=== PATIENT | female | born 1945 | race Caucasian/White ===

== ENCOUNTER → 2020-07-19 12:40 | Outpatient (BNVA) | payer MEDICARE, SELFPAY | PROVIDERS: PCP Internal Medicine; Visit Provider Internal Medicine Cardiovascular Disease | DX: I50.9 Heart failure, unspecified (principal); N18.6 End stage renal disease; Z99.2 Dependence on renal dialysis; I25.708 Atherosclerosis of coronary artery bypass graft(s), unspecified, with other forms of angina pectoris | CPT/HCPCS: 99212 ==

== ENCOUNTER 2020-08-18 19:10 | Emergency (ER) | payer MEDICARE, SELFPAY ==
--- NOTE | ~2020-08-18 | XR_ITS ---
EXAMINATION: XR CHEST CLINICAL INFORMATION: Weakness COMPARISON: CT abdomen pelvis 09/23/2019 and chest radiograph 09/20/2019 TECHNIQUE: Frontal view of the chest was obtained. FINDINGS: There is mild cardiac enlargement without evidence of CHF. Again seen is increased density in the retrocardiac region of the left lung base consistent with atelectasis/infiltrates/collapse plus minus pleural effusion. Findings are slightly increased when compared to the prior chest radiograph. At the time of the prior chest CT, left effusion and left lower lobe atelectasis was present. XR/XR chest 1V IMPRESSION: Left basilar infiltrate/atelectasis with associated probable effusion.
[2020-08-18 19:44] VITALS: BP 151/43; BP 160/50; PULSE 63; PULSE 70; RESP 18; TEMP 36.7; O2SAT 97; BMI 28.3
[2020-08-18 19:51] VITALS: BP 151/43; PULSE 63; RESP 18; TEMP 36.7; O2SAT 97
[2020-08-18 19:54] LABS: Glucose, Whole Blood 141 mg/dL (60-115)
--- NOTE | 2020-08-18 19:57 | ED_ITS ---
HPI - Weakness General Chief complaint: Weakness Stated complaint: failure to thrive Time Seen by Provider: 08/18/20 19:57 Source: patient Mode of arrival: ambulatory Limitations: no limitations History of Present Illness HPI Narrative: Patient's history of diabetes and sees renal disease on dialysis for last 2 years been feeling weak for last 2 weeks getting worse today while walking the kitchen she felt very weak slumped down and fell hitting her buttocks to the ground patient denies any fever no chills no shortness of breath no cough no chest pain or palpitation no syncope no seizures patient had full dialysis today patient denies any abdominal pain no nausea no vomiting has good appetite MD Complaint: generalized weakness Onset (ago): week(s) (2) Duration: constant Location: generalized Related Data Home Medications Medication Instructions Recorded Confirmed albuterol sulfate 90 mcg/actuation 2 puff INHALATION Q4H PRN g 06/30/20 0 07/19/20 aerosol inhaler atorvastatin 80 mg tablet 80 mg PO DAILY 06/30/20 07/19/20 cholecalciferol (vitamin D3) 25 25 mcg PO DAILY 06/30/20 07/19/20 mcg (1,000 unit) capsule dulaglutide 1.5 mg/0.5 mL mg SUBCUT 06/30/20 07/19/20 subcutaneous pen injector fenofibrate micronized 134 mg 134 mg PO DAILY 06/30/20 07/19/20 capsule fluticasone propionate 50 1 spray INTRANASAL DAILY 06/30/20 07/19/20 mcg/actuation nasal spray,suspension omeprazole 20 mg capsule,delayed 20 mg PO DAILY 06/30/20 07/19/20 release ondansetron 4 mg disintegrating 8 mg PO DIRECTED 06/30/20 07/19/20 tablet paroxetine HCl 20 mg tablet 20 mg PO QAM 06/30/20 07/19/20 sevelamer carbonate 800 mg tablet 800 mg PO TID tab 06/30/20 07/19/20 Previous Rx's Medication Instructions Recorded isosorbide dinitrate 10 mg tablet 10 mg PO BID 90 Days #180 tab 05/21/20 montelukast 10 mg tablet 10 mg PO DAILY #90 tab 05/26/20 metoprolol tartrate 25 mg tablet 25 mg PO BID #60 tab 06/07/20 gabapentin 300 mg capsule 300 mg PO BID 30 Days #60 cap 06/30/20 omega-3 acid ethyl esters 1 gram 2 cap PO DAILY #180 cap 07/01/20 capsule aspirin 81 mg tablet,delayed 81 mg PO DAILY #90 tab 07/19/20 release clopidogrel 75 mg tablet 75 mg PO DAILY #90 tab 07/19/20 losartan 25 mg tablet 25 mg PO DAILY #90 tab 07/19/20 Allergies Allergy/AdvReac Type Severity Reaction Status Date / Time Penicillins Allergy Mild RASH Verified 08/18/20 19:50 penicillin V Allergy Unknown rash of Verified 08/18/20 19:50 skin Review of Systems Review of Systems: Constitutional : No Weight loss, No Fever, No Chills ENT/Mouth : No sore throat, No Rhinorrhea Eyes: No Eye Pain, No Swelling Cardiovascular : No Chest Pain, no palpitations Respiratory : No Cough, No Sputum, no shortness of breath Gastrointestinal : no Nausea, No Vomiting, No Diarrhea, No abdominal Pain, no black stools Genitourinary : No Dysuria, No Urinary Frequency Musculoskeletal : No joint pain, No Myalgias, No Joint Swelling Skin : No Skin Lesions, No rash Neuro : No Weakness, No Numbness, No Dizziness, No Headache Psych : No Anxiety/Panic, No Depression Heme/Lymph: No Bruising, No Lymphadenopathy Endocrine : No Polyuria, No Polydipsia All other systems reviewed and are negative FORMERLY [facility], [facility] Past Medical History Medical History (Updated 08/19/20 @ 00:43 by Isrrael Trevino MD) Anemia Aortic stenosis CHF (congestive heart failure), NYHA class I Coronary artery disease ESRD (end stage renal disease) on dialysis H/O non-ST elevation myocardial infarction (NSTEMI) Hyperlipidemia Surgical History H/O abdominal hysterectomy History of angioplasty History of biopsy History of cataract surgery History of surgery Family History Family History Father No problems noted. Mother Bladder cancer Maternal Aunt Colon cancer Paternal Aunt Colon cancer Social History Social History Smoking Status: Former smoker Advance Directives: No Physical Exam Vital Signs: Vital Signs: Last Vital Signs Temp 97.8 F 08/18/20 21:23 Pulse 60 08/19/20 00:03 Resp 16 08/19/20 00:03 BP 145/65 H 08/19/20 00:03 Pulse Ox 95 08/19/20 00:03 Body Mass Index 28.3 Appearance: Alert. Oriented X3. No acute distress. Eyes: Pupils equal, round and reactive to light. ENT: Pharynx normal. Neck: Normal inspection. Neck supple. CVS: Normal heart rate and rhythm. Pulses normal. ,systolic ejection murmur of aortic stenosis at the apex Respiratory: No respiratory distress. Breath sounds normal. Abdomen: Soft and nontender. Bowel sounds are present, no mass palpable, no CVA tenderness Skin: Skin warm and dry. Normal skin color. Normal skin turgor. Extremities: No lower extremity edema. Av fistula left arm bruit present Neuro: Oriented X 3. No motor deficit. No sensory deficit. Course Course Course Narrative: Patient with generalized weakness workup is negative for any acute pathology had elevated troponin but no significant delta rise no acute EKG changes patient has PT coming to her house tomorrow will discharge patient home MDM - Weakness Lab Data Attestation: I reviewed the patient's lab results. Result diagrams: 08/18/20 21:14 08/18/20 21:14 Labs: Lab Results 08/18/20 08/18/20 08/18/20 Range/Units 19:41 20:53 21:14 WBC 8.7 (4.8-10.8) X10*3/uL RBC 3.70 L (4.20-5.50) X10*6/uL Hgb 10.6 L (12.0-16.0) g/dl Hct 34.6 L (37-47) % MCV 93.5 (80-98) fL MCH 28.6 (27.0-33.0) pg MCHC 30.6 L (31.0-35.0) g/dl RDW 14.6 (11.0-16.0) % Plt Count 210 (160-400) X10*3/uL MPV 11.6 (9.4-12.3) fL Immature Gran % (Auto) 0.2 (0.0-0.4) % Neut % (Auto) 52.2 (45-73) % Lymph % (Auto) 32.3 (20-40) % [place] % (Auto) 12.2 H (2-11) % Eos % (Auto) 2.9 (0-4) % Baso % (Auto) 0.2 (0-2) % Lymph # (Auto) 2.8 (1.2-4.9) X10*3/uL [place] # (Auto) 1.1 (0.1-1.2) X10*3/uL Eos # (Auto) 0.3 (0.0-0.4) X10*3/uL Baso # (Auto) 0.0 (0.0-0.2) X10*3/uL Abs Immat Gran (auto) 0.02 (0.00-0.03) X10*3/uL Absolute Neuts (auto) 4.6 (2.0-8.3) X10*3/uL Absolute Nucleated RBC 0.000 (0.0-0.012) X10*3/uL Nucleated RBC % (auto) 0.0 (0.0-0.2) /100WBC PT (10.8-13.0) SEC INR (0.9-1.1) Sodium (135-145) mmol/L Potassium (3.3-5.1) mmol/L Chloride (96-108) mmol/L Carbon Dioxide (22-29) mmol/L Anion Gap (12-20) BUN (9-16) mg/dL Creatinine (0.5-1.4) mg/dL Estim Creat Clear Calc Estimated GFR POC Glucose 141 H (60-115) mg/dL Random Glucose (60-115) mg/dL Lactic Acid (0.5-2.0) mmol/L Calcium (8.4-10.2) mg/dL Total Bilirubin (0.0-1.0) mg/dL Direct Bilirubin (0.0-0.5) mg/dL AST (5-31) U/L ALT (0-31) U/L Alkaline Phosphatase (39-117) U/L Total Creatine Kinase (26-140) U/L Troponin I High Sens (<3.5-17.0) ng/L Total Protein (6.5-8.0) g/dL Albumin (3.5-5.0) g/dL Urine Color Urine Appearance Urine pH (5.0-8.0) Ur Specific [place] (1.005-1.025) Urine Protein (NEG-TRACE) MG/DL Urine Glucose (UA) (NEG) MG/DL Urine Ketones (NEG) MG/DL Urine Blood (NEG) Urine Nitrite (NEG) Ur Leukocyte Esterase (NEG) Urine RBC (0) /HPF Urine WBC (0-4) /HPF Ur Squamous Epith Cells /LPF Urine Bacteria /LPF COVID-19 ([facility]) Negative (Negative) COVID-19 Clin Com See Note 08/18/20 08/18/20 08/18/20 Range/Units 21:14 21:14 21:14 WBC (4.8-10.8) X10*3/uL RBC (4.20-5.50) X10*6/uL Hgb (12.0-16.0) g/dl Hct (37-47) % MCV (80-98) fL MCH (27.0-33.0) pg MCHC (31.0-35.0) g/dl RDW (11.0-16.0) % Plt Count (160-400) X10*3/uL MPV (9.4-12.3) fL Immature Gran % (Auto) (0.0-0.4) % Neut % (Auto) (45-73) % Lymph % (Auto) (20-40) % [place] % (Auto) (2-11) % Eos % (Auto) (0-4) % Baso % (Auto) (0-2) % Lymph # (Auto) (1.2-4.9) X10*3/uL [place] # (Auto) (0.1-1.2) X10*3/uL Eos # (Auto) (0.0-0.4) X10*3/uL Baso # (Auto) (0.0-0.2) X10*3/uL Abs Immat Gran (auto) (0.00-0.03) X10*3/uL Absolute Neuts (auto) (2.0-8.3) X10*3/uL Absolute Nucleated RBC (0.0-0.012) X10*3/uL Nucleated RBC % (auto) (0.0-0.2) /100WBC PT 16.4 H (10.8-13.0) SEC INR 1.4 H (0.9-1.1) Sodium 136 (135-145) mmol/L Potassium 3.8 (3.3-5.1) mmol/L Chloride 97 (96-108) mmol/L Carbon Dioxide 29 (22-29) mmol/L Anion Gap 14 (12-20) BUN 30 H (9-16) mg/dL Creatinine 3.90 H (0.5-1.4) mg/dL Estim Creat Clear Calc 12.2 Estimated GFR 11 POC Glucose (60-115) mg/dL Random Glucose 135 H (60-115) mg/dL Lactic Acid 1.5 (0.5-2.0) mmol/L Calcium 7.9 L (8.4-10.2) mg/dL Total Bilirubin 0.7 (0.0-1.0) mg/dL Direct Bilirubin 0.3 (0.0-0.5) mg/dL AST 19 (5-31) U/L ALT 10 (0-31) U/L Alkaline Phosphatase 99 (39-117) U/L Total Creatine Kinase 298 H (26-140) U/L Troponin I High Sens (<3.5-17.0) ng/L Total Protein 6.2 L (6.5-8.0) g/dL Albumin 3.0 L (3.5-5.0) g/dL Urine Color Urine Appearance Urine pH (5.0-8.0) Ur Specific [place] (1.005-1.025) Urine Protein (NEG-TRACE) MG/DL Urine Glucose (UA) (NEG) MG/DL Urine Ketones (NEG) MG/DL Urine Blood (NEG) Urine Nitrite (NEG) Ur Leukocyte Esterase (NEG) Urine RBC (0) /HPF Urine WBC (0-4) /HPF Ur Squamous Epith Cells /LPF Urine Bacteria /LPF COVID-19 ([facility]) (Negative) COVID-19 Clin Com 08/18/20 08/18/20 08/18/20 Range/Units 21:14 22:11 23:52 WBC (4.8-10.8) X10*3/uL RBC (4.20-5.50) X10*6/uL Hgb (12.0-16.0) g/dl Hct (37-47) % MCV (80-98) fL MCH (27.0-33.0) pg MCHC (31.0-35.0) g/dl RDW (11.0-16.0) % Plt Count (160-400) X10*3/uL MPV (9.4-12.3) fL Immature Gran % (Auto) (0.0-0.4) % Neut % (Auto) (45-73) % Lymph % (Auto) (20-40) % [place] % (Auto) (2-11) % Eos % (Auto) (0-4) % Baso % (Auto) (0-2) % Lymph # (Auto) (1.2-4.9) X10*3/uL [place] # (Auto) (0.1-1.2) X10*3/uL Eos # (Auto) (0.0-0.4) X10*3/uL Baso # (Auto) (0.0-0.2) X10*3/uL Abs Immat Gran (auto) (0.00-0.03) X10*3/uL Absolute Neuts (auto) (2.0-8.3) X10*3/uL Absolute Nucleated RBC (0.0-0.012) X10*3/uL Nucleated RBC % (auto) (0.0-0.2) /100WBC PT (10.8-13.0) SEC INR (0.9-1.1) Sodium (135-145) mmol/L Potassium (3.3-5.1) mmol/L Chloride (96-108) mmol/L Carbon Dioxide (22-29) mmol/L Anion Gap (12-20) BUN (9-16) mg/dL Creatinine (0.5-1.4) mg/dL Estim Creat Clear Calc Estimated GFR POC Glucose (60-115) mg/dL Random Glucose (60-115) mg/dL Lactic Acid (0.5-2.0) mmol/L Calcium (8.4-10.2) mg/dL Total Bilirubin (0.0-1.0) mg/dL Direct Bilirubin (0.0-0.5) mg/dL AST (5-31) U/L ALT (0-31) U/L Alkaline Phosphatase (39-117) U/L Total Creatine Kinase (26-140) U/L Troponin I High Sens 95.6 H 93.9 H (<3.5-17.0) ng/L Total Protein (6.5-8.0) g/dL Albumin (3.5-5.0) g/dL Urine Color YELLOW Urine Appearance CLEAR Urine pH 7.5 (5.0-8.0) Ur Specific [place] 1.015 (1.005-1.025) Urine Protein 2+ H (NEG-TRACE) MG/DL Urine Glucose (UA) NEG (NEG) MG/DL Urine Ketones NEG (NEG) MG/DL Urine Blood TRACE (NEG) Urine Nitrite NEG (NEG) Ur Leukocyte Esterase NEG (NEG) Urine RBC 0-2 (0) /HPF Urine WBC 0 (0-4) /HPF Ur Squamous Epith Cells 1+ /LPF Urine Bacteria TRACE /LPF COVID-19 ([facility]) (Negative) COVID-19 Clin Com ECG Data Attestation: I personally reviewed and interpreted this ECG as follows: Interpretation: Normal sinus rhythm heart rate 62 beats per minute LVH left axis deviation right bundle-branch block nonspecific T inversion in anterior lateral leads no significant change from previous EKG no acute ischemia Discharge Plan Discharge Clinical Impression: Weakness Patient Disposition: Home, Self-Care Instructions: Weakness (ED) Additional Instructions: Continue medications as prescribed by PCP and follow-up with physical therapy as planned Prescriptions: No Action isosorbide dinitrate 10 mg tablet 10 mg PO BID 90 Days Qty: 180 RF: 0 montelukast 10 mg tablet 10 mg PO DAILY Qty: 90 RF: 3 metoprolol tartrate 25 mg tablet 25 mg PO BID Qty: 60 RF: 1 omega-3 acid ethyl esters 1 gram capsule 2 cap PO DAILY Qty: 180 RF: 3 ondansetron 4 mg tablet,disintegrating 8 mg PO DIRECTED RF: 0 paroxetine HCl 20 mg tablet 20 mg PO QAM RF: 0 Trulicity 1.5 mg/0.5 mL pen injector subcut RF: 0 fenofibrate micronized 134 mg capsule 134 mg PO DAILY RF: 0 atorvastatin 80 mg tablet 80 mg PO DAILY RF: 0 omeprazole 20 mg capsule,delayed release(DR/EC) 20 mg PO DAILY RF: 0 albuterol sulfate [ProAir HFA] 90 mcg/actuation HFA aerosol inhaler 2 puff inhalation Q4H PRNRF: 0 fluticasone propionate 50 mcg/actuation spray,suspension 1 spray intranasal DAILY RF: 0 cholecalciferol (vitamin D3) 25 mcg (1,000 unit) capsule 25 mcg PO DAILY RF: 0 sevelamer carbonate 800 mg tablet 800 mg PO TID RF: 0 gabapentin 300 mg capsule 300 mg PO BID 30 Days Qty: 60 RF: 1 aspirin 81 mg tablet,delayed release (DR/EC) 81 mg PO DAILY Qty: 90 RF: 1 clopidogrel [Plavix] 75 mg tablet 75 mg PO DAILY Qty: 90 RF: 1 losartan 25 mg tablet 25 mg PO DAILY Qty: 90 RF: 1
--- NOTE | 2020-08-18 20:02 | ECG_ITS ---
Test Reason : WEAKNESS Blood Pressure : / mmHG Vent. Rate : 062 BPM Atrial Rate : 062 BPM P-R Int : 152 ms QRS Dur : 128 ms QT Int : 484 ms P-R-T Axes : 060 -37 001 degrees QTc Int : 491 ms Normal sinus rhythm Possible Left atrial enlargement Left axis deviation Right bundle branch block Left ventricular hypertrophy with repolarization abnormality Abnormal ECG When compared with ECG of 26-SEP-2019 14:16, QRS duration has decreased Referred By: Isrrael Trevino Electronically Signed By:Wilmer Rivera
[2020-08-18 21:16] LABS: COVID-19 Test Negative (Negative)
[2020-08-18 21:20] LABS: MANUAL DIFF FLAG NO
[2020-08-18 21:21] LABS: Basophils Percent Auto 0.2 % (0-2); Eosinophils Absolute Auto 0.3 X10*3/uL (0.0-0.4); Eosinophils Percent Auto 2.9 % (0-4); Hematocrit 34.6 % (37-47); Hemoglobin 10.6 g/dl (12.0-16.0); Imm Gran Abs Auto 0.02 X10*3/uL (0.00-0.03); Imm Gran Pct Auto 0.2 % (0.0-0.4); Lymphocytes Absolute Auto 2.8 X10*3/uL (1.2-4.9); Lymphocytes Percent Auto 32.3 % (20-40); Mean Corpuscular HGB Conc 30.6 g/dl (31.0-35.0); Mean Corpuscular Hemoglobin 28.6 pg (27.0-33.0); Mean Corpuscular Volume 93.5 fL (80-98); Mean Platelet Volume 11.6 fL (9.4-12.3); Monocytes Absolute Auto 1.1 X10*3/uL (0.1-1.2); Monocytes Percent Auto 12.2 % (2-11); Neutrophils Absolute Auto 4.6 X10*3/uL (2.0-8.3); Neutrophils Percent Auto 52.2 % (45-73); Platelet Count 210 X10*3/uL (160-400); Red Cell Distribution Width 14.6 % (11.0-16.0); White Blood Count 8.7 X10*3/uL (4.8-10.8)
[2020-08-18 21:23] VITALS: BP 169/45; PULSE 61; RESP 15; TEMP 36.6; O2SAT 99
[2020-08-18 21:27] LABS: INTERNATIONAL NORM RATIO 1.4 (0.9-1.1); Prothrombin Time 16.4 SEC (10.8-13.0)
--- NOTE | 2020-08-18 21:34 | PC.NURSE ---
This RN speaking with pt's partner. Partner Conor reports decreased PO intake x almost 2 weeks. Conor phone # [phone].
[2020-08-18 21:43] LABS: Lactic Acid 1.5 mmol/L (0.5-2.0)
[2020-08-18 21:48] LABS: Alanine Aminotransferase 10 U/L (0-31); Alkaline Phosphatase 99 U/L (39-117); Anion Gap 14 (12-20); Aspartate Amino Transferase 19 U/L (5-31); Bilirubin Direct 0.3 mg/dL (0.0-0.5); Bilirubin Total 0.7 mg/dL (0.0-1.0); Blood Urea Nitrogen 30 mg/dL (9-16); Calcium 7.9 mg/dL (8.4-10.2); Carbon Dioxide 29 mmol/L (22-29); Chloride 97 mmol/L (96-108); Creatinine Clr Calc Pharmacy 12.2; Estimated Glomerular Filt Rate 11; Glucose Random 135 mg/dL (60-115); Potassium 3.8 mmol/L (3.3-5.1); Sodium 136 mmol/L (135-145); Total Protein 6.2 g/dL (6.5-8.0)
[2020-08-18 22:18] LABS: Glucose Urine UA NEG (NEG); Leukocyte Esterase Urine NEG (NEG); Nitrite Urine NEG (NEG); PH 7.5 (5.0-8.0); Specific Gravity - Urine 1.015 (1.005-1.025); Urine Blood TRACE (NEG); Urine Ketones NEG (NEG); Urine Protein 2+ MG/DL (NEG-TRACE)
[2020-08-18 22:21] LABS: Appearance Urine CLEAR; Color Urine YELLOW
[2020-08-18 22:26] LABS: RBC Urine 0-2 /HPF (0); WBC Urine 0 /HPF (0-4)
[2020-08-18 22:27] LABS: Bacteria Urine TRACE /LPF; Squamous Epithelial Cell Urine 1+ /LPF
--- NOTE | 2020-08-18 23:02 | PC.NURSE ---
SPOKE WITH PT, PLANS TO DISCHARGE HOME. PT REPORTS FIRST P.T. APPOINTMENT [facility] MORNING. EXPLAINED THAT IF SHORT TEM REHAB IS A POSSIBILTY IN THE FUTURE, IT WOULD TAKE DAYS OF WAITING IN ER. PT IS NOT A CANDIDATE FOR ADMISSION. PARTNER CALLED AND SAME INFORMATION RELAYED. PT GIVEN DIET SODA, CRACKERS AND PUDDING.
--- NOTE | 2020-08-18 23:07 | PC.NURSE ---
Pt partner, Conor, updated on plan for DC and transport home via EMS. Conor aware that plan has been discussed with the pt and that pt is agreeable. Plan for in-home PT services tomorrow. Conor and pt aware of plan for pt to use wheelchair for transport within home until PT clear pt to ambulate safely with walker.
[2020-08-18 23:22] LABS: Troponin-I High Sensitivity 95.6 ng/L (<3.5-17.0)
[2020-08-19 00:03] VITALS: BP 145/65; PULSE 60; RESP 16; O2SAT 95
[2020-08-19 00:34] LABS: Troponin-I High Sensitivity 93.9 ng/L (<3.5-17.0)
--- NOTE | 2020-08-19 01:40 | PC.NURSE ---
Pt's partner Conor made aware of EMS' arrival to [facility], Conor aware that pt is to be transported home at this time.
== END 2020-08-19 01:55 | disposition home or self-care (01) ==
PROVIDERS: Emergency Provider Internal Medicine; PCP Internal Medicine
DX: R62.7 Adult failure to thrive (principal); Z20.822 Contact with and (suspected) exposure to COVID-19; Z87.891 Personal history of nicotine dependence; I50.9 Heart failure, unspecified; Z79.899 Other long term (current) drug therapy
CPT/HCPCS: 36415; 71045; 80048; 80076; 81001; 82550; 82947; 83605; 84484; 85025; 85610; 87040; 87635; 93005; 99284

== ENCOUNTER 2020-10-24 19:56 | Inpatient (IN) | payer MEDICARE, SELFPAY ==
--- NOTE | ~2020-10-24 | XR_ITS ---
EXAMINATION: XR CHEST CLINICAL INFORMATION: Chest pain COMPARISON: Chest x-ray 08/18/2020 TECHNIQUE: Frontal view of the chest was obtained. FINDINGS: Chronic cardiomegaly. Cardiac stents again noted. Atherosclerotic disease of the aortic arch. The lungs are well aerated. Similar chronic diffuse coarsening of the interstitial markings. There is improved aeration of the left lung base. There is no lobar consolidation. Trace left-sided pleural effusion is unchanged. No pneumothorax. XR/XR chest 1V IMPRESSION: Improved aeration of the left lung base. No acute pulmonary pathology.
[2020-10-24 20:07] VITALS: BP 145/59; BP 156/47; PULSE 79; RESP 16; TEMP 36.8; O2SAT 100; BMI 26.0
--- NOTE | 2020-10-24 20:34 | ECG_ITS ---
Test Reason : CHEST PAIN Blood Pressure : / mmHG Vent. Rate : 079 BPM Atrial Rate : 079 BPM P-R Int : 148 ms QRS Dur : 132 ms QT Int : 434 ms P-R-T Axes : 057 -50 101 degrees QTc Int : 497 ms Normal sinus rhythm Possible Left atrial enlargement Right bundle branch block Left anterior fascicular block Bifascicular block ST more depressed in anerolateral leads as well lateral leads s/o of ischemia Abnormal ECG When compared to the previous EKG of ST more depressed in anterolateral leads Referred By: Bjorn Mantilla Electronically Signed By:MERRITT QUINONES MD
[2020-10-24 20:41] LABS: MANUAL DIFF FLAG NO
[2020-10-24 20:45] LABS: Basophils Percent Auto 0.2 % (0-2); Eosinophils Absolute Auto 0.5 X10*3/uL (0.0-0.4); Eosinophils Percent Auto 3.9 % (0-4); Hematocrit 36.6 % (37-47); Hemoglobin 11.2 g/dl (12.0-16.0); Imm Gran Abs Auto 0.04 X10*3/uL (0.00-0.03); Imm Gran Pct Auto 0.3 % (0.0-0.4); Lymphocytes Absolute Auto 4.1 X10*3/uL (1.2-4.9); Lymphocytes Percent Auto 33.9 % (20-40); Mean Corpuscular HGB Conc 30.6 g/dl (31.0-35.0); Mean Corpuscular Hemoglobin 30.1 pg (27.0-33.0); Mean Corpuscular Volume 98.4 fL (80-98); Mean Platelet Volume 11.6 fL (9.4-12.3); Monocytes Absolute Auto 1.2 X10*3/uL (0.1-1.2); Monocytes Percent Auto 9.4 % (2-11); Neutrophils Absolute Auto 6.4 X10*3/uL (2.0-8.3); Neutrophils Percent Auto 52.3 % (45-73); Platelet Count 260 X10*3/uL (160-400); Red Blood Count 3.72 X10*6/uL (4.20-5.50); Red Cell Distribution Width 15.2 % (11.0-16.0); White Blood Count 12.2 X10*3/uL (4.8-10.8)
--- NOTE | 2020-10-24 21:07 | ED_ITS ---
HPI - Chest Pain General Chief Complaint: Chest Pain Stated Complaint: RT SIDED CP Time Seen by Provider: 10/24/20 20:14 Source: patient Mode of arrival: EMS Limitations: no limitations History of Present Illness HPI narrative: 75-year-old female who presents emergency department for evaluation of shortness of breath and chest pain. She states that she went for a walk around 1:00 p.m. when she became short of breath and developed right- sided chest pain. She states that the pain was constant and got worse at around 4:00 p.m. when she was eating supper. She points to her right breast when asked to localize the pain. She states that the pain is a ?soreness ?. The pain is worse with breathing and with movement. She states she does feel some neck and jaw pain associated with the chest pain. She denied arm and back pain. She denied lightheadedness, dizziness, nausea, vomiting or diaphoresis associated with the pain. She denied fever, chills, cough. She used her inhaler at home with no improvement of her pain. She did not take any medications for her pain. She was transported to the emergency department by ambulance. Related Data Home Medications Medication Instructions Recorded Confirmed albuterol sulfate 90 mcg/actuation 2 puff INHALATION Q4H PRN g 06/30/20 08/26/20 aerosol inhaler cholecalciferol (vitamin D3) 25 25 mcg PO DAILY 06/30/20 08/26/20 mcg (1,000 unit) capsule fenofibrate micronized 134 mg 134 mg PO DAILY 06/30/20 08/26/20 capsule fluticasone propionate 50 1 spray INTRANASAL DAILY 06/30/20 08/26/20 mcg/actuation nasal spray,suspension omeprazole 20 mg capsule,delayed 20 mg PO DAILY 06/30/20 08/26/20 release ondansetron 4 mg disintegrating 8 mg PO DIRECTED 06/30/20 08/26/20 tablet sevelamer carbonate 800 mg tablet 800 mg PO TID tab 06/30/20 08/26/20 dulaglutide 1.5 mg/0.5 mL 1.5 mg SUBCUT QWEEK 08/24/20 08/26/20 subcutaneous pen injector losartan 25 mg tablet 50 mg PO DAILY tab 08/26/20 08/26/20 spironolactone 50 mg tablet 50 mg PO DAILY 08/26/20 08/26/20 Previous Rx's Medication Instructions Recorded isosorbide dinitrate 10 mg tablet 10 mg PO BID 90 Days #180 tab 05/21/20 montelukast 10 mg tablet 10 mg PO DAILY #90 tab 05/26/20 metoprolol tartrate 25 mg tablet 25 mg PO BID #60 tab 06/07/20 gabapentin 300 mg capsule 300 mg PO BID 30 Days #60 cap 06/30/20 omega-3 acid ethyl esters 1 gram 2 cap PO DAILY #180 cap 07/01/20 capsule aspirin 81 mg tablet,delayed 81 mg PO DAILY #90 tab 07/19/20 release clopidogrel 75 mg tablet 75 mg PO DAILY #90 tab 07/19/20 dulaglutide 1.5 mg/0.5 mL 1.5 mg SUBCUT QWEEK 90 Days #13 08/24/20 subcutaneous pen injector syringe famotidine 20 mg tablet 20 mg PO BEDTIME #90 tab 09/20/20 paroxetine HCl 20 mg tablet 20 mg PO QAM #90 tab 10/15/20 atorvastatin 80 mg tablet 80 mg PO DAILY #90 tab 10/18/20 Allergies Allergy/AdvReac Type Severity Reaction Status Date / Time Penicillins Allergy Mild RASH Verified 10/24/20 20:11 penicillin V Allergy Unknown rash of Verified 10/24/20 20:11 skin Review of Systems Review of Systems: Yes all other systems are reviewed and are negative [facility] Past Medical History [facility] Narrative: The patient states she lives with her partner. She denies tobacco, alcohol and drug use. Medical History Anemia Aortic stenosis CHF (congestive heart failure), NYHA class I Coronary artery disease ESRD (end stage renal disease) on dialysis H/O non-ST elevation myocardial infarction (NSTEMI) Hyperlipidemia Surgical History H/O abdominal hysterectomy History of angioplasty History of biopsy History of cataract surgery History of surgery Family History Family History Father No problems noted. Mother Bladder cancer Maternal Aunt Colon cancer Paternal Aunt Colon cancer Social History Social History (Updated 08/26/20 @ 12:30 by Caroline Vizcaino CMA) Alcohol intake: current Alcohol intake frequency: does not drink Smoking Status: Former smoker Advance Directives: No Advance Directives Information Provided: Yes Physical Exam Vital Signs: Vital Signs: Last Vital Signs Temp 98.6 F 10/25/20 00:19 Pulse 72 10/25/20 00:19 Resp 13 10/25/20 00:19 BP 115/42 L 10/25/20 00:19 Pulse Ox 91 L 10/25/20 00:19 Body Mass Index 26.0 Const: General: cooperative Orientation/consciousness: oriented to person and oriented to place Limitations: no limitations HENMT: Head: Yes normal to inspection, Yes normocephalic and Yes atraumatic Ears: external ears normal General nose exam: Normal external nose present Face and sinus: Yes normal facial exam Mouth: Normal oral and palatal mucosa present Throat: Yes posterior oropharynx normal Eyes: Periorbital: periorbital findings normal Eyelids: Yes eyelids normal Conjunctivae: conjunctivae normal Sclerae: sclerae normal Corneas: corn eas normal Pupils: Equal, round and reactive pupils present Direct Ophthalmoscopy: normal light reflex Neck: Neck: Yes full ROM, Yes no lymphadenopathy, Yes no meningeal signs, Yes trachea midline and Yes supple Chest: Chest palpation & inspection: normal inspection of the chest and normal palpation of entire chest wall Resp: Effort & Inspection: normal respiratory effort and able to speak in complete sentences Auscultation: clear to auscultation bilaterally Cardio: Rate: regular rate Rhythm: regular rhythm Heart sounds: S1 normal heart sound present, S2 normal heart sound present and Murmur heart sound present systolic III/ and with radiation to the left axilla GI: Inspection: Yes normal to inspection Palpation (GI): Soft to palpation, nontender, no guarding, not rigid and No hepatosplenomegaly present : General: Yes no CVA tenderness Back/Spine/Pelvis: Back: no CVA tenderness Cervical Spine: normal cervical lordosis Thoracic/Lumbar Spine: thoracic and lumbar spine normal to inspection Skin: Lesions: no lesions Rashes: no rashes Wounds: no wounds Neuro: General: oriented to person, oriented to place and no meningeal signs Cranial nerves: Yes CN's II-XII intact bilaterally and Yes Equal, round and reactive pupils present Cognition (Neuro): normal cognition Motor exam (neuro): 5/5 motor strength present throughout Extrem: General: Yes normal to inspection and Yes full ROM Psych: Appearance: well kempt Mental Status: mental status grossly normal Speech and movement: Normal speech and movement present Affect: normal affect Attitude: cooperative Thought process: Normal thought process present Thought content: Normal thought content present Course Course Course Narrative: 75-year-old female who presents emergency department for evaluation chest pain associated with shortness of breath, pain does radiate to her neck. The pain came on at 1500 hours. when the patient went for a walk. The pain has been constant since onset. Physical examination revealed no chest wall tenderness, she does have a heart murmur and she does have a history of aortic stenosis. Her exam was otherwise unremarkable. The patient's 12 lead EKG is abnormal with a right bundle-branch block and ST segment depression leads 1 and aVL and lead V4 through V6 which is unchanged from her previous EKG. I did order a cardiac workup on the patient. Patient's pain was treated with morphine 4 mg IV. 0115: The patient's laboratory evaluation revealed an elevated white blood count 50925, she has an elevated BUN creatinine but this is consistent with her chronic renal disease. The patient's initial troponin was elevated at 128. Her repeat 3 hour troponin was elevated greater than 50% at 337.. The patient was treated with aspirin 162 mg orally, morphine 4 mg IV and Zofran 4 mg IV. This did improve her pain. I did discuss the patient's elevated troponin with the covering air intercept controller, Dr. Marinelli. He felt that given her comorbid conditions, she was a poor candidate for cardiac catheterization and recommended that the patient be managed here in our facility. He recommended that the patient be placed on low-dose heparin protocol and given nitroglycerin paste 1 in to chest wall. I will discuss the patient's admission with the covering hospitalist. 0147: I discuss the patient's presentation with the covering hospitalist, and the patient will be admitted to the hospital service for further treatment. MDM - Chest Pain Lab Data Result diagrams: 10/24/20 20:38 10/24/20 22:15 Labs: Lab Results 10/24/20 10/24/20 10/24/20 Range/Units 20:38 20:38 20:38 WBC 12.2 H (4.8-10.8) X10*3/uL RBC 3.72 L (4.20-5.50) X10*6/uL Hgb 11.2 L (12.0-16.0) g/dl Hct 36.6 L (37-47) % MCV 98.4 H (80-98) fL MCH 30.1 (27.0-33.0) pg MCHC 30.6 L (31.0-35.0) g/dl RDW 15.2 (11.0-16.0) % Plt Count 260 (160-400) X10*3/uL MPV 11.6 (9.4-12.3) fL Immature Gran % (Auto) 0.3 (0.0-0.4) % Neut % (Auto) 52.3 (45-73) % Lymph % (Auto) 33.9 (20-40) % Greer % (Auto) 9.4 (2-11) % Eos % (Auto) 3.9 (0-4) % Baso % (Auto) 0.2 (0-2) % Lymph # (Auto) 4.1 (1.2-4.9) X10*3/uL Greer # (Auto) 1.2 (0.1-1.2) X10*3/uL Eos # (Auto) 0.5 H (0.0-0.4) X10*3/uL Baso # (Auto) 0.0 (0.0-0.2) X10*3/uL Abs Immat Gran (auto) 0.04 H (0.00-0.03) X10*3/uL Absolute Neuts (auto) 6.4 (2.0-8.3) X10*3/uL Absolute Nucleated RBC 0.000 (0.0-0.012) X10*3/uL Nucleated RBC % (auto) 0.0 (0.0-0.2) /100WBC PT Cancelled INR Cancelled APTT Cancelled Hold Blue Top SEE NOTE Sodium (135-145) mmol/L Potassium (3.3-5.1) mmol/L Chloride (96-108) mmol/L Carbon Dioxide (22-29) mmol/L Anion Gap (12-20) BUN (9-16) mg/dL Creatinine (0.5-1.4) mg/dL Estim Creat Clear Calc Estimated GFR Random Glucose (60-115) mg/dL Calcium (8.4-10.2) mg/dL Troponin I High Sens 128.1 H (<3.5-17.0) ng/L 10/24/20 10/24/20 Range/Units 22:15 23:44 WBC (4.8-10.8) X10*3/uL RBC (4.20-5.50) X10*6/uL Hgb (12.0-16.0) g/dl Hct (37-47) % MCV (80-98) fL MCH (27.0-33.0) pg MCHC (31.0-35.0) g/dl RDW (11.0-16.0) % Plt Count (160-400) X10*3/uL MPV (9.4-12.3) fL Immature Gran % (Auto) (0.0-0.4) % Neut % (Auto) (45-73) % Lymph % (Auto) (20-40) % Greer % (Auto) (2-11) % Eos % (Auto) (0-4) % Baso % (Auto) (0-2) % Lymph # (Auto) (1.2-4.9) X10*3/uL Greer # (Auto) (0.1-1.2) X10*3/uL Eos # (Auto) (0.0-0.4) X10*3/uL Baso # (Auto) (0.0-0.2) X10*3/uL Abs Immat Gran (auto) (0.00-0.03) X10*3/uL Absolute Neuts (auto) (2.0-8.3) X10*3/uL Absolute Nucleated RBC (0.0-0.012) X10*3/uL Nucleated RBC % (auto) (0.0-0.2) /100WBC PT INR APTT Hold Blue Top Sodium 138 (135-145) mmol/L Potassium 3.9 (3.3-5.1) mmol/L Chloride 100 (96-108) mmol/L Carbon Dioxide 19 L (22-29) mmol/L Anion Gap 23 H (12-20) BUN 43 H (9-16) mg/dL Creatinine 7.27 H* (0.5-1.4) mg/dL Estim Creat Clear Calc 5.9 Estimated GFR 5 Random Glucose 144 H (60-115) mg/dL Calcium 7.2 L D (8.4-10.2) mg/dL Troponin I High Sens 337.9 H D (<3.5-17.0) ng/L ECG Data ECG #1: Attestation: I personally reviewed and interpreted this ECG as follows: Interpretation: 2006: Normal sinus rhythm with a rate of 79, normal IN interval, prolonged QRS of 132 milliseconds, prolonged QTC of 497 milliseconds, ST segment depression in leads 1 and aVL, V 4 through V6, right bundle-branch block. Compared to EKG dated August 18, 2020, there are no acute changes. Discharge Plan Discharge Prescriptions: No Action isosorbide dinitrate 10 mg tablet 10 mg PO BID 90 Days Qty: 180 RF: 0 montelukast 10 mg tablet 10 mg PO DAILY Qty: 90 RF: 3 metoprolol tartrate 25 mg tablet 25 mg PO BID Qty: 60 RF: 1 omega-3 acid ethyl esters 1 gram capsule 2 cap PO DAILY Qty: 180 RF: 3 Trulicity 1.5 mg/0.5 mL pen injector 1.5 mg subcut QWEEK RF: 0 dulaglutide [Trulicity] 1.5 mg/0.5 mL pen injector 1.5 mg subcut QWEEK 90 Days Qty: 13 RF: 2 famotidine 20 mg tablet 20 mg PO BEDTIME Qty: 90 RF: 2 paroxetine HCl 20 mg tablet 20 mg PO QAM Qty: 90 RF: 2 atorvastatin 80 mg tablet 80 mg PO DAILY Qty: 90 RF: 3 spironolactone 50 mg tablet 50 mg PO DAILY RF: 0 losartan 25 mg tablet 50 mg PO DAILY RF: 0 ondansetron 4 mg tablet,disintegrating 8 mg PO DIRECTED RF: 0 fenofibrate micronized 134 mg capsule 134 mg PO DAILY RF: 0 omeprazole 20 mg capsule,delayed release(DR/EC) 20 mg PO DAILY RF: 0 albuterol sulfate [ProAir HFA] 90 mcg/actuation HFA aerosol inhaler 2 puff inhalation Q4H PRNRF: 0 fluticasone propionate 50 mcg/actuation spray,suspension 1 spray intranasal DAILY RF: 0 cholecalciferol (vitamin D3) 25 mcg (1,000 unit) capsule 25 mcg PO DAILY RF: 0 sevelamer carbonate 800 mg tablet 800 mg PO TID RF: 0 gabapentin 300 mg capsule 300 mg PO BID 30 Days Qty: 60 RF: 1 aspirin 81 mg tablet,delayed release (DR/EC) 81 mg PO DAILY Qty: 90 RF: 1 clopidogrel [Plavix] 75 mg tablet 75 mg PO DAILY Qty: 90 RF: 1
[2020-10-24 21:17] LABS: Troponin-I High Sensitivity 128.1 ng/L (<3.5-17.0)
[2020-10-24] MEDS: Morphine Sulfate 4 MG/ML CARTRIDGE IVPUSH (21:58)
[2020-10-24] MEDS: Aspirin 81 MG TAB.CHEW 162 MG PO (21:58)
[2020-10-24] MEDS: ondansetron HCL 4 MG/2 ML VIAL IVPUSH (22:05)
--- NOTE | 2020-10-24 22:06 | PC.NURSE ---
PT HAS 1 EPISODE OF VOMITING DURING MORPHINE ADMIN. PT RECEIVED 3 OF 4 MG TOTAL DOSE. MD VILLATORO
[2020-10-24 23:01] LABS: Anion Gap 23 (12-20); Blood Urea Nitrogen 43 mg/dL (9-16); Calcium 7.2 mg/dL (8.4-10.2); Carbon Dioxide 19 mmol/L (22-29); Chloride 100 mmol/L (96-108); Creatinine Clr Calc Pharmacy 5.9; Estimated Glomerular Filt Rate 5; Glucose Random 144 mg/dL (60-115); Potassium 3.9 mmol/L (3.3-5.1); Sodium 138 mmol/L (135-145)
--- NOTE | 2020-10-25 | ECG_ITS ---
Test Reason : CHEST NUMBNESS Blood Pressure : / mmHG Vent. Rate : 071 BPM Atrial Rate : 071 BPM P-R Int : 148 ms QRS Dur : 120 ms QT Int : 472 ms P-R-T Axes : 068 -47 -33 degrees QTc Int : 512 ms Normal sinus rhythm Right bundle branch block Left anterior fascicular block Bifascicular block ST & T wave abnormality, consider lateral ischemia Abnormal ECG When compared with ECG of 24-OCT-2020 20:06, ST less depressed in Lateral leads T wave inversion now evident in Inferior leads T wave inversion less evident in Lateral leads Referred By: Sadie Yun Electronically Signed By:MERRITT QUINONES MD
[2020-10-25 00:19] VITALS: BP 115/42; PULSE 72; RESP 13; TEMP 37; O2SAT 91
[2020-10-25 00:26] LABS: Troponin-I High Sensitivity 337.9 ng/L (<3.5-17.0)
[2020-10-25 01:47] LABS: Hematocrit 34.1 % (37-47); Hemoglobin 10.5 g/dl (12.0-16.0); Mean Corpuscular HGB Conc 30.8 g/dl (31.0-35.0); Mean Corpuscular Volume 97.4 fL (80-98); Mean Platelet Volume 11.4 fL (9.4-12.3); Platelet Count 237 X10*3/uL (160-400); Red Cell Distribution Width 15.1 % (11.0-16.0)
[2020-10-25 02:13] LABS: INTERNATIONAL NORM RATIO 1.3 (0.9-1.1); Prothrombin Time 14.9 SEC (10.8-13.0)
[2020-10-25] MEDS: Nitroglycerin 2 % Oint 1 GM Packet 1 INCH TRANSDERMA (02:23)
[2020-10-25] MEDS: Heparin Sodium,Porcine 5,000 UNIT/ML VIAL 4000 UNIT IVPUSH (02:24)
[2020-10-25 02:25] LABS: PTT Heparin Drip 38.2 SEC (53-77.9)
[2020-10-25] MEDS: Heparin Sodium,Porcine/1/2NS 25,000 UNIT/250 ML IV.SOLN 8 UNIT IVCONT (02:32)
[2020-10-25 04:25] VITALS: BP 112/33; PULSE 66; RESP 20; O2SAT 98
--- NOTE | 2020-10-25 04:25 | CA_ITS ---
Transthoracic Echocardiogram Patient (Last, First, Middle): Kristine Elizabeth A Gender: Female Date of : 1945 Age: 75 Procedure Date: 10/25/2020 Procedure Type: Transthoracic Echocardiogram Location: ER Height: 160.02 cm Weight: 66.68 kg BSA: 1.70 m2 Heart Rate: bpm BP: 112 / 33 mmHg General Utility Worker: Referring MD: Laxmi Silveira MD Financial Institution Manager: Simon Marinelli MD Symptoms: NSTEMI Study Quality: Good on Apical views ECG Rhythm: Sinus Conclusions: - 1. Mild LV systolic dysfunction with moderate LVH with grade 2 diastolic dysfunction with regional wall motion abnormality in the circumflex territory 2. Moderate to severe aortic stenosis 3. [id number] mitral regurgitation 4. Moderately dilated left atrium 5. Moderately elevated right ventricular systolic pressure 6. No pericardial effusion Findings Left Ventricle Normal left ventricular cavity size. There is moderately increased left ventricular wall thickness. The left ventricular systolic function is mildly decreased. The visually estimated ejection fraction is between 45-50%. There is evidence of regional wall motion abnormalities. Spectral Doppler is indicative of a pseudonormal filling pattern. E/E prime ratio is >15, consistent with elevated filling pressures. Evidence suggests grade II (moderate) diastolic dysfunction. Wall Motion Rest Echo Findings The inferolateral wall and basal anterolateral segment are hypokinetic. All other scored wall segments showed normal motion. Right Ventricle Normal right ventricular cavity size and systolic function. Atria The left atrium is moderately dilated. There is no evidence of interatrial shunt. The right atrium is normal in size. Aortic Valve There is moderate calcification of the aortic valve. There is moderate to severe aortic valve stenosis. The peak aortic gradient is 43 mmHg.The mean gradient is 28 mmHg. The aortic valve area is 1.09 cm2. There is mild aortic valve regurgitation. Mitral Valve There is mild anterior and posterior mitral leaflet thickening. There is moderate mitral annular calcification. There is mild to moderate mitral valve regurgitation. There is no mitral valve stenosis. Pulmonic Valve The pulmonic valve was not well visualized. Tricuspid Valve Likely normal tricuspid valve structure and function. There is mild tricuspid valve regurgitation. Moderate pulmonary hypertension is present. Great Vessels All visible segments of the aorta are normal in size. The pulmonary artery was not well visualized. Venous The inferior vena cava is normal in size and collapses greater than 50% with inspiration. Pericardium/Pleural There is no evidence of pericardial effusion. Prior Study Comparison LV systolic function is mildly depressed with worsening aortic stenosis Measurements 2D Linear Measurements IVSd: 1.56 0.6-0.9/0.6-1.0 cm LVIDd: 4.17 3.9-5.3/4.2-5.9 cm LVIDd Index: 2.45 2.4-3.2/2.2-3.1 cm/m2 LVIDs: 3.12 2.0-3.6 cm LVPWd: 1.46 0.7-1.1 cm Ao Root: 2.90 2.1-3.5 cm LA Diam: 3.90 2.7-3.8/3.0-4.0 cm LAIDs Index: 2.29 1.5-2.3 cm/m2 LV Mass: 311.15 67-162/88-224 g LV Mass Index: 183.03 43-95/49-115 g/m2 LVOT Diam: 2.30 3.0+(-)1.3 cm 2D Systolic Function EF 4C: 46.20 >55% EF 2C: 40.90 >55% Mitral Valve MV VTI: 0.49 MV Pk Aries: 1.47 MV Mn Aries: 0.82 MV Pk Grad: 9.00 MV Mn Grad: 3.00 MV Pk E: 1.27 MV PK A: 0.87 MV Decel Time: 155.00 E/A: 1.50 E'Lateral: 5.90 E'Medial: 5.32 E/E' Med: 23.90 E/E' Lat: 21.50 PHT: 45.00 MVA PHT: 4.89 MVA Continuity: 1.97 Decel [place]: 8.20 Aortic Valve AoV Pk Aries: 3.28 AoV Mn Aries: 2.51 AoV VTI: 0.89 AoV Pk Grad: 43.00 Aov Mn Grad: 28.00 ISAIAS Cont.VTI: 1.09 AI Pk Aries: 2.53 AI [place]: 2.41 LVOT LVOT Pk Aries: 0.78 LVOT Mn Aries: 0.55 LVOT VTI: 0.23 LVOT Pk Grad: 2.00 LVOT Mn Grad: 2.00 LVOT Diam: 2.30 LVOT Area: 4.15 Diastolic Function MV Pk E: 1.27 MV Pk A: 0.87 E/A: 1.50 E'Medial: 5.32 E/E' Med: 23.90 E' Laterial: 5.90 E/E' Lat: 21.50 Tricuspid Valve TR Pk Aries: 3.31 TR Pk Grad: 44.00 RA Press: 3.00 RVSP: 47.00 Great Vessels Aorta Ao Root-2D: 2.90 2.0-3.7 cm Ao Asc: 3.60 2.1-3.4 cm Pulmonary Valve PV Pk Aries: 1.34 Peak PV Grad: 7.00 Updated in Other Vendor System with Status of Final Simon Marinelli MD electronically signed on 10/25/2020 12:25:54 PM with status of Final
--- NOTE | 2020-10-25 04:55 | PM.IMHP ---
History of Present Illness Date of Service: 10/25/20 Chief Complaint: Chest pain This is a 75-year-old female with a past medical history of aortic stenosis, CHF, CAD, ESR on dialysis Sunday, NSTEMI, HLD, who presents to the hospital complaining of chest pain and shortness of breath. She states that her shortness of breath and chest pain started after she went for a walk around 1:00 p.m. she reports that the pain is all over her chest, constant, 9/10, radiating to the back, aching sensation. She felt that the pain got worse around 4:00 p.m., but has not improved. She denies any dizziness, no headache, no change in vision, no palpitations, no abdominal pain nausea or vomiting, no diarrhea constipation, no urinary symptoms and no lower extremity edema. No fever chills. On arrival to the ED patient hemodynamically stable with No significant abnormal vitals Labs are significant for WBC count of 12.2, hemoglobin of 11.2, PT of 14.9, INR of 1.3, PTT of 30.2, BUN of 43, creatinine of 7.27, high sensitivity troponin of 128 that increased to 337, EKG showed ST depression in aVL, V4 to V6, Chest x-ray showed improved aeration of the left lung base with no acute pulmonary pathology. Past medical history as below on confirm with patient Review of Systems Review of Systems: Yes all other systems are reviewed and are negative [facility] Medical History Anemia Aortic stenosis CHF (congestive heart failure), NYHA class I Coronary artery disease ESRD (end stage renal disease) on dialysis H/O non-ST elevation myocardial infarction (NSTEMI) Hyperlipidemia Family History Father No problems noted. Mother Bladder cancer Maternal Aunt Colon cancer Paternal Aunt Colon cancer Surgical History H/O abdominal hysterectomy History of angioplasty History of biopsy History of cataract surgery History of surgery Social History Alcohol intake: current Alcohol intake frequency: does not drink Smoking Status: Former smoker Advance Directives: No Advance Directives Information Provided: Yes Meds Allergies Allergy/AdvReac Type Severity Reaction Status Date / Time Penicillins Allergy Mild RASH Verified 10/24/20 20:11 penicillin V Allergy Unknown rash of Verified 10/24/20 20:11 skin Active Medications: Current Medications Generic Name Dose Route Start Last Admin Trade Name Freq PRN Reason Stop Dose Admin Acetaminophen 650 mg 10/25/20 04:25 Acetaminophen 325 Mg Tablet PO Q6H PRN Pain, Mild (Pain Scale 1-3) Docusate Sodium 100 mg 10/25/20 04:25 Docusate Sodium 100 Mg Capsule PO DAILY PRN Constipation Heparin Sodium (Porcine) 2,700 unit 10/25/20 01:09 Heparin Sodium,Porcine 5,000 Unit/Ml Vial 40 unit/kg (2700 unit) IVPUSH BOLUS PRN 40 unit/kg - Heparin Protocol Heparin Sodium (Porcine) 5,300 unit 10/25/20 01:09 Heparin Sodium,Porcine 5,000 Unit/Ml Vial 80 unit/kg (5300 unit) IVPUSH BOLUS PRN 80 unit/kg - Heparin Protocol Heparin Sodium/Sodium Chloride 25,000 unit in 250 mls @ 8.001 mls/hr 10/25/20 01:15 10/25/20 02:32 IVCONT 12 units/kg/hr .Q24H MOSHE 8 mls/hr Administration Protocol 12 UNITS/KG/HR Ondansetron HCl 4 mg 10/25/20 04:25 Ondansetron Hcl 4 Mg/2 Ml Vial IVPUSH Q8H PRN Nausea and Vomiting Sodium Chloride 3 ml 10/25/20 08:00 0.9 % Sodium Chloride Flush 3 Ml Syringe IVFLUSH QSHIFT [facility] Home Medications Medication Instructions Recorded Confirmed Last Taken Type albuterol sulfate 90 mcg/actuation 2 puff INHALATION Q4H PRN g 06/30/20 10/25/20 10/24/20 History aerosol inhaler cholecalciferol (vitamin D3) 25 25 mcg PO DAILY 06/30/20 10/25/20 10/24/20 History mcg (1,000 unit) capsule fenofibrate micronized 134 mg 134 mg PO DAILY 06/30/20 10/25/20 10/24/20 History capsule fluticasone propionate 50 1 spray INTRANASAL DAILY 06/30/20 10/25/20 10/24/20 History mcg/actuation nasal spray,suspension omeprazole 20 mg capsule,delayed 20 mg PO DAILY 06/30/20 10/25/20 10/24/20 History release ondansetron 4 mg disintegrating 8 mg PO DIRECTED 06/30/20 10/25/20 10/24/20 History tablet sevelamer carbonate 800 mg tablet 800 mg PO TID tab 06/30/20 10/25/20 10/24/20 History dulaglutide 1.5 mg/0.5 mL 1.5 mg SUBCUT QWEEK 08/24/20 10/25/20 10/24/20 History subcutaneous pen injector losartan 25 mg tablet 50 mg PO DAILY tab 08/26/20 10/25/20 10/24/20 History spironolactone 50 mg tablet 50 mg PO DAILY 08/26/20 10/25/20 10/24/20 History Physical Exam Vital Signs and Narrative: Vital Signs: Last Vital Signs Temp 98.6 F 10/25/20 00:19 Pulse 66 10/25/20 04:25 Resp 20 10/25/20 04:25 BP 112/33 L 10/25/20 04:25 Pulse Ox 98 10/25/20 04:25 Body Mass Index 26.0 Const: General: cooperative and no acute distress Orientation/consciousness: patient oriented x3 Eyes: General: appearance normal, both eyes and all related structures Resp: Effort & Inspection: normal respiratory effort and able to speak in complete sentences Auscultation: clear to auscultation bilaterally Cardio: Rate: regular rate Rhythm: regular rhythm GI: Palpation (GI): Soft to palpation Auscultation: normal bowel sounds Skin: General skin exam: no rashes or lesions noted Neuro: General: patient oriented x3 Cognition (Neuro): normal cognition Extrem: General: Yes normal to inspection and Yes no pedal edema Results Labs CBC and Chem 7: 10/25/20 01:41 10/24/20 22:15 Labs: Laboratory Results - last 24 hr 10/24/20 10/24/20 10/24/20 20:38 20:38 20:38 MCV 98.4 H MCH 30.1 MCHC 30.6 L RDW 15.2 Plt Count 260 MPV 11.6 Immature Gran % (Auto) 0.3 Neut % (Auto) 52.3 Lymph % (Auto) 33.9 [place] % (Auto) 9.4 Eos % (Auto) 3.9 Baso % (Auto) 0.2 Lymph # (Auto) 4.1 [place] # (Auto) 1.2 Eos # (Auto) 0.5 H Baso # (Auto) 0.0 Abs Immat Gran (auto) 0.04 H Absolute Neuts (auto) 6.4 Absolute Nucleated RBC 0.000 Nucleated RBC % (auto) 0.0 PT Cancelled INR Cancelled APTT Cancelled PTT (Heparin Protocol) Hold Blue Top SEE NOTE Anion Gap Estim Creat Clear Calc Estimated GFR Random Glucose Calcium Troponin I High Sens 128.1 H 10/24/20 10/24/20 10/25/20 22:15 23:44 01:41 MCV 97.4 MCH 30.0 MCHC 30.8 L RDW 15.1 Plt Count 237 MPV 11.4 Immature Gran % (Auto) Neut % (Auto) Lymph % (Auto) [place] % (Auto) Eos % (Auto) Baso % (Auto) Lymph # (Auto) [place] # (Auto) Eos # (Auto) Baso # (Auto) Abs Immat Gran (auto) Absolute Neuts (auto) Absolute Nucleated RBC 0.000 Nucleated RBC % (auto) 0.0 PT INR APTT PTT (Heparin Protocol) Hold Blue Top Anion Gap 23 H Estim Creat Clear Calc 5.9 Estimated GFR 5 Random Glucose 144 H Calcium 7.2 L D Troponin I High Sens 337.9 H D 10/25/20 02:03 MCV MCH MCHC RDW Plt Count MPV Immature Gran % (Auto) Neut % (Auto) Lymph % (Auto) [place] % (Auto) Eos % (Auto) Baso % (Auto) Lymph # (Auto) [place] # (Auto) Eos # (Auto) Baso # (Auto) Abs Immat Gran (auto) Absolute Neuts (auto) Absolute Nucleated RBC Nucleated RBC % (auto) PT 14.9 H INR 1.3 H APTT PTT (Heparin Protocol) 38.2 L Hold Blue Top Anion Gap Estim Creat Clear Calc Estimated GFR Random Glucose Calcium Troponin I High Sens Imaging Radiologist's Impressions: Impressions Chest X-Ray 10/24/20 20:34 IMPRESSION: Improved aeration of the left lung base. No acute pulmonary pathology. Assessment and Plan (1) Acute non-ST elevation myocardial infarction (NSTEMI): Status: Acute (2) ESRD (end stage renal disease) on dialysis: Problem details: Left arm fistulogram with angioplasty Dr. Corbett September 2020 Status: Acute (3) Dyspnea: Status: Acute 75-year-old female with past medical history coronary artery disease presents to the hospital complaints of chest pain and shortness of breath # NSTEMI - elevated troponin, typical chest pain, EKG since his suggestive of NSTEMI including ST depressions in leads aVL, V4, V5, V6 - patient started on heparin GGT - continue aspirin, continue metoprolol - will obtain echocardiogram - consult cardiology - trend troponin # shortness of breath - most likely secondary to chest pain versus CHF exacerbation in the setting of NSTEMI - chest x-ray negative for any volume overload - last echocardiogram done on August 2019 shows ejection fraction of 55-60% Plan: - will obtain BNP - repeat echo - if elevated BNP will start her on IV diuretic - currently not hypoxic and not requiring any oxygen, will monitor for any increased O2 requirements # ESRD - dialysis Sunday - will consult Nephrology for dialysis while inpatient # diabetes - hold oral antihyperglycemics - start low-dose sliding scale insulin - Diabetic diet # HTN - stable - continue home meds
[2020-10-25 05:07] LABS: COVID-19 Test Negative (Negative); IDNOW Serial# 9DD0AD1C
--- NOTE | 2020-10-25 05:27 | PC.NURSE ---
DELAY IN HEPARIN ADMIN D/T DIFFICULTY W/PT INR LAB DRAW. PT VERY DIFFICULT DRAW, W/ L SIDE FISTULA
[2020-10-25 07:27] LABS: B Type Natriuretic Peptide 2994 pg/mL (<100)
[2020-10-25 07:46] LABS: Glucose, Whole Blood 90 mg/dL (60-115)
[2020-10-25 08:10] VITALS: BP 105/31; PULSE 68
[2020-10-25] MEDS: Aspirin Enteric Coated 81 MG TABLET.DR PO (08:10)
[2020-10-25] MEDS: Fenofibrate,Micronized 134 MG CAPSULE PO (08:10)
[2020-10-25] MEDS: Cholecalciferol (Vitamin D3) 25 MCG TABLET PO (08:10)
[2020-10-25] MEDS: Metoprolol Tartrate 25 MG TABLET PO (08:10)
[2020-10-25] MEDS: Losartan Potassium 50 MG TABLET PO (08:10)
[2020-10-25] MEDS: Montelukast Sodium 10 MG TABLET PO (08:10)
[2020-10-25 08:11] VITALS: BP 105/31; PULSE 68
[2020-10-25] MEDS: Atorvastatin Calcium 80 MG TABLET PO (08:11)
[2020-10-25] MEDS: Isosorbide Dinitrate 10 MG TABLET PO (08:11)
[2020-10-25] MEDS: Gabapentin 300 MG CAPSULE PO (08:11)
[2020-10-25] MEDS: Omeprazole 20 MG CAPSULE.DR PO (08:11)
[2020-10-25] MEDS: Spironolactone 25 MG TABLET 50 MG PO (08:11)
[2020-10-25] MEDS: PARoxetine HCL 20 MG TABLET PO (08:12)
--- NOTE | 2020-10-25 09:04 | PC.NURSE ---
cardio at bedside. pt reports to md chest pressure. plan for nitro drip and transfer to [facility] for cardiac cath
--- NOTE | 2020-10-25 09:09 | P.CONCA_ITS ---
History of Present Illness History of Present Illness Date of Service: 10/25/20 Requesting physician: Laxmi Silveira Consult reason: myocardial infarction Chief complaint: NSTEMI Narrative: Thank you for asking us to see Kristine for acute coronary syndrome. She is a 75-year-old woman with longstanding coronary artery disease with multiple PCIs in the past with complicated medical history. Last PCI was in May due to recurrent NSTEMI and drug-eluting stent to the circumflex artery at that time. She also history of diastolic heart failure as well as ischemic heart failure in the past. She has history of aortic stenosis which appears to be moderately severe, end-stage renal disease on hemodialysis, Sunday, Sunday and Sunday. Last session was on Sunday. She also has history of diabetes as well as hypertension. She presents to the hospital yesterday with onset of severe chest discomfort at 16:00. She says she has been getting on and off chest discomfort the last couple weeks but hand was self relieving and not had to take nitroglycerin at home. She had no does discomfort. Yesterday while she was walking in her apartment she then developed severe chest pressure similar to prior anginal symptoms. Symptoms then persisted and she eventually called EMS who brought her to the emergency room at around 18:00. Subsequent troponin was slightly elevated and subsequent troponin after 3 hours of further elevated. She was started on IV heparin drip. She was given morphine and nitro paste and symptoms improved significantly however status still been persistent. Troponin this morning is further elevated to 8000. This is high sensitivity troponin levels. She continues to have chest pressure 2/10 in intensity. Her blood pressure is on the softer side systolic blood pressure 107. She is also complaining of some shortness of breath at rest. Denies any palpitations, lightheadedness, syncope at home. She has been taking all her medications at home includes dual antiplatelet therapy with aspirin and Plavix. She also on high-intensity statin therapy at home. Dual antianginal therapy with metoprolol and Isordil. Her heart failure syndrome has been well controlled since initiation of dialysis. He has not had any hospitalization regarding the same. Review of Systems Constitutional: Constitutional: Denies body ache(s), Denies chills, Reports fatigue and Denies fever(s) Cardiovascular: Cardiovascular: Reports chest pain, Reports chest pain with activity, Denies lightheadedness, Denies Loss of Consciousness, Denies palpitations and Reports dyspnea Respiratory: Respiratory: Reports no additional respiratory complaints and Reports dyspnea Gastrointestinal: Gastrointestinal: Reports no additional gastrointestinal complaints Genitourinary: Genitourinary: Reports no additional female genitourinary complaints Musculoskeletal: Musculoskeletal: Reports no additional musculoskeletal complaints Neurologic: Reports system reviewed and no additional complaints, except as documented Psychiatric: Psychiatric: Reports no additional psychiatric complaints Endocrine: Endocrine: Reports no additional endocrine complaints, Reports fatigue and Denies palpitations Hematologic/Lymphatic: Hematologic/Lymphatic: Reports no additional hemato logic/lymphatic complaints [facility] Past Medical History Medical History Anemia Aortic stenosis CHF (congestive heart failure), NYHA class I Coronary artery disease ESRD (end stage renal disease) on dialysis H/O non-ST elevation myocardial infarction (NSTEMI) Hyperlipidemia Family History Family History Father No problems noted. Mother Bladder cancer Maternal Aunt Colon cancer Paternal Aunt Colon cancer Surgical History Surgical History H/O abdominal hysterectomy History of angioplasty History of biopsy History of cataract surgery History of surgery Social History Social History Alcohol intake: never Smoking Status: Never smoker Use of substances other than those prescribed or required for medical reasons: No Advance Directives: No Advance Directives Information Provided: Yes Meds Allergies Allergy/AdvReac Type Severity Reaction Status Date / Time Penicillins Allergy Mild RASH Verified 10/24/20 20:11 penicillin V Allergy Unknown rash of Verified 10/24/20 20:11 skin Active Medications: Current Medications Generic Name Dose Route Start Last Admin Trade Name Freq PRN Reason Stop Dose Admin Acetaminophen 650 mg 10/25/20 04:25 Acetaminophen 325 Mg Tablet PO Q6H PRN Pain, Mild (Pain Scale 1-3) Albuterol Sulfate 2 puff 10/25/20 05:19 Albuterol Sulfate 90 Mcg 8 Gm Inhaler INHALE Q4H PRN Shortness Of Breath Or Wheezing Aspirin 81 mg 10/25/20 09:00 10/25/20 08:10 Aspirin Enteric Coated 81 Mg Tablet. PO 81 mg DAILY MOSHE Administration Atorvastatin Calcium 80 mg 10/25/20 09:00 10/25/20 08:11 Atorvastatin Calcium 80 Mg Tablet PO 80 mg DAILY [facility] Administration Docusate Sodium 100 mg 10/25/20 04:25 Docusate Sodium 100 Mg Capsule PO DAILY PRN Constipation Famotidine 20 mg 10/25/20 21:00 Famotidine 20 Mg Tablet PO BEDTIME [facility] Fenofibrate 134 mg 10/25/20 09:00 10/25/20 08:10 Fenofibrate,Micronized 134 Mg Capsule PO 134 mg DAILY [facility] Administration Fluticasone Propionate 1 spray 10/25/20 09:00 10/25/20 08:12 Fluticasone Propionate Nasal 16 Gm [place] NOSTRIL-B Not Given DAILY [facility] Gabapentin 300 mg 10/25/20 09:00 10/25/20 08:11 Gabapentin 300 Mg Capsule PO 300 mg BID MOSHE Administration Heparin Sodium (Porcine) 2,700 unit 10/25/20 01:09 Heparin Sodium,Porcine 5,000 Unit/Ml Vial 40 unit/kg (2700 unit) IVPUSH BOLUS PRN 40 unit/kg - Heparin Protocol Heparin Sodium (Porcine) 5,300 unit 10/25/20 01:09 Heparin Sodium,Porcine 5,000 Unit/Ml Vial 80 unit/kg (5300 unit) IVPUSH BOLUS PRN 80 unit/kg - Heparin Protocol Heparin Sodium/Sodium Chloride 25,000 unit in 250 mls @ 8.001 mls/hr 10/25/20 01:15 10/25/20 02:32 IVCONT 12 units/kg/hr .Q24H MOSHE 8 mls/hr Administration Protocol 12 UNITS/KG/HR Insulin Human Lispro 0 unit 10/25/20 07:30 10/25/20 07:53 Insulin Lispro 100 Unit/Ml 3 Ml Vial SUBCUT Not Given QIDACHS [facility] Protocol Isosorbide Dinitrate 10 mg 10/25/20 09:00 10/25/20 08:11 Isosorbide Dinitrate 10 Mg Tablet PO 10 mg BID [facility] Administration Protocol Losartan Potassium 50 mg 10/25/20 09:00 10/25/20 08:10 Losartan Potassium 50 Mg Tablet PO 50 mg DAILY [facility] Administration Protocol Metoprolol Tartrate 25 mg 10/25/20 09:00 10/25/20 08:10 Metoprolol Tartrate 25 Mg Tablet PO 25 mg BID [facility] Administration Protocol Montelukast Sodium 10 mg 10/25/20 09:00 10/25/20 08:10 Montelukast Sodium 10 Mg Tablet PO 10 mg DAILY [facility] Administration Omeprazole 20 mg 10/25/20 06:30 10/25/20 08:11 Omeprazole 20 Mg Capsule. PO 20 mg DAILY@0630 [facility] Administration Ondansetron HCl 4 mg 10/25/20 04:25 Ondansetron Hcl 4 Mg/2 Ml Vial IVPUSH Q8H PRN Nausea and Vomiting Paroxetine HCl 20 mg 10/25/20 09:00 10/25/20 08:12 Paroxetine Hcl 20 Mg Tablet PO 20 mg DAILY [facility] Administration Sodium Chloride 3 ml 10/25/20 08:00 10/25/20 08:12 0.9 % Sodium Chloride Flush 3 Ml Syringe IVFLUSH Not Given QSHIFT [facility] Spironolactone 50 mg 10/25/20 09:00 10/25/20 08:11 Spironolactone 25 Mg Tablet PO 50 mg DAILY [facility] Administration Protocol Vitamin D 25 mcg 10/25/20 09:00 10/25/20 08:10 Cholecalciferol (Vitamin D3) 25 Mcg Tablet PO 25 mcg DAILY [facility] Administration Home Medications Medication Instructions Recorded Confirmed Last Taken Type albuterol sulfate 90 mcg/actuation 2 puff INHALATION Q4H PRN g 06/30/20 1 10/24/20 History aerosol inhaler cholecalciferol (vitamin D3) 25 25 mcg PO DAILY 06/30/20 10/25/20 10/24/20 History mcg (1,000 unit) capsule fenofibrate micronized 134 mg 134 mg PO DAILY 06/30/20 10/25/20 10/24/20 History capsule fluticasone propionate 50 1 spray INTRANASAL DAILY 06/30/20 10/25/20 10/24/20 History mcg/actuation nasal spray,suspension omeprazole 20 mg capsule,delayed 20 mg PO DAILY 06/30/20 10/25/20 10/24/20 History release ondansetron 4 mg disintegrating 8 mg PO DIRECTED 06/30/20 10/25/20 10/24/20 History tablet sevelamer carbonate 800 mg tablet 800 mg PO TID tab 06/30/20 10/25/20 10/24/20 History losartan 25 mg tablet 50 mg PO DAILY tab 08/26/20 10/25/20 10/24/20 History spironolactone 50 mg tablet 50 mg PO DAILY 08/26/20 10/25/20 10/24/20 History Physical Exam Vital Signs: Vital Signs: Last Vital Signs Temp 98.6 F 10/25/20 00:19 Pulse 68 10/25/20 08:11 Resp 20 10/25/20 04:25 BP 105/31 L 10/25/20 08:11 Pulse Ox 98 10/25/20 04:25 Body Mass Index 26.0 Const: General: cooperative, comfortable, no acute distress, alert, awake and ill appearing Nutritional Appearance: overweight Orientation/consciousness: patient oriented x3 HENMT: Head: Yes normocephalic and Yes atraumatic Neck: Neck: Yes trachea midline, Yes supple and Yes no JVD Chest: Chest palpation & inspection: normal inspection of the chest Cardio: Jugular venous distension: no JVD Palpation: normal PMI Rate: regular rate Rhythm: regular rhythm Heart sounds: S1 normal heart sound present and Murmur heart sound present systolic late, decrescendo and crescendo Peripheral pulses: other (Plus one distal pulses) GI: Auscultation: normal bowel sounds Skin: General skin exam: no rashes or lesions noted and ecchymosis Neuro: General: patient oriented x3 and no focal motor deficits Extrem: General: Yes no clubbing, cyanosis or edema Psych: Appearance: grossly normal Results Labs and Meds Result diagrams: 10/25/20 01:41 10/24/20 22:15 Lab results: Laboratory Results - last 24 hr 10/24/20 10/24/20 10/24/20 20:38 20:38 20:38 WBC 12.2 H RBC 3.72 L Hgb 11.2 L Hct 36.6 L MCV 98.4 H MCH 30.1 MCHC 30.6 L RDW 15.2 Plt Count 260 MPV 11.6 Immature Gran % (Auto) 0.3 Neut % (Auto) 52.3 Lymph % (Auto) 33.9 [place] % (Auto) 9.4 Eos % (Auto) 3.9 Baso % (Auto) 0.2 Lymph # (Auto) 4.1 [place] # (Auto) 1.2 Eos # (Auto) 0.5 H Baso # (Auto) 0.0 Abs Immat Gran (auto) 0.04 H Absolute Neuts (auto) 6.4 Absolute Nucleated RBC 0.000 Nucleated RBC % (auto) 0.0 PT Cancelled INR Cancelled APTT Cancelled PTT (Heparin Protocol) Hold Blue Top SEE NOTE Sodium Potassium Chloride Carbon Dioxide Anion Gap BUN Creatinine Estim Creat Clear Calc Estimated GFR POC Glucose Random Glucose Calcium Troponin I High Sens 128.1 H B-Natriuretic Peptide COVID-19 ([facility]ANNAN) COVID-19 femeninas Com 10/24/20 10/24/20 10/25/20 22:15 23:44 01:41 WBC 13.0 H RBC 3.50 L Hgb 10.5 L Hct 34.1 L MCV 97.4 MCH 30.0 MCHC 30.8 L RDW 15.1 Plt Count 237 MPV 11.4 Immature Gran % (Auto) Neut % (Auto) Lymph % (Auto) [place] % (Auto) Eos % (Auto) Baso % (Auto) Lymph # (Auto) [place] # (Auto) Eos # (Auto) Baso # (Auto) Abs Immat Gran (auto) Absolute Neuts (auto) Absolute Nucleated RBC 0.000 Nucleated RBC % (auto) 0.0 PT INR APTT PTT (Heparin Protocol) Hold Blue Top Sodium 138 Potassium 3.9 Chloride 100 Carbon Dioxide 19 L Anion Gap 23 H BUN 43 H Creatinine 7.27 H* Estim Creat Clear Calc 5.9 Estimated GFR 5 POC Glucose Random Glucose 144 H Calcium 7.2 L D Troponin I High Sens 337.9 H D B-Natriuretic Peptide COVID-19 (SHANNAN) COVID-19 femeninas Com 10/25/20 10/25/20 10/25/20 02:03 04:47 06:48 WBC RBC Hgb Hct MCV MCH MCHC RDW Plt Count MPV Immature Gran % (Auto) Neut % (Auto) Lymph % (Auto) [place] % (Auto) Eos % (Auto) Baso % (Auto) Lymph # (Auto) [place] # (Auto) Eos # (Auto) Baso # (Auto) Abs Immat Gran (auto) Absolute Neuts (auto) Absolute Nucleated RBC Nucleated RBC % (auto) PT 14.9 H INR 1.3 H APTT PTT (Heparin Protocol) 38.2 L Hold Blue Top Sodium Potassium Chloride Carbon Dioxide Anion Gap BUN Creatinine Estim Creat Clear Calc Estimated GFR POC Glucose Random Glucose Calcium Troponin I High Sens 8942.3 H D B-Natriuretic Peptide COVID-19 ([facility]ANNAN) Negative COVID-19 Clin Com See Note 10/25/20 10/25/20 06:48 07:43 WBC RBC Hgb Hct MCV MCH MCHC RDW Plt Count MPV Immature Gran % (Auto) Neut % (Auto) Lymph % (Auto) [place] % (Auto) Eos % (Auto) Baso % (Auto) Lymph # (Auto) [place] # (Auto) Eos # (Auto) Baso # (Auto) Abs Immat Gran (auto) Absolute Neuts (auto) Absolute Nucleated RBC Nucleated RBC % (auto) PT INR APTT PTT (Heparin Protocol) Hold Blue Top Sodium Potassium Chloride Carbon Dioxide Anion Gap BUN Creatinine Estim Creat Clear Calc Estimated GFR POC Glucose 90 Random Glucose Calcium Troponin I High Sens B-Natriuretic Peptide 2994 H COVID-19 ([facility]ANNAN) COVID-19 Clin Com EKG shows normal sinus rhythm with marked ST depression in anterolateral leads worse than prior EKG consistent with ongoing ischemia Imaging Radiologist's impression: Impressions Chest X-Ray 10/24/20 20:34 IMPRESSION: Improved aeration of the left lung base. No acute pulmonary pathology. Assessment and Plan (1) Acute non-ST elevation myocardial infarction (NSTEMI): Status: Acute High-risk acute coronary syndrome with rising troponins and ongoing chest pain with marked ST depression persistent. Patient will be started on IV nitroglycerin drip to improve her discomfort as long as her blood pressure is reasonable. She lead urgent transfer to [facility] to at least to PCU level setting and will most likely require urgent cardiac catheterization given her borderline status. She is also due for hemodialysis today which will then be determined based on the findings of filling pressures as to be done urgently. Most likely cause of her acute coronary syndrome could be stent thrombosis and/or recurrent different disease or further worsening of her existing disease including in the RCA v/s LAD. Blood pressure is borderline low. Hold on losartan and spironolactone at this point in time. Continue metoprolol therapy. Continue high-intensity statin therapy. Continue aspirin and Plavix. Plan was discussed with her and she is agreeable for acute transfer. Plan was also discussed with the hospitalist team. Case transfer was called in to [facility]. Greater than 45 minutes was spent in managing her complex care. Thank you for allowing us to partake in the care
[2020-10-25 09:35] VITALS: BP 144/41; PULSE 65
[2020-10-25] MEDS: Nitroglycerin/D5W 100 MG/250 ML INFUS..BTL IVCONT (09:35)
[2020-10-25 09:41] LABS: PTT Heparin Drip > 200.0 SEC (53-77.9)
--- NOTE | 2020-10-25 09:49 | PC.NURSE ---
heparin stopped. thomas aware. awaiting room from [facility].
--- NOTE | 2020-10-25 09:50 | PM.DS ---
DS: Providers Provider Date of Service: 10/25/20 Date of admission: 10/25/20 04:22 Primary care physician: Unknown Physician Consults: 10/25/20 04:25 Consult to Cardiology Routine Consulting Provider: Simon Marinelli Reason for consultation: NSTEMI Has provider been notified: Yes Consult to Nephrology Routine Consulting Provider: [facility] Reason for consultation: dialysis pt Has provider been notified: No DS: Diagnosis Discharge Diagnosis (1) Acute non-ST elevation myocardial infarction (NSTEMI): Status: Acute (2) ESRD (end stage renal disease) on dialysis: Status: Acute (3) Aortic stenosis: Status: Acute (4) CHF (congestive heart failure), NYHA class I: Status: Acute (5) DMII (diabetes mellitus, type 2): Status: Acute DS: Medications Discharge Medications Home Medications: Home Medications Medication Instructions Recorded Confirmed albuterol sulfate 90 mcg/actuation 2 puff INHALATION Q4H PRN g 06/30/20 10/25/20 aerosol inhaler cholecalciferol (vitamin D3) 25 25 mcg PO DAILY 06/30/20 10/25/20 mcg (1,000 unit) capsule fenofibrate micronized 134 mg 134 mg PO DAILY 06/30/20 10/25/20 capsule fluticasone propionate 50 1 spray INTRANASAL DAILY 06/30/20 10/25/20 mcg/actuation nasal spray,suspension omeprazole 20 mg capsule,delayed 20 mg PO DAILY 06/30/20 10/25/20 release ondansetron 4 mg disintegrating 8 mg PO DIRECTED 06/30/20 10/25/20 tablet sevelamer carbonate 800 mg tablet 800 mg PO TID tab 06/30/20 10/25/20 losartan 25 mg tablet 50 mg PO DAILY tab 08/26/20 10/25/20 spironolactone 50 mg tablet 50 mg PO DAILY 08/26/20 10/25/20 Previous Rx's Medication Instructions Recorded isosorbide dinitrate 10 mg tablet 10 mg PO BID 90 Days #180 tab 05/21/20 montelukast 10 mg tablet 10 mg PO DAILY #90 tab 05/26/20 metoprolol tartrate 25 mg tablet 25 mg PO BID #60 tab 06/07/20 gabapentin 300 mg capsule 300 mg PO BID 30 Days #60 cap 06/30/20 omega-3 acid ethyl esters 1 gram 2 cap PO DAILY #180 cap 07/01/20 capsule aspirin 81 mg tablet,delayed 81 mg PO DAILY #90 tab 07/19/20 release clopidogrel 75 mg tablet 75 mg PO DAILY #90 tab 07/19/20 dulaglutide 1.5 mg/0.5 mL 1.5 mg SUBCUT QWEEK 90 Days #13 08/24/20 subcutaneous pen injector syringe famotidine 20 mg tablet 20 mg PO BEDTIME #90 tab 09/20/20 paroxetine HCl 20 mg tablet 20 mg PO QAM #90 tab 10/15/20 atorvastatin 80 mg tablet 80 mg PO DAILY #90 tab 10/18/20 heparin(porcine) in 0.45% NaCl 25,000 unit CONTINUOUS IV INFUSION 10/25/20 .Q24H #6000 ml nitroglycerin in 5 % dextrose 3 ml CONTINUOUS IV INFUSION .Q0M 10/25/20 #3000 ml DS: Summary Hospital Course Hospital Course: This is a 75-year-old female with a past medical history of aortic stenosis, CHF, CAD, ESRD on dialysis Sunday, prior NSTEMI, hyperlipidemia who presented to the hospital complaints of shortness of breath and chest pain which began on the evening prior to arrival. She was noted have some EKG changes and a high sensitivity troponin which was a 337. She was started on IV heparin drip, was already on aspirin and Plavix, metoprolol and statin. Her pain did improve after admission but reoccurred. Her 2nd high sensitivity troponin returned positive at greater than 8000. Her EKG revealed ST depressions in the anterior lateral leads which was worse compared to her admission EKG. She was evaluated by Cardiology the morning after admission and decision was made to transfer the patient to [facility] for further cardiac care. She will be transferred on IV heparin and IV nitro drip. Time Spent with Patient Time attestation: Total time spent providing and/or coordinating discharge services: Discharge coordination time: Greater than 30 minutes Physical Exam Vital Signs: Vital Signs: Last Vital Signs Temp 98.6 F 10/25/20 00:19 Pulse 65 10/25/20 09:35 Resp 20 10/25/20 04:25 BP 144/41 H 10/25/20 09:35 Pulse Ox 98 10/25/20 04:25 Body Mass Index 26.0 Const: Other: General - no acute distress, appears comfortable Cardiovascular - regular rate and rhythm, S1-S2 Lungs - normal respiratory effort, clear to auscultation bilaterally, no wheezing Abdomen - soft, nontender, no rebound or guarding Extremities - no edema bilaterally Neuro - awake and alert, no focal deficits DS: Data Data Completed and Pending Labs on day of discharge: Laboratory Results - last 24 hr 10/24/20 10/24/20 10/24/20 20:38 20:38 20:38 WBC 12.2 H RBC 3.72 L Hgb 11.2 L Hct 36.6 L MCV 98.4 H MCH 30.1 MCHC 30.6 L RDW 15.2 Plt Count 260 MPV 11.6 Immature Gran % (Auto) 0.3 Neut % (Auto) 52.3 Lymph % (Auto) 33.9 Sharkey % (Auto) 9.4 Eos % (Auto) 3.9 Baso % (Auto) 0.2 Lymph # (Auto) 4.1 Sharkey # (Auto) 1.2 Eos # (Auto) 0.5 H Baso # (Auto) 0.0 Abs Immat Gran (auto) 0.04 H Absolute Neuts (auto) 6.4 Absolute Nucleated RBC 0.000 Nucleated RBC % (auto) 0.0 PT Cancelled INR Cancelled APTT Cancelled PTT (Heparin Protocol) Hold Blue Top SEE NOTE Sodium Potassium Chloride Carbon Dioxide Anion Gap BUN Creatinine Estim Creat Clear Calc Estimated GFR POC Glucose Random Glucose Calcium Troponin I High Sens 128.1 H B-Natriuretic Peptide COVID-19 ([facility]ANNA[facility]) COVID-19 Clin Com 10/24/20 10/24/20 10/25/20 22:15 23:44 01:41 WBC 13.0 H RBC 3.50 L Hgb 10.5 L Hct 34.1 L MCV 97.4 MCH 30.0 MCHC 30.8 L RDW 15.1 Plt Count 237 MPV 11.4 Immature Gran % (Auto) Neut % (Auto) Lymph % (Auto) Sharkey % (Auto) Eos % (Auto) Baso % (Auto) Lymph # (Auto) Sharkey # (Auto) Eos # (Auto) Baso # (Auto) Abs Immat Gran (auto) Absolute Neuts (auto) Absolute Nucleated RBC 0.000 Nucleated RBC % (auto) 0.0 PT INR APTT PTT (Heparin Protocol) Hold Blue Top Sodium 138 Potassium 3.9 Chloride 100 Carbon Dioxide 19 L Anion Gap 23 H BUN 43 H Creatinine 7.27 H* Estim Creat Clear Calc 5.9 Estimated GFR 5 POC Glucose Random Glucose 144 H Calcium 7.2 L D Troponin I High Sens 337.9 H D B-Natriuretic Peptide COVID-19 ([facility]ANNA[facility]) COVID-19 Triond 10/25/20 10/25/20 10/25/20 02:03 04:47 06:48 WBC RBC Hgb Hct MCV MCH MCHC RDW Plt Count MPV Immature Gran % (Auto) Neut % (Auto) Lymph % (Auto) Sharkey % (Auto) Eos % (Auto) Baso % (Auto) Lymph # (Auto) Sharkey # (Auto) Eos # (Auto) Baso # (Auto) Abs Immat Gran (auto) Absolute Neuts (auto) Absolute Nucleated RBC Nucleated RBC % (auto) PT 14.9 H INR 1.3 H APTT PTT (Heparin Protocol) 38.2 L Hold Blue Top Sodium Potassium Chloride Carbon Dioxide Anion Gap BUN Creatinine Estim Creat Clear Calc Estimated GFR POC Glucose Random Glucose Calcium Troponin I High Sens 8942.3 H D B-Natriuretic Peptide COVID-19 ([facility]NA[facility]) Negative COVID-[employer] See Note 10/25/20 10/25/20 10/25/20 06:48 07:43 09:09 WBC RBC Hgb Hct MCV MCH MCHC RDW Plt Count MPV Immature Gran % (Auto) Neut % (Auto) Lymph % (Auto) Sharkey % (Auto) Eos % (Auto) Baso % (Auto) Lymph # (Auto) Sharkey # (Auto) Eos # (Auto) Baso # (Auto) Abs Immat Gran (auto) Absolute Neuts (auto) Absolute Nucleated RBC Nucleated RBC % (auto) PT INR APTT PTT (Heparin Protocol) > 200.0 H* D Hold Blue Top Sodium Potassium Chloride Carbon Dioxide Anion Gap BUN Creatinine Estim Creat Clear Calc Estimated GFR POC Glucose 90 Random Glucose Calcium Troponin I High Sens B-Natriuretic Peptide 2994 H COVID-19 ([facility]ANNAN) COVID-19 [employer] Com Discharge Plan Discharge Patient Disposition: Xfer Acute Care Hospital Discharge Diagnosis: NSTEMI Referrals: Physician,Unknown [Primary Care Provider] - 1 Week Discharge Medications: New heparin(porcine) in 0.45% NaCl 25,000 unit/250 mL Parenteral Solution 25,000 unit continuous IV infusion .Q24H Qty: 6000 RF: 0 nitroglycerin in 5 % dextrose 100 mg/250 mL (400 mcg/mL) Solution 3 ml continuous IV infusion .Q0M Qty: 3000 RF: 0 Continued montelukast 10 mg tablet 10 mg PO DAILY Qty: 90 RF: 3 metoprolol tartrate 25 mg tablet 25 mg PO BID Qty: 60 RF: 1 omega-3 acid ethyl esters 1 gram capsule 2 cap PO DAILY Qty: 180 RF: 3 dulaglutide [Trulicity] 1.5 mg/0.5 mL pen injector 1.5 mg subcut QWEEK 90 Days Qty: 13 RF: 2 famotidine 20 mg tablet 20 mg PO BEDTIME Qty: 90 RF: 2 paroxetine HCl 20 mg tablet 20 mg PO QAM Qty: 90 RF: 2 atorvastatin 80 mg tablet 80 mg PO DAILY Qty: 90 RF: 3 ondansetron 4 mg tablet,disintegrating 8 mg PO DIRECTED RF: 0 fenofibrate micronized 134 mg capsule 134 mg PO DAILY RF: 0 omeprazole 20 mg capsule,delayed release(DR/EC) 20 mg PO DAILY RF: 0 albuterol sulfate [ProAir HFA] 90 mcg/actuation HFA aerosol inhaler 2 puff inhalation Q4H PRN (Reason: Shortness Of Breath Or Wheezing) RF: 0 fluticasone propionate 50 mcg/actuation spray,suspension 1 spray intranasal DAILY RF: 0 cholecalciferol (vitamin D3) 25 mcg (1,000 unit) capsule 25 mcg PO DAILY RF: 0 sevelamer carbonate 800 mg tablet 800 mg PO TID RF: 0 gabapentin 300 mg capsule 300 mg PO BID 30 Days Qty: 60 RF: 1 aspirin 81 mg tablet,delayed release (DR/EC) 81 mg PO DAILY Qty: 90 RF: 1 clopidogrel [Plavix] 75 mg tablet 75 mg PO DAILY Qty: 90 RF: 1 Held isosorbide dinitrate 10 mg tablet 10 mg PO BID 90 Days Qty: 180 RF: 0 Hold Instructions: Resume on 11/01/20. Resume per [facility] doctors spironolactone 50 mg tablet 50 mg PO DAILY RF: 0 Hold Instructions: Resume on 11/01/20. Resume per [facility] doctors losartan 25 mg tablet 50 mg PO DAILY RF: 0 Hold Instructions: Resume on 11/01/20. Resume per [facility] doctors Discharge Orders: Discharge Order (Routine); Ordered 10/25/20 Ordered By: Jerome Billings Diet: other Activity on Discharge: As tolerated Stand Alone Forms: Patient Portal Discharge page Care Plan Goals: To stay healthy and out of the hospital. Health Concerns: NSTEMi Plan of Treatment: You are being transferred to [facility] for further care Assessment: 75 yo F admitted for NSTEMI. Evaluated by cardiology and transferred to [facility] for further care.
--- NOTE | 2020-10-25 09:58 | MHC.CM.PN ---
Patient will be transferred to [facility] for higher level of care related to NSTEMI. Patient has not been seen by case management.
[2020-10-25 10:34] LABS: PTT Heparin Drip 76.7 SEC (53-77.9)
--- NOTE | 2020-10-25 11:03 | PC.NURSE ---
ATTEMPT TO GIVE REPORT TO [place] [id number] RM 6, NO ANSWER. WILL TRY AGAIN [phone]
== END 2020-10-25 12:00 | disposition short-term general hospital (02) | DRG 280 ==
LOC: HO.ED 10-25 01:48 → HO.EDOVER 10-25 04:44
PROVIDERS: Admitting Provider Internal Medicine; Emergency Provider Emergency Medicine Emergency Medical Services; Visit Provider Family Medicine
DX: I13.2 Hypertensive heart and chronic kidney disease with heart failure and with stage 5 chronic kidney disease, or end stage renal disease (principal); I21.4 Non-ST elevation (NSTEMI) myocardial infarction; N18.6 End stage renal disease; E11.22 Type 2 diabetes mellitus with diabetic chronic kidney disease; Z20.822 Contact with and (suspected) exposure to COVID-19; E78.5 Hyperlipidemia, unspecified; I50.9 Heart failure, unspecified; Z99.2 Dependence on renal dialysis; Z87.891 Personal history of nicotine dependence; Z88.0 Allergy status to penicillin; Z79.02 Long term (current) use of antithrombotics/antiplatelets; Z79.52 Long term (current) use of systemic steroids; Z79.899 Other long term (current) drug therapy
CPT/HCPCS: 36415; 71045; 80048; 82947; 83880; 84484; 85025; 85027; 85610; 85730; 87635; 93005; 93306; 96374; 96375; 99285; J2270; J2405

== ENCOUNTER 2020-11-16 08:28 | Outpatient (REF) | payer MEDICARE, SELFPAY ==
[2020-11-16 08:44] LABS: Hematocrit 30.5 % (37-47); Hemoglobin 9.6 g/dl (12.0-16.0); Mean Corpuscular HGB Conc 31.5 g/dl (31.0-35.0); Mean Corpuscular Hemoglobin 30.5 pg (27.0-33.0); Mean Corpuscular Volume 96.8 fL (80-98); Mean Platelet Volume 11.8 fL (9.4-12.3); Platelet Count 189 X10*3/uL (160-400); Red Blood Count 3.15 X10*6/uL (4.20-5.50); Red Cell Distribution Width 17.2 % (11.0-16.0)
[2020-11-16 09:16] LABS: Alanine Aminotransferase 17 U/L (0-31); Albumin Level 2.6 g/dL (3.5-5.0); Alkaline Phosphatase 108 U/L (39-117); Anion Gap 11 (12-20); Aspartate Amino Transferase 27 U/L (5-31); Bilirubin Total 0.9 mg/dL (0.0-1.0); Blood Urea Nitrogen 12 mg/dL (9-16); Calcium 7.6 mg/dL (8.4-10.2); Carbon Dioxide 29 mmol/L (22-29); Chloride 101 mmol/L (96-108); Estimated Glomerular Filt Rate 9; Glucose Random 98 mg/dL (60-115); Potassium 3.3 mmol/L (3.3-5.1); Sodium 138 mmol/L (135-145); Total Protein 5.1 g/dL (6.5-8.0)
== END 2020-11-16 08:29 | disposition home or self-care (01) ==
LOC: HO.MMNH1L 08:28
PROVIDERS: Visit Provider Family Medicine
DX: N18.6 End stage renal disease (principal); I35.0 Nonrheumatic aortic (valve) stenosis; E78.5 Hyperlipidemia, unspecified; I25.708 Atherosclerosis of coronary artery bypass graft(s), unspecified, with other forms of angina pectoris
CPT/HCPCS: 36415; 80053; 85027

== ENCOUNTER 2020-11-22 01:10 | Outpatient (REF) | payer MEDICARE, SELFPAY ==
[2020-11-22 06:56] LABS: Hematocrit 33.7 % (37-47); Hemoglobin 10.5 g/dl (12.0-16.0); Mean Corpuscular HGB Conc 31.2 g/dl (31.0-35.0); Mean Corpuscular Volume 99.4 fL (80-98); Mean Platelet Volume 11.4 fL (9.4-12.3); Platelet Count 217 X10*3/uL (160-400); Red Blood Count 3.39 X10*6/uL (4.20-5.50); Red Cell Distribution Width 17.6 % (11.0-16.0); White Blood Count 9.7 X10*3/uL (4.8-10.8)
[2020-11-22 07:57] LABS: Anion Gap 15 (12-20); Blood Urea Nitrogen 26 mg/dL (9-16); Calcium 8.1 mg/dL (8.4-10.2); Carbon Dioxide 22 mmol/L (22-29); Chloride 100 mmol/L (96-108); Estimated Glomerular Filt Rate 5; Glucose Random 89 mg/dL (60-115); Sodium 132 mmol/L (135-145)
== END 2020-11-22 01:11 | disposition home or self-care (01) ==
LOC: HO.MMNH1L 01:10
PROVIDERS: Visit Provider Family Medicine
DX: N18.6 End stage renal disease (principal)
CPT/HCPCS: 36415; 80048; 85027

== ENCOUNTER 2020-11-30 00:32 | Outpatient (REF) | payer MEDICARE, SELFPAY ==
[2020-11-30 07:58] LABS: Hematocrit 32.4 % (37-47); Hemoglobin 10.4 g/dl (12.0-16.0); Mean Corpuscular HGB Conc 32.1 g/dl (31.0-35.0); Mean Corpuscular Hemoglobin 31.7 pg (27.0-33.0); Mean Corpuscular Volume 98.8 fL (80-98); Mean Platelet Volume 10.9 fL (9.4-12.3); Platelet Count 252 X10*3/uL (160-400); Red Blood Count 3.28 X10*6/uL (4.20-5.50); Red Cell Distribution Width 17.6 % (11.0-16.0); White Blood Count 9.6 X10*3/uL (4.8-10.8)
[2020-11-30 08:23] LABS: Anion Gap 17 (12-20); Blood Urea Nitrogen 18 mg/dL (9-16); Calcium 8.2 mg/dL (8.4-10.2); Carbon Dioxide 22 mmol/L (22-29); Chloride 99 mmol/L (96-108); Estimated Glomerular Filt Rate 9; Glucose Random 85 mg/dL (60-115); Potassium 4.8 mmol/L (3.3-5.1); Sodium 133 mmol/L (135-145)
== END 2020-11-30 00:33 | disposition home or self-care (01) ==
LOC: HO.MMNH1L 00:32
PROVIDERS: Visit Provider Family Medicine
DX: N18.6 End stage renal disease (principal)
CPT/HCPCS: 36415; 80048; 85027

== ENCOUNTER 2020-12-06 00:56 | Outpatient (REF) | payer MEDICARE, SELFPAY ==
[2020-12-06 07:48] LABS: Hematocrit 32.8 % (37-47); Hemoglobin 10.3 g/dl (12.0-16.0); Mean Corpuscular HGB Conc 31.4 g/dl (31.0-35.0); Mean Corpuscular Hemoglobin 31.8 pg (27.0-33.0); Mean Corpuscular Volume 101.2 fL (80-98); Mean Platelet Volume 11.8 fL (9.4-12.3); Platelet Count 223 X10*3/uL (160-400); Red Blood Count 3.24 X10*6/uL (4.20-5.50); Red Cell Distribution Width 16.8 % (11.0-16.0); White Blood Count 11.4 X10*3/uL (4.8-10.8)
[2020-12-06 08:18] LABS: Anion Gap 15 (12-20); Blood Urea Nitrogen 44 mg/dL (9-16); Calcium 8.4 mg/dL (8.4-10.2); Carbon Dioxide 24 mmol/L (22-29); Chloride 97 mmol/L (96-108); Glucose Random 93 mg/dL (60-115); Sodium 131 mmol/L (135-145)
[2020-12-06 08:55] LABS: Estimated Glomerular Filt Rate 5
== END 2020-12-06 00:57 | disposition home or self-care (01) ==
LOC: HO.MMNH1L 00:56
PROVIDERS: Visit Provider Family Medicine
DX: N18.6 End stage renal disease (principal)
CPT/HCPCS: 36415; 80048; 85027

== ENCOUNTER 2020-12-13 00:35 | Outpatient (REF) | payer MEDICARE, SELFPAY ==
[2020-12-13 07:01] LABS: Hematocrit 30.2 % (37-47); Hemoglobin 9.6 g/dl (12.0-16.0); Mean Corpuscular HGB Conc 31.8 g/dl (31.0-35.0); Mean Corpuscular Volume 100.7 fL (80-98); Mean Platelet Volume 11.9 fL (9.4-12.3); Platelet Count 210 X10*3/uL (160-400); Red Cell Distribution Width 16.7 % (11.0-16.0); White Blood Count 9.6 X10*3/uL (4.8-10.8)
[2020-12-13 08:41] LABS: Anion Gap 18 (12-20); Blood Urea Nitrogen 52 mg/dL (9-16); Calcium 8.5 mg/dL (8.4-10.2); Carbon Dioxide 20 mmol/L (22-29); Chloride 102 mmol/L (96-108); Estimated Glomerular Filt Rate 5; Glucose Random 96 mg/dL (60-115); Potassium 4.8 mmol/L (3.3-5.1); Sodium 135 mmol/L (135-145)
== END 2020-12-13 00:36 | disposition home or self-care (01) ==
LOC: HO.MMNH1L 00:35
PROVIDERS: Visit Provider Family Medicine
DX: N18.6 End stage renal disease (principal)
CPT/HCPCS: 36415; 80048; 85027

== ENCOUNTER 2020-12-20 07:11 | Outpatient (REF) | payer MEDICARE, SELFPAY ==
[2020-12-20 07:10] LABS: Hematocrit 28.7 % (37-47); Hemoglobin 9.3 g/dl (12.0-16.0); Mean Corpuscular HGB Conc 32.4 g/dl (31.0-35.0); Mean Corpuscular Hemoglobin 32.2 pg (27.0-33.0); Mean Corpuscular Volume 99.3 fL (80-98); Mean Platelet Volume 11.8 fL (9.4-12.3); Platelet Count 219 X10*3/uL (160-400); Red Blood Count 2.89 X10*6/uL (4.20-5.50); Red Cell Distribution Width 16.1 % (11.0-16.0); White Blood Count 11.3 X10*3/uL (4.8-10.8)
[2020-12-20 08:00] LABS: Anion Gap 17 (12-20); Blood Urea Nitrogen 67 mg/dL (9-16); Calcium 8.6 mg/dL (8.4-10.2); Carbon Dioxide 20 mmol/L (22-29); Chloride 97 mmol/L (96-108); Estimated Glomerular Filt Rate 4; Glucose Random 93 mg/dL (60-115); Potassium 5.8 mmol/L (3.3-5.1); Sodium 128 mmol/L (135-145)
== END 2020-12-20 07:12 | disposition home or self-care (01) ==
LOC: HO.MMNH1L 07:11
PROVIDERS: Visit Provider Family Medicine
DX: N18.6 End stage renal disease (principal)
CPT/HCPCS: 36415; 80048; 85027

== ENCOUNTER 2020-12-21 06:40 | Emergency (ER) | payer MEDICARE, SELFPAY ==
[2020-12-21 07:00] VITALS: BP 120/48; PULSE 67; O2SAT 95
[2020-12-21 07:01] VITALS: BP 131/27; PULSE 66; RESP 18; TEMP 36.6; O2SAT 97; BMI 25.8
[2020-12-21 08:47] VITALS: BP 139/35; PULSE 61; RESP 15; TEMP 36.6; O2SAT 99
--- NOTE | 2020-12-21 09:32 | ED_ITS ---
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 She had HD yesterday with no acute events or major bleeding. On EMS arrival a pressure dressing was applied and she was brought to the ER for further sim luation. No bleeding through the dressing. She has no chest pain, lightheadedness or dizziness. She is not on anticoagulation. MD complaint: bleeding fistula Onset (ago): day(s) Location: left and upper extremity Radiation: non-radiation Severity: mild Relieving factors: none Exacerbating factors: none Associated symptoms: denies other symptoms Treatments prior to arrival: other (bandage) Related Data Home Medications Medication Instructions Recorded Confirmed albuterol sulfate 90 mcg/actuation 2 puff INHALATION Q4H PRN g 06/30/20 10/25/20 aerosol inhaler cholecalciferol (vitamin D3) 25 25 mcg PO DAILY 06/30/20 10/25/20 mcg (1,000 unit) capsule fenofibrate micronized 134 mg 134 mg PO DAILY 06/30/20 10/25/20 capsule fluticasone propionate 50 1 spray INTRANASAL DAILY 06/30/20 10/25/20 mcg/actuation nasal spray,suspension omeprazole 20 mg capsule,delayed 20 mg PO DAILY 06/30/20 10/25/20 release ondansetron 4 mg disintegrating 8 mg PO DIRECTED 06/30/20 10/25/20 tablet sevelamer carbonate 800 mg tablet 800 mg PO TID tab 06/30/20 10/25/20 losartan 25 mg tablet 50 mg PO DAILY tab 08/26/20 10/25/20 spironolactone 50 mg tablet 50 mg PO DAILY 08/26/20 10/25/20 Previous Rx's Medication Instructions Recorded isosorbide dinitrate 10 mg tablet 10 mg PO BID 90 Days #180 tab 05/21/20 montelukast 10 mg tablet 10 mg PO DAILY #90 tab 05/26/20 metoprolol tartrate 25 mg tablet 25 mg PO BID #60 tab 06/07/20 gabapentin 300 mg capsule 300 mg PO BID 30 Days #60 cap 06/30/20 omega-3 acid ethyl esters 1 gram 2 cap PO DAILY #180 cap 07/01/20 capsule aspirin 81 mg tablet,delayed 81 mg PO DAILY #90 tab 07/19/20 release clopidogrel 75 mg tablet 75 mg PO DAILY #90 tab 07/19/20 dulaglutide 1.5 mg/0.5 mL 1.5 mg SUBCUT QWEEK 90 Days #13 08/24/20 subcutaneous pen injector syringe famotidine 20 mg tablet 20 mg PO BEDTIME #90 tab 09/20/20 paroxetine HCl 20 mg tablet 20 mg PO QAM #90 tab 10/15/20 atorvastatin 80 mg tablet 80 mg PO DAILY #90 tab 10/18/20 heparin(porcine) in 0.45% NaCl 25,000 unit CONTINUOUS IV INFUSION 10/25/20 .Q24H #6000 ml nitroglycerin in 5 % dextrose 3 ml CONTINUOUS IV INFUSION .Q0M 10/25/20 #3000 ml Allergies Allergy/AdvReac Type Severity Reaction Status Date / Time Penicillins Allergy Mild RASH Verified 10/24/20 20:11 penicillin V Allergy Unknown rash of Verified 10/24/20 20:11 skin Review of Systems Review of Systems: Constitutional: No Fever, No Chills Cardiovascular: No Chest Pain, No SOB Respiratory: No Cough, No Sputum Gastrointestinal: No Nausea, No Vomiting Musculoskeletal: No joint pain, No Myalgias Skin: + Skin Lesions, No rash Neuro: No Weakness, No Numbness, No Dizziness, No Headache Psych: No Anxiety/Panic, No Depression Heme/Lymph: No Bruising PMFSH Past Medical History Attestation statement: The following information was validated with the patient. Medical History Anemia Aortic stenosis CHF (congestive heart failure), NYHA class I Coronary artery disease CRF (chronic renal failure) ESRD (end stage renal disease) on dialysis H/O non-ST elevation myocardial infarction (NSTEMI) Hyperlipidemia Surgical History (Updated 11/21/20 @ 11:19 by Mesha Rogel MD) H/O abdominal hysterectomy H/O right hemicolectomy History of angioplasty History of biopsy History of cataract surgery History of surgery Family History Family History Father No problems noted. Mother Bladder cancer Maternal Aunt Colon cancer Paternal Aunt Colon cancer Social History Social History Alcohol intake: never Advance Directives: Yes Advance Directives Information Provided: Yes Advance Directives on File: No Physical Exam Vital Signs: Vital Signs: Last Vital Signs Temp 97.9 F 12/21/20 08:47 Pulse 61 12/21/20 08:47 Resp 15 12/21/20 08:47 BP 139/35 L 12/21/20 08:47 Pulse Ox 99 12/21/20 08:47 Body Mass Index 25.8 Appearance: Alert. Oriented X3. No acute distress. HEENT: normal inspection CVS: Normal heart rate and rhythm. Pulses normal. Respiratory: No respiratory distress. Skin: Skin warm and dry. Normal skin color. Normal skin turgor. No rashes. Extremities: left upper extremity with punctate lesion over upper arm fistula with scant ooze, no arterial bleeding present. no ecchymosis, +thrill. bleeding controlled. NV intact distally. Neuro: Oriented X 3. No motor deficit. No sensory deficit. Course Course Course Narrative: 75 y/o female presenting with mild intermittent bleeding from LUE fistula for the last 5 days. No active bleeding on arrival, EMS had placed a pressure dressing with improvement. On baby ASA but no systemic anticoagulation. Dressing taken down and reapplied with good effect. She was monitored in the ER for 2+ with no hemorrhaging. She is stable for discharge back to SNF where she is getting rehab after her recent ileostomy. Discharge Plan Discharge Clinical Impression: Hemorrhage of arteriovenous fistula Qualifiers: Encounter type: initial encounter Qualified Code(s): T82.838A - Hemorrhage due to vascular prosthetic devices, implants and grafts, initial encounter Patient Disposition: Xfer SNF Transfer Details: [facility] Galdamez Additional Instructions: Bleeding was controlled with a pressure dressing. If bleeding recurs recommend direct pressure for 20 minutes and application of a pressure dressing. Follow up with your doctor as needed. If you have recurrent severe bleeding call 911 or come back to the ER for further evaluation. Prescriptions: No Action isosorbide dinitrate 10 mg tablet 10 mg PO BID 90 Days Qty: 180 RF: 0 Hold Instructions: Resume on 05/03/21. Resume per [facility] [place] [place] doctors montelukast 10 mg tablet 10 mg PO DAILY Qty: 90 RF: 3 metoprolol tartrate 25 mg tablet 25 mg PO BID Qty: 60 RF: 1 omega-3 acid ethyl esters 1 gram capsule 2 cap PO DAILY Qty: 180 RF: 3 dulaglutide [Trulicity] 1.5 mg/0.5 mL pen injector 1.5 mg subcut QWEEK 90 Days Qty: 13 RF: 2 famotidine 20 mg tablet 20 mg PO BEDTIME Qty: 90 RF: 2 paroxetine HCl 20 mg tablet 20 mg PO QAM Qty: 90 RF: 2 atorvastatin 80 mg tablet 80 mg PO DAILY Qty: 90 RF: 3 heparin(porcine) in 0.45% NaCl 25,000 unit/250 mL Parenteral Solution 25,000 unit continuous IV infusion .Q24H Qty: 6000 RF: 0 nitroglycerin in 5 % dextrose 100 mg/250 mL (400 mcg/mL) Solution 3 ml continuous IV infusion .Q0M Qty: 3000 RF: 0 spironolactone 50 mg tablet 50 mg PO DAILY RF: 0 Hold Instructions: Resume on 11/01/20. Resume per [facility] [place] [place] doctors losartan 25 mg tablet 50 mg PO DAILY RF: 0 Hold Instructions: Resume on 11/01/20. Resume per [facility] [place] [place] doctors ondansetron 4 mg tablet,disintegrating 8 mg PO DIRECTED RF: 0 fenofibrate micronized 134 mg capsule 134 mg PO DAILY RF: 0 omeprazole 20 mg capsule,delayed release(DR/EC) 20 mg PO DAILY RF: 0 albuterol sulfate [ProAir HFA] 90 mcg/actuation HFA aerosol inhaler 2 puff inhalation Q4H PRN (Reason: Shortness Of Breath Or Wheezing) RF: 0 fluticasone propionate 50 mcg/actuation spray,suspension 1 spray intranasal DAILY RF: 0 cholecalciferol (vitamin D3) 25 mcg (1,000 unit) capsule 25 mcg PO DAILY RF: 0 sevelamer carbonate 800 mg tablet 800 mg PO TID RF: 0 gabapentin 300 mg capsule 300 mg PO BID 30 Days Qty: 60 RF: 1 aspirin 81 mg tablet,delayed release (DR/EC) 81 mg PO DAILY Qty: 90 RF: 1 clopidogrel [Plavix] 75 mg tablet 75 mg PO DAILY Qty: 90 RF: 1 Interventions: ED Discharge Assessment Last Done: 12/21/20 09:55 Discharge Date/Time: 12/21/20 09:55
--- NOTE | 2020-12-21 10:01 | PC.NURSE ---
awaiting ambulance, nad, no bleeding since arrival, dsg removed and replaced
--- NOTE | 2020-12-21 11:26 | PC.NURSE ---
MNessage left at facility for primary RN w/ call back info if needed. Awaiting transport
== END 2020-12-21 11:49 | disposition skilled nursing facility (03) ==
PROVIDERS: Emergency Provider Emergency Medicine Emergency Medical Services; PCP Internal Medicine
DX: T82.838A Hemorrhage due to vascular prosthetic devices, implants and grafts, initial encounter (principal); E11.22 Type 2 diabetes mellitus with diabetic chronic kidney disease; N18.6 End stage renal disease; Y83.8 Other surgical procedures as the cause of abnormal reaction of the patient, or of later complication, without mention of misadventure at the time of the procedure; Y92.9 Unspecified place or not applicable; Z79.82 Long term (current) use of aspirin; I25.2 Old myocardial infarction; Z99.2 Dependence on renal dialysis
CPT/HCPCS: 99283; 99285

== ENCOUNTER 2020-12-27 00:36 | Outpatient (REF) | payer MEDICARE, SELFPAY ==
[2020-12-27 06:09] LABS: Hematocrit 29.7 % (37-47); Hemoglobin 9.6 g/dl (12.0-16.0); Mean Corpuscular HGB Conc 32.3 g/dl (31.0-35.0); Mean Corpuscular Hemoglobin 32.8 pg (27.0-33.0); Mean Corpuscular Volume 101.4 fL (80-98); Mean Platelet Volume 11.3 fL (9.4-12.3); Platelet Count 273 X10*3/uL (160-400); Red Blood Count 2.93 X10*6/uL (4.20-5.50); Red Cell Distribution Width 15.9 % (11.0-16.0); White Blood Count 10.6 X10*3/uL (4.8-10.8)
[2020-12-27 06:46] LABS: Anion Gap 16 (12-20); Blood Urea Nitrogen 57 mg/dL (9-16); Calcium 8.2 mg/dL (8.4-10.2); Carbon Dioxide 19 mmol/L (22-29); Chloride 100 mmol/L (96-108); Glucose Random 89 mg/dL (60-115); Sodium 129 mmol/L (135-145)
[2020-12-27 07:00] LABS: Estimated Glomerular Filt Rate 4
== END 2020-12-27 00:37 | disposition home or self-care (01) ==
LOC: HO.MMNH1L 00:36
PROVIDERS: Visit Provider Family Medicine
DX: N18.6 End stage renal disease (principal)
CPT/HCPCS: 36415; 80048; 85027

== ENCOUNTER 2021-01-03 00:16 | Outpatient (REF) | payer MEDICARE, SELFPAY ==
[2021-01-03 07:04] LABS: Hemoglobin 10.8 g/dl (12.0-16.0); Mean Corpuscular HGB Conc 31.8 g/dl (31.0-35.0); Mean Corpuscular Hemoglobin 33.6 pg (27.0-33.0); Mean Corpuscular Volume 105.9 fL (80-98); Mean Platelet Volume 11.2 fL (9.4-12.3); NRBC Pct Auto 0.2 /100WBC (0.0-0.2); Platelet Count 261 X10*3/uL (160-400); Red Blood Count 3.21 X10*6/uL (4.20-5.50); Red Cell Distribution Width 18.9 % (11.0-16.0); White Blood Count 12.8 X10*3/uL (4.8-10.8)
[2021-01-03 07:36] LABS: Anion Gap 22 (12-20); Blood Urea Nitrogen 52 mg/dL (9-16); Calcium 8.5 mg/dL (8.4-10.2); Carbon Dioxide 17 mmol/L (22-29); Chloride 96 mmol/L (96-108); Estimated Glomerular Filt Rate 4; Glucose Random 102 mg/dL (60-115); Potassium 5.9 mmol/L (3.3-5.1); Sodium 129 mmol/L (135-145)
== END 2021-01-03 00:17 | disposition home or self-care (01) ==
LOC: HO.MMNH1L 00:16
PROVIDERS: Visit Provider Family Medicine
DX: N18.6 End stage renal disease (principal)
CPT/HCPCS: 36415; 80048; 85027

== ENCOUNTER 2021-01-10 | Outpatient (REF) | payer MEDICARE, SELFPAY ==
[2021-01-10 07:30] LABS: Hematocrit 38.7 % (37-47); Hemoglobin 12.1 g/dl (12.0-16.0); Mean Corpuscular HGB Conc 31.3 g/dl (31.0-35.0); Mean Corpuscular Hemoglobin 32.6 pg (27.0-33.0); Mean Corpuscular Volume 104.3 fL (80-98); Mean Platelet Volume 11.4 fL (9.4-12.3); Platelet Count 270 X10*3/uL (160-400); Red Blood Count 3.71 X10*6/uL (4.20-5.50); Red Cell Distribution Width 16.5 % (11.0-16.0)
[2021-01-10 08:24] LABS: Anion Gap 22 (12-20); Blood Urea Nitrogen 55 mg/dL (9-16); Calcium 8.5 mg/dL (8.4-10.2); Carbon Dioxide 15 mmol/L (22-29); Chloride 95 mmol/L (96-108); Estimated Glomerular Filt Rate 5; Glucose Random 85 mg/dL (60-115); Potassium 5.6 mmol/L (3.3-5.1); Sodium 126 mmol/L (135-145)
== END 2021-01-10 00:01 | disposition home or self-care (01) ==
LOC: HO.MMNH1L
PROVIDERS: Visit Provider Family Medicine
DX: N18.6 End stage renal disease (principal)
CPT/HCPCS: 36415; 80048; 85027

== ENCOUNTER 2021-01-14 05:54 | Outpatient (REF) | payer MEDICARE, SELFPAY ==
[2021-01-14 06:07] LABS: Hematocrit 34.3 % (37-47); Mean Corpuscular HGB Conc 32.1 g/dl (31.0-35.0); Mean Corpuscular Hemoglobin 33.4 pg (27.0-33.0); Mean Corpuscular Volume 104.3 fL (80-98); Mean Platelet Volume 10.7 fL (9.4-12.3); Platelet Count 272 X10*3/uL (160-400); Red Blood Count 3.29 X10*6/uL (4.20-5.50); Red Cell Distribution Width 16.5 % (11.0-16.0); White Blood Count 10.7 X10*3/uL (4.8-10.8)
[2021-01-14 06:32] LABS: Anion Gap 17 (12-20); Blood Urea Nitrogen 41 mg/dL (9-16); Calcium 8.3 mg/dL (8.4-10.2); Carbon Dioxide 22 mmol/L (22-29); Chloride 99 mmol/L (96-108); Glucose Random 95 mg/dL (60-115); Potassium 4.9 mmol/L (3.3-5.1); Sodium 133 mmol/L (135-145)
[2021-01-14 06:34] LABS: Estimated Glomerular Filt Rate 5
== END 2021-01-14 05:55 | disposition home or self-care (01) ==
LOC: HO.MMNH1L 05:54
PROVIDERS: Visit Provider Family Medicine
DX: R26.2 Difficulty in walking, not elsewhere classified (principal); N18.6 End stage renal disease; Z99.2 Dependence on renal dialysis
CPT/HCPCS: 36415; 80048; 85027

== ENCOUNTER 2021-01-17 00:52 | Outpatient (REF) | payer MEDICARE, SELFPAY ==
[2021-01-17 06:10] LABS: Hematocrit 35.9 % (37-47); Hemoglobin 11.2 g/dl (12.0-16.0); Mean Corpuscular HGB Conc 31.2 g/dl (31.0-35.0); Mean Corpuscular Hemoglobin 32.7 pg (27.0-33.0); Mean Corpuscular Volume 104.7 fL (80-98); Mean Platelet Volume 11.2 fL (9.4-12.3); Platelet Count 292 X10*3/uL (160-400); Red Blood Count 3.43 X10*6/uL (4.20-5.50); Red Cell Distribution Width 15.9 % (11.0-16.0); White Blood Count 12.2 X10*3/uL (4.8-10.8)
[2021-01-17 06:37] LABS: Anion Gap 21 (12-20); Blood Urea Nitrogen 73 mg/dL (9-16); Calcium 8.9 mg/dL (8.4-10.2); Carbon Dioxide 21 mmol/L (22-29); Chloride 100 mmol/L (96-108); Estimated Glomerular Filt Rate 4; Glucose Random 111 mg/dL (60-115); Potassium 5.5 mmol/L (3.3-5.1); Sodium 136 mmol/L (135-145)
== END 2021-01-17 00:53 | disposition home or self-care (01) ==
LOC: HO.MMNH1L 00:52
PROVIDERS: Visit Provider Family Medicine
DX: N18.6 End stage renal disease (principal)
CPT/HCPCS: 36415; 80048; 85027

== ENCOUNTER 2021-01-19 12:04 | Inpatient (IN) | payer MEDICARE, SELFPAY ==
[2021-01-19] VITALS (7 sets, daily range): BP systolic 104–140; BP diastolic 23–81; PULSE 60–76; RESP 14–18; TEMP 36.5–36.8; O2SAT 95–98; BMI 26.9
--- NOTE | ~2021-01-19 | XR_ITS ---
EXAMINATION: XR CHEST CLINICAL INFORMATION: Syncope COMPARISON: Previous chest x-ray most recent September 2020 TECHNIQUE: Frontal view of the chest was obtained. FINDINGS: The cardiac and mediastinal contours are stable. There is a coronary artery stent. The lungs are clear. There is no pleural effusion or pneumothorax. There are degenerative changes of the spine. XR/XR chest 1V IMPRESSION: No evidence for acute disease in the chest.
--- NOTE | ~2021-01-19 | CT_ITS ---
EXAMINATION: CT HEAD WITHOUT CONTRAST CLINICAL INFORMATION: Left-sided facial droop and slurred speech COMPARISON: Previous head CT most recent June 2019 TECHNIQUE: Contiguous axial imaging was performed from the skull base to vertex without intravenous administration of contrast. This CT examination was performed using dose optimization techniques as appropriate, variously including the following: *Automated exposure control *Adjustment of mA and/or kV according to patient size (this includes techniques or standardized protocols for targeted exams where dose is matched to indication/reason for exam; i.e. extremities or head) *Use of iterative reconstruction technique DLP: 595 mGy-cm FINDINGS: There is no evidence of an extra-axial collection. There is no evidence of intra or extra-axial hemorrhage. There is age-appropriate prominence of the ventricles and extra-axial CSF spaces. There is nonspecific periventricular white matter disease. No mass, mass effect or infarct is seen. There is evidence of atherosclerotic disease. No skull fracture is seen. There is evidence of sinusitis, greatest in the left maxillary sinus. CT/CT head/brain wo con IMPRESSION: No acute intracranial findings. Age-appropriate prominence of the ventricles and extra-axial CSF spaces and periventricular white matter disease. Sinusitis, most severe in the left maxillary sinus, similar to previous exam.
--- NOTE | ~2021-01-19 | US_ITS ---
EXAMINATION: US EXTRACRANIAL CAROTID DUPLEX, BILATERAL CLINICAL INFORMATION: Syncope COMPARISON: May 14, 2018 TECHNIQUE: Real-time ultrasound and Doppler techniques (integrating B-mode 2-D vascular images, Doppler spectral analysis and color-flow Doppler imaging) were utilized to interrogate the extracranial carotid arteries, the vertebral arteries and proximal subclavian arteries bilaterally. The degree of stenosis is determined by criteria similar to NASCET. FINDINGS: Right Side: 1. There is moderate calcified atherosclerotic plaque seen in the bifurcation/proximal ICA region as well as within the mid common carotid artery. 2. The common carotid artery PSV proximally is 79 cm/s and distally 92 cm/s. 3. The proximal internal carotid artery velocities are 96 cm/s systolic and 11 cm/s diastolic. 4. The proximal external carotid artery PSV is 86 cm/s. 5. The vertebral artery shows antegrade flow. 6. The subclavian artery waveforms are unremarkable. Left Side: 1. There is moderate calcified atherosclerotic plaque seen in the bifurcation/proximal ICA region. 2. The common carotid artery PSV proximally is 68 cm/s and distally 60 cm/s. 3. The proximal internal carotid artery velocities are 57 cm/s systolic and 11 cm/s diastolic. 4. The proximal external carotid artery PSV is 80 cm/s. 5. The vertebral artery shows antegrade flow. 6. The subclavian artery waveforms are blunted with peak systolic velocity 192 cm/s with spectral broadening suspicious for proximal hemodynamically significant lesion.. US/US carotid duplex BI IMPRESSION: 1. RIGHT: Minimal, non-hemodynamically significant stenosis of the proximal right internal carotid artery corresponding to a 0-49% stenosis by velocity criteria. 2. LEFT: Minimal, non-hemodynamically significant stenosis of the proximal left internal carotid artery corresponding to a 0-49% stenosis by velocity criteria. 3. There is elevation of peak systolic velocity with spectral broadening in the left subclavian artery suggestive of hemodynamically significant more proximal lesion..
--- NOTE | 2021-01-19 12:56 | ECG_ITS ---
Test Reason : NEAR SYNCOPE Blood Pressure : / mmHG Vent. Rate : 063 BPM Atrial Rate : 063 BPM P-R Int : 142 ms QRS Dur : 124 ms QT Int : 490 ms P-R-T Axes : 048 -44 062 degrees QTc Int : 501 ms Normal sinus rhythm Left axis deviation Right bundle branch block Left ventricular hypertrophy with repolarization abnormality Abnormal ECG When compared with ECG of 25-OCT-2020 08:32, T wave inversion more evident in Lateral leads Referred By: Stephanie Fajardo Electronically Signed By:MERRITT QUINONES MD
--- NOTE | 2021-01-19 12:56 | PC.NURSE ---
PT ALERT AND ORIENTED, SKIN SLIGHTLY PALE IN APPEARANCE, SCLERA ALSO SLIGHTLY PALE, PT REPORTS HAVING DIALYSIS TODAY AT 0600, AROUND 1000 NOTICED THAT HER FISTULA STARTED TO BLEED, PT ALSO REPORTS THAT HER STAFF AT THE FACILITY STATED THAT SHE PASS OUT WHILE SITTING IN HER WHEELCHAIR, PT DOES NOT REMEMBER THAT. FISTULA IS CURRENTLY BLEEDING, BRET ASH AT BEDSIDE SURGICEL AND ASA WRAP APPLIED TO THE LEFT UPPER ARM. PT DENEIS PAIN/SOB/CHEAT PAIN/DIZZIES AT THIS TIME. NS ON THE MONITOR, VS STABLE
--- NOTE | 2021-01-19 14:22 | ED_ITS ---
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 Patient completed dialysis this morning. Per faculty patient was sitting in chair during episode, denies head trauma or LOC, entire episode lasted less than 1 minute. Patient reports symptomatic improvement at present. Is on ASA, no other anticoagulants. Denies headache, CP/SOB, abdominal pain, nausea/vomiting Related Data Home Medications Medication Instructions Recorded Confirmed albuterol sulfate 90 mcg/actuation 2 puff INHALATION Q4H PRN g 06/30/20 10/25/20 aerosol inhaler cholecalciferol (vitamin D3) 25 25 mcg PO DAILY 06/30/20 10/25/20 mcg (1,000 unit) capsule fenofibrate micronized 134 mg 134 mg PO DAILY 06/30/20 10/25/20 capsule fluticasone propionate 50 1 spray INTRANASAL DAILY 06/30/20 10/25/20 mcg/actuation nasal spray,suspension omeprazole 20 mg capsule,delayed 20 mg PO DAILY 06/30/20 10/25/20 release ondansetron 4 mg disintegrating 8 mg PO DIRECTED 06/30/20 10/25/20 tablet sevelamer carbonate 800 mg tablet 800 mg PO TID tab 06/30/20 10/25/20 losartan 25 mg tablet 50 mg PO DAILY tab 08/26/20 10/25/20 spironolactone 50 mg tablet 50 mg PO DAILY 08/26/20 10/25/20 Previous Rx's Medication Instructions Recorded isosorbide dinitrate 10 mg tablet 10 mg PO BID 90 Days #180 tab 05/21/20 montelukast 10 mg tablet 10 mg PO DAILY #90 tab 05/26/20 metoprolol tartrate 25 mg tablet 25 mg PO BID #60 tab 06/07/20 gabapentin 300 mg capsule 300 mg PO BID 30 Days #60 cap 06/30/20 omega-3 acid ethyl esters 1 gram 2 cap PO DAILY #180 cap 07/01/20 capsule aspirin 81 mg tablet,delayed 81 mg PO DAILY #90 tab 07/19/20 release clopidogrel 75 mg tablet 75 mg PO DAILY #90 tab 07/19/20 dulaglutide 1.5 mg/0.5 mL 1.5 mg SUBCUT QWEEK 90 Days #13 08/24/20 subcutaneous pen injector syringe famotidine 20 mg tablet 20 mg PO BEDTIME #90 tab 09/20/20 paroxetine HCl 20 mg tablet 20 mg PO QAM #90 tab 10/15/20 atorvastatin 80 mg tablet 80 mg PO DAILY #90 tab 10/18/20 heparin(porcine) in 0.45% NaCl 25,000 unit CONTINUOUS IV INFUSION 10/25/20 .Q24H #6000 ml nitroglycerin in 5 % dextrose 3 ml CONTINUOUS IV INFUSION .Q0M 10/25/20 #3000 ml Allergies Allergy/AdvReac Type Severity Reaction Status Date / Time Penicillins Allergy Mild RASH Verified 10/24/20 20:11 penicillin V Allergy Unknown rash of Verified 10/24/20 20:11 skin Review of Systems Review of Systems: Constitutional: No Fever, No Chills, No Fatigue, No Malaise ENT/Mouth: No Ear Pain, No sore throat Eyes: No Eye Pain, No Swelling, No Vision Changes Cardiovascular: No Chest Pain, No SOB, No Edema, No Palpitations Respiratory: No Cough, No Dyspnea Gastrointestinal: No Nausea, No Vomiting, No Abdominal pain Genitourinary: No Dysuria, No Urinary Frequency, No Hematuria Musculoskeletal: No joint pain, No Myalgias, No Joint Swelling Skin: + bleeding fistula, No rash Neuro: No Weakness, No Numbness, + Loss of Consciousness, + lightheaded, No Headache Yes all other systems are reviewed and are negative Neurologic: Denies Abnormal speech present [facility] Past Medical History Attestation statement: The following information was validated with the patient. Medical History Anemia Aortic stenosis CHF (congestive heart failure), NYHA class I Coronary artery disease CRF (chronic renal failure) ESRD (end stage renal disease) on dialysis H/O non-ST elevation myocardial infarction (NSTEMI) Hyperlipidemia Surgical History (Updated 11/21/20 @ 11:19 by Mesha Rogel MD) H/O abdominal hysterectomy H/O right hemicolectomy History of angioplasty History of biopsy History of cataract surgery History of surgery Family History Family History Father No problems noted. Mother Bladder cancer Maternal Aunt Colon cancer Paternal Aunt Colon cancer Social History Social History Alcohol intake: never Patient Tobacco Use Status: Former Tobacco user Physical Exam Vital Signs: Vital Signs: Last Vital Signs Temp 98.2 F 01/19/21 12:17 Pulse 67 01/19/21 16:30 Resp 16 01/19/21 16:25 BP 123/30 L 01/19/21 16:30 Pulse Ox 98 01/19/21 12:17 Body Mass Index 26.9 Const: General: cooperative and no acute distress Or ientation/consciousness: patient oriented x3 Limitations: no limitations HENMT: Head: Yes normal to inspection and Yes atraumatic Ears: hearing grossly normal bilaterally General nose exam: Normal external nose present Face and sinus: Yes normal facial exam Eyes: Other: Pale conjunctiva General: appearance normal, both eyes and all related structures EOM: EOMs intact bilaterally Neck: Neck: Yes normal visual inspection and Yes no meningeal signs Resp: Effort & Inspection: normal respiratory effort and no respiratory distress Cardio: Rate: regular rate Heart sounds: S1 normal heart sound present and S2 normal heart sound present Peripheral pulses: radial pulses present GI: Inspection: Yes normal to inspection Palpation (GI): Soft to palpation, nontender, no guarding and not rigid Skin: Other: Left upper arm fistula with pulsatile bleeding, no evidence of infection/cellulitis. Distal pulses present Rashes: no rashes Neuro: General: patient oriented x3, tone normal, moves all extremities, no meningeal signs, no focal motor deficits and CN's II-XI intact bilaterally Cranial nerves: Yes CN's II-XII intact bilaterally and Yes Bilaterally intact EOM present Cognition (Neuro): normal cognition Speech: No Abnormal speech present Gait exam (Neuro): Normal gait present Motor exam (neuro): 5/5 motor strength present throughout and Pronator motor function not present Coordination: [id number] test normal Extrem: General: Yes normal to inspection and Yes no pedal edema Course Course Course Narrative: -1433--high Bjorn wrap removed. Surgicel still intact, bleeding controlled at this time -1643--no leukocytosis, H/H is stable, BNP 393 chronically elevated (lower than baseline) CT head/brain wo con IMPRESSION: No acute intracranial findings. Age-appropriate prominence of the ventricles and extra-axial CSF spaces and periventricular white matter disease. Sinusitis, most severe in the left maxillary sinus, similar to previous exam. -1707--renal function elevated at baseline, patient was dialyzed today. AST elevated. 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 On exam VSS, NAD/nontoxic, physical exam as above, no focal neuro deficits, bleeding fistula noted. Concern for anemia/acute blood loss vs vasovagal syncope vs ?TIA. Rule out metabolic/infectious etiology. Low concern for CVA. Plan: EKG, labs, UA, CXR, head CT. Surgicel and tight Bjorn wrap applied Lab Data Result diagrams: 01/19/21 15:55 01/19/21 15:55 Labs: Lab Results 01/19/21 01/19/21 01/19/21 Range/Units 15:55 15:55 15:55 WBC 10.1 (4.8-10.8) X10*3/uL RBC 3.55 L (4.20-5.50) X10*6/uL Hgb 11.8 L (12.0-16.0) g/dl Hct 37.3 (37-47) % MCV 105.1 H (80-98) fL MCH 33.2 H (27.0-33.0) pg MCHC 31.6 (31.0-35.0) g/dl RDW 15.8 (11.0-16.0) % Plt Count 265 (160-400) X10*3/uL MPV 10.8 (9.4-12.3) fL Immature Gran % (Auto) 1.1 H (0.0-0.4) % Neut % (Auto) 66.1 (45-73) % Lymph % (Auto) 23.2 (20-40) % [place] % (Auto) 7.9 (2-11) % Eos % (Auto) 1.4 (0-4) % Baso % (Auto) 0.3 (0-2) % Lymph # (Auto) 2.4 (1.2-4.9) X10*3/uL [place] # (Auto) 0.8 (0.1-1.2) X10*3/uL Eos # (Auto) 0.1 (0.0-0.4) X10*3/uL Baso # (Auto) 0.0 (0.0-0.2) X10*3/uL Abs Immat Gran (auto) 0.11 H (0.00-0.03) X10*3/uL Absolute Neuts (auto) 6.7 (2.0-8.3) X10*3/uL Absolute Nucleated RBC 0.000 (0.0-0.012) X10*3/uL Nucleated RBC % (auto) 0.0 (0.0-0.2) /100WBC Smear Tech's Comments VERIFIED PT (9.9-13.0) SEC INR (0.9-1.1) APTT (24.1-38.0) SEC Sodium 136 (135-145) mmol/L Potassium 4.8 (3.3-5.1) mmol/L Chloride 98 (96-108) mmol/L Carbon Dioxide 26 (22-29) mmol/L Anion Gap 17 (12-20) BUN 19 H D (9-16) mg/dL Creatinine 4.35 H* (0.5-1.4) mg/dL Estim Creat Clear Calc 10.0 Estimated GFR 10 Random Glucose 104 (60-115) mg/dL Calcium 8.8 (8.4-10.2) mg/dL Magnesium 2.1 (1.6-2.6) mg/dL Total Bilirubin 0.8 (0.0-1.0) mg/dL Direct Bilirubin 0.5 (0.0-0.5) mg/dL AST 48 H D (5-31) U/L ALT 26 (0-31) U/L Alkaline Phosphatase 110 (39-117) U/L Troponin I High Sens 626.4 H* (<3.5-17.0) ng/L B-Natriuretic Peptide (<100) pg/mL Total Protein 7.1 D (6.5-8.0) g/dL Albumin 3.3 L D (3.5-5.0) g/dL 01/19/21 01/19/21 Range/Units 15:55 15:55 WBC (4.8-10.8) X10*3/uL RBC (4.20-5.50) X10*6/uL Hgb (12.0-16.0) g/dl Hct (37-47) % MCV (80-98) fL MCH (27.0-33.0) pg MCHC (31.0-35.0) g/dl RDW (11.0-16.0) % Plt Count (160-400) X10*3/uL MPV (9.4-12.3) fL Immature Gran % (Auto) (0.0-0.4) % Neut % (Auto) (45-73) % Lymph % (Auto) (20-40) % [place] % (Auto) (2-11) % Eos % (Auto) (0-4) % Baso % (Auto) (0-2) % Lymph # (Auto) (1.2-4.9) X10*3/uL [place] # (Auto) (0.1-1.2) X10*3/uL Eos # (Auto) (0.0-0.4) X10*3/uL Baso # (Auto) (0.0-0.2) X10*3/uL Abs Immat Gran (auto) (0.00-0.03) X10*3/uL Absolute Neuts (auto) (2.0-8.3) X10*3/uL Absolute Nucleated RBC (0.0-0.012) X10*3/uL Nucleated RBC % (auto) (0.0-0.2) /100WBC Smear Tech's Comments PT 14.1 H (9.9-13.0) SEC INR 1.2 H (0.9-1.1) APTT 34.0 (24.1-38.0) SEC Sodium (135-145) mmol/L Potassium (3.3-5.1) mmol/L Chloride (96-108) mmol/L Carbon Dioxide (22-29) mmol/L Anion Gap (12-20) BUN (9-16) mg/dL Creatinine (0.5-1.4) mg/dL Estim Creat Clear Calc Estimated GFR Random Glucose (60-115) mg/dL Calcium (8.4-10.2) mg/dL Magnesium (1.6-2.6) mg/dL Total Bilirubin (0.0-1.0) mg/dL Direct Bilirubin (0.0-0.5) mg/dL AST (5-31) U/L ALT (0-31) U/L Alkaline Phosphatase (39-117) U/L Troponin I High Sens (<3.5-17.0) ng/L B-Natriuretic Peptide 393 H (<100) pg/mL Total Protein (6.5-8.0) g/dL Albumin (3.5-5.0) g/dL Discharge Plan Discharge Clinical Impression: Hemorrhage of arteriovenous fistula, Syncope Prescriptions: No Action isosorbide dinitrate 10 mg tablet 10 mg PO BID 90 Days Qty: 180 RF: 0 Hold Instructions: Resume on 11/01/20. Resume per [facility] montelukast 10 mg tablet 10 mg PO DAILY Qty: 90 RF: 3 metoprolol tartrate 25 mg tablet 25 mg PO BID Qty: 60 RF: 1 omega-3 acid ethyl esters 1 gram capsule 2 cap PO DAILY Qty: 180 RF: 3 dulaglutide [Trulicity] 1.5 mg/0.5 mL pen injector 1.5 mg subcut QWEEK 90 Days Qty: 13 RF: 2 famotidine 20 mg tablet 20 mg PO BEDTIME Qty: 90 RF: 2 paroxetine HCl 20 mg tablet 20 mg PO QAM Qty: 90 RF: 2 atorvastatin 80 mg tablet 80 mg PO DAILY Qty: 90 RF: 3 heparin(porcine) in 0.45% NaCl 25,000 unit/250 mL Parenteral Solution 25,000 unit continuous IV infusion .Q24H Qty: 6000 RF: 0 nitroglycerin in 5 % dextrose 100 mg/250 mL (400 mcg/mL) Solution 3 ml continuous IV infusion .Q0M Qty: 3000 RF: 0 spironolactone 50 mg tablet 50 mg PO DAILY RF: 0 Hold Instructions: Resume on 11/01/20. Resume per [facility] losartan 25 mg tablet 50 mg PO DAILY RF: 0 Hold Instructions: Resume on 11/01/20. Resume per [facility] ondansetron 4 mg tablet,disintegrating 8 mg PO DIRECTED RF: 0 fenofibrate micronized 134 mg capsule 134 mg PO DAILY RF: 0 omeprazole 20 mg capsule,delayed release(DR/EC) 20 mg PO DAILY RF: 0 albuterol sulfate [ProAir HFA] 90 mcg/actuation HFA aerosol inhaler 2 puff inhalation Q4H PRN (Reason: Shortness Of Breath Or Wheezing) RF: 0 fluticasone propionate 50 mcg/actuation spray,suspension 1 spray intranasal DAILY RF: 0 cholecalciferol (vitamin D3) 25 mcg (1,000 unit) capsule 25 mcg PO DAILY RF: 0 sevelamer carbonate 800 mg tablet 800 mg PO TID RF: 0 gabapentin 300 mg capsule 300 mg PO BID 30 Days Qty: 60 RF: 1 aspirin 81 mg tablet,delayed release (DR/EC) 81 mg PO DAILY Qty: 90 RF: 1 clopidogrel [Plavix] 75 mg tablet 75 mg PO DAILY Qty: 90 RF: 1
--- NOTE | 2021-01-19 14:42 | PC.NURSE ---
estela wrap taken off, bleeding under control at this time
--- NOTE | 2021-01-19 15:22 | PC.NURSE ---
pt is a very hard stick, phlebotomy called for assistace
[2021-01-19 16:07] LABS: Basophils Percent Auto 0.3 % (0-2); MANUAL DIFF FLAG SCAN; Mean Corpuscular Volume 105.1 fL (80-98); PLT CLUMP 1; Red Cell Distribution Width 15.8 % (11.0-16.0); SCAN SMEAR FLAG 1
[2021-01-19 16:09] LABS: Eosinophils Absolute Auto 0.1 X10*3/uL (0.0-0.4); Eosinophils Percent Auto 1.4 % (0-4); Hematocrit 37.3 % (37-47); Hemoglobin 11.8 g/dl (12.0-16.0); Imm Gran Abs Auto 0.11 X10*3/uL (0.00-0.03); Imm Gran Pct Auto 1.1 % (0.0-0.4); Lymphocytes Absolute Auto 2.4 X10*3/uL (1.2-4.9); Lymphocytes Percent Auto 23.2 % (20-40); Mean Corpuscular HGB Conc 31.6 g/dl (31.0-35.0); Mean Corpuscular Hemoglobin 33.2 pg (27.0-33.0); Mean Platelet Volume 10.8 fL (9.4-12.3); Monocytes Absolute Auto 0.8 X10*3/uL (0.1-1.2); Monocytes Percent Auto 7.9 % (2-11); Neutrophils Absolute Auto 6.7 X10*3/uL (2.0-8.3); Neutrophils Percent Auto 66.1 % (45-73); Platelet Count 265 X10*3/uL (160-400); Red Blood Count 3.55 X10*6/uL (4.20-5.50); White Blood Count 10.1 X10*3/uL (4.8-10.8)
[2021-01-19 16:23] LABS: INTERNATIONAL NORM RATIO 1.2 (0.9-1.1); Prothrombin Time 14.1 SEC (9.9-13.0)
[2021-01-19 16:31] LABS: SLIDE REVIEW VERIFIED
[2021-01-19 16:40] LABS: B Type Natriuretic Peptide 393 pg/mL (<100)
[2021-01-19 16:44] LABS: Alanine Aminotransferase 26 U/L (0-31); Albumin Level 3.3 g/dL (3.5-5.0); Alkaline Phosphatase 110 U/L (39-117); Anion Gap 17 (12-20); Aspartate Amino Transferase 48 U/L (5-31); Bilirubin Direct 0.5 mg/dL (0.0-0.5); Bilirubin Total 0.8 mg/dL (0.0-1.0); Blood Urea Nitrogen 19 mg/dL (9-16); Calcium 8.8 mg/dL (8.4-10.2); Carbon Dioxide 26 mmol/L (22-29); Chloride 98 mmol/L (96-108); Estimated Glomerular Filt Rate 10; Glucose Random 104 mg/dL (60-115); Magnesium 2.1 mg/dL (1.6-2.6); Potassium 4.8 mmol/L (3.3-5.1); Sodium 136 mmol/L (135-145); Total Protein 7.1 g/dL (6.5-8.0)
[2021-01-19 17:04] LABS: Troponin-I High Sensitivity 626.4 ng/L (<3.5-17.0)
[2021-01-19 19:49] LABS: Troponin-I High Sensitivity 664.1 ng/L (<3.5-17.0)
--- NOTE | 2021-01-19 19:57 | PHA.MEDREC ---
Pharmacy Consult ? Medication Reconciliation Pharmacy has completed the medication reconciliation.
--- NOTE | 2021-01-19 20:40 | HP_ITS ---
DATE OF SERVICE: 01/19/2021 CHIEF COMPLAINT: Syncopal episode. HISTORY OF PRESENTING ILLNESS: This is a 75-year-old female patient with past medical history significant for end-stage renal disease on hemodialysis Sunday, Sunday, and Sunday, history of aortic stenosis, CHF, coronary artery disease, [id number] VA. The patient was recently admitted to [facility] on September 2020, diagnosed to have [id number] VA, placed on IV heparin drip and was subsequently transferred to [facility]. According to patient, she did not receive any cardiac intervention at [facility], however she underwent ileostomy and colon resection. The patient does not know the details surrounding the procedure. The patient received hemodialysis this morning and was sent back to [facility] where she is residing since her discharge from [facility] couple months ago where she was noted to have bleeding from the left arm fistula. The patient was sitting on her wheelchair and then she passed out. She does not remember what happened to her, she woke up on the bed in the emergency room. She denies any symptoms of chest pain, palpitation, lightheadedness, or dizziness. She does not feel that she had syncope at the sight of blood. The nurse from nursing facility notified that the patient was noted to be pale and clammy with left-sided facial droop and slurred speech. In the emergency room, the patient was awake, alert, had no neurological deficit. Her CT head without contrast showed no acute intracranial findings, it showed sinusitis, most severe in the left maxillary sinus similar to previous exam. Further workup showed an elevated troponin of 626. The patient was treated in the emergency room with Surgicel to the fistula site. Bleeding was subsequently stopped and patient is now being admitted to [facility] for continued monitoring and treatment for syncope and elevated troponin. The patient denies any chest pain, no palpitations. She does not remember what happened to her. She denied any recent bout of nausea, vomiting, diarrhea. She denied any recent fever, chills. She has been mostly on wheelchair since discharge from [facility], is working with Physical Therapy and have just started ambulation. The patient's EKG showed ST-depression that is unchanged from most recent EKG. Her renal function is at baseline. PAST MEDICAL HISTORY: Significant for history of aortic stenosis, history of congestive heart failure, history of coronary artery disease, history of end-stage renal disease on dialysis, history of prior vez-GM-srxbsuhlb VA, and history of hyperlipidemia. PAST SURGICAL HISTORY: Status post colectomy and recent ileostomy at [facility]. FAMILY HISTORY: Parents are diseased. Mother had bladder cancer. Maternal aunt had colon cancer and paternal aunt had colon cancer as well. PAST SURGICAL HISTORY: Also includes status post angioplasty, status post abdominal hysterectomy, is status post cataract surgery. SOCIAL HISTORY: The patient denies alcohol use. She is a former smoker. Currently resident of nursing facility. REVIEW OF SYSTEMS: GENERAL: The Patient denies any fever, chills, rigors. THREAD CLIPPER: She complains of headache. No dizziness or lightheadedness. She denies any weakness. She has chronic numbness on tip of fingers. CV: No chest pain or palpitation. RESPIRATORY: No cough, no sputum production. GI: No nausea, no vomiting. No abdominal pain. SKIN: She denies any rashes or lesions. Rest of all other systems are reviewed and are negative. PHYSICAL EXAMINATION: GENERAL: The patient is resting comfortably in bed. Does not appear to be in acute distress. VITAL SIGNS: Blood pressure 107/34 with a pulse of 63, respiratory rate 14. She is afebrile with a finger oximetry 96% on room air. HEENT: Pupils equal, round, and reactive to light and accommodation. Anicteric sclerae. NECK: Supple. No JVD. LUNGS: Clear to auscultation bilaterally. HEART: Regular rate rhythm with systolic murmur best heard at the left sternal border. ABDOMEN: Soft, nontender. There is a midline incision well healed. Ileostomy in place. Stoma functioning well. EXTREMITIES: Without clubbing, cyanosis, or edema. NEURO: Normal. Cranial nerve II to XII intact. LABORATORY DATA: Sodium 136, potassium 4.8, chloride 98, BUN 19, creatinine of 4.35. AST 48, troponin 626, BNP 393, chronically elevated albumin of 3.3. EKG showed old left axis deviation, right bundle branch block, ST and T-wave changes in lateral leads. The last echocardiogram from September of 2020 showed EF of 45% to 50%, evidence of regional wall motion abnormality, normal left ventricular cavity size, moderately increased left ventricular thickness, moderate to severe aortic valve stenosis. Chest x-ray today showed no evidence of acute disease in the chest. Head CT, no acute abnormality. ASSESSMENT AND PLAN: This is a 75-year-old female patient with past medical history significant for end-stage renal disease, coronary artery disease, status post [id number] myocardial infarction, status post recent bowel surgery, presented to [facility] after she had a syncopal episode associated with slurred speech and left-sided facial droop and was noted to have bleeding from fistula of left arm. 1. Syncope. Unknown cause of syncope. Question related to hypotension after hemodialysis. No evidence of acute infection or stroke. All neurological symptoms including left-sided facial droop and slurred speech resolved. No witnessed seizure noticed at the nursing facility or in the emergency room. We will admit the patient to telemetry unit to rule out arrhythmia, the patient with elevated troponin, but with no chest discomfort. We will repeat troponin and obtain an echocardiogram. Obtain cardiology consultation. We will hold off on anticoagulation since the patient is asymptomatic and had a fistula bleed. Case discussed with Cardiology. 2. Bleeding from fistula. Bleeding stopped with use of Surgicel and Bjorn wrap. Hematocrit is stable. We will repeat hematocrit at a.m., transfuse as needed. The patient has history of fistular bleed in the past. Will discuss with Nephrology regarding definite treatment. 3. End-stage renal disease. Continue hemodialysis. Obtain nephrology consultation. 4. History of hypertension. Medications needs to be reconciled. Will resume home medications. It seems that the patient is on Lipitor, isosorbide, losartan, and metoprolol. 5. History of diabetes mellitus. The patient is on Trulicity. We will follow blood sugars closely. 6. Deep vein thrombosis prophylaxis. We will place on compression boots due to bleeding from fistula. 7. Code status. The patient wishes to be DNR/DNI. The patient's healthcare proxy is her roommate, Conor Pacheco, phone #[phone]. MD NEERAJ Nair/JERMAINE / [phone]
--- NOTE | 2021-01-19 20:55 | PC.NURSE ---
pt resting comfortably awaiting a room assignment, pt also had a snack
--- NOTE | 2021-01-19 21:42 | PC.NURSE ---
MD MADE AWARE OF BP, BOLUS ORDERED, WILL CONTINUE TO ASSESS AND MONITOR.
[2021-01-19] MEDS: 0.9 % Sodium Chloride 500 ML 250 ML IV (21:47)
[2021-01-20] VITALS (7 sets, daily range): BP systolic 96–147; BP diastolic 26–67; PULSE 70–79; RESP 16; TEMP 36.1–36.7; O2SAT 95–99
[2021-01-20] MEDS: Midodrine HCl 5 MG TABLET PO (00:17)
[2021-01-20] MEDS: 0.9 % Sodium Chloride Flush 3 ML SYRINGE IVFLUSH ×4 (00:18→21:24)
--- NOTE | 2021-01-20 07:19 | PC.NURSE ---
attempted to call report at [phone]
--- NOTE | 2021-01-20 07:48 | HO.PM.IMPN ---
Subjective Subjective Date of Service: 01/20/21 Interval History: ESRD and fistulae area bleeding. Elevated troponins Review of Systems Elevated troponin denies any chest pain or shortness of breath or abdominal pain or fever chills or cough or phlegm. Physical Exam Vital Signs: Vital Signs: Last Vital Signs Temp 98.0 F 01/20/21 04:00 Pulse 76 01/20/21 04:00 Resp 16 01/20/21 04:00 BP 96/26 L 01/20/21 04:00 Pulse Ox 96 01/20/21 04:00 Body Mass Index 26.9 Physical exam: Cvs: rrr, [id number] , no murmur res: clear to auscultation ,no rhonchii or wheezing abd: no rebound or guarding ,nt, bs present. ext pulses present , no cyanosis skin: fistula area seems clean .has dressing , no overt bleeding neuro: axo3 , nonfocal. Objective Data Current Medications Generic Name Dose Route Start Last Admin Trade Name Freq PRN Reason Stop Dose Admin Acetaminophen 650 mg 01/19/21 21:39 Acetaminophen 325 Mg Tablet PO Q4H PRN PAIN OR ELEVATED TEMP Albuterol Sulfate 2 puff 01/19/21 21:39 Albuterol Sulfate 90 Mcg 8 Gm Inhaler INHALE Q4H PRN Shortness Of Breath Or Wheezing Atorvastatin Calcium 80 mg 01/20/21 21:00 Atorvastatin Calcium 80 Mg Tablet PO BEDTIME [facility] Cyanocobalamin 1,000 mcg 01/20/21 09:00 Cyanocobalamin (Vitamin B-12) 1,000 Mcg Tablet PO DAILY [facility] Famotidine 20 mg 01/20/21 21:00 Famotidine 20 Mg Tablet PO BEDTIME [facility] Fenofibrate 134 mg 01/20/21 09:00 Fenofibrate,Micronized 134 Mg Capsule PO DAILY [facility] Fluticasone Propionate 2 spray 01/20/21 09:00 Fluticasone Propionate Nasal 16 Gm [place] NOSTRIL-B BID [facility] Gabapentin 100 mg 01/20/21 09:00 Gabapentin 100 Mg Capsule PO BID [facility] Insulin Human Lispro 0 unit 01/20/21 07:30 Insulin Lispro 100 Unit/Ml 3 Ml Vial SUBCUT QIDACHS [facility] Protocol Montelukast Sodium 10 mg 01/20/21 21:00 Montelukast Sodium 10 Mg Tablet PO BEDTIME [facility] Ondansetron HCl 4 mg 01/19/21 18:37 Ondansetron Hcl 4 Mg/2 Ml Vial IVPUSH Q8H PRN Nausea and Vomiting Paroxetine HCl 20 mg 01/20/21 09:00 Paroxetine Hcl 20 Mg Tablet PO DAILY [facility] Sevelamer Carbonate 800 mg 01/20/21 21:00 Sevelamer Carbonate Tablet 800 Mg Tablet PO BEDTIME [facility] Sevelamer Carbonate 800 mg 01/20/21 08:00 Sevelamer Carbonate Tablet 800 Mg Tablet PO TIDWM [facility] Sodium Chloride 3 ml 01/20/21 00:00 01/20/21 00:18 0.9 % Sodium Chloride Flush 3 Ml Syringe IVFLUSH 3 ml QSHIFT [facility] Administration Vitamin D 25 mcg 01/20/21 09:00 Cholecalciferol (Vitamin D3) 25 Mcg Tablet PO DAILY [facility] Labs CBC & Chem 7: 01/20/21 08:11 01/20/21 08:11 Labs: Laboratory Results - last 24 hr 01/19/21 01/19/21 01/19/21 15:55 15:55 15:55 WBC 10.1 RBC 3.55 L Hgb 11.8 L Hct 37.3 MCV 105.1 H MCH 33.2 H MCHC 31.6 RDW 15.8 Plt Count 265 MPV 10.8 Immature Gran % (Auto) 1.1 H Neut % (Auto) 66.1 Lymph % (Auto) 23.2 Treasure % (Auto) 7.9 Eos % (Auto) 1.4 Baso % (Auto) 0.3 Lymph # (Auto) 2.4 Treasure # (Auto) 0.8 Eos # (Auto) 0.1 Baso # (Auto) 0.0 Abs Immat Gran (auto) 0.11 H Absolute Neuts (auto) 6.7 Absolute Nucleated RBC 0.000 Nucleated RBC % (auto) 0.0 Smear Tech's Comments VERIFIED PT INR APTT Sodium 136 Potassium 4.8 Chloride 98 Carbon Dioxide 26 Anion Gap 17 BUN 19 H D Creatinine 4.35 H* Estim Creat Clear Calc 10.0 Estimated GFR 10 Random Glucose 104 Calcium 8.8 Magnesium 2.1 Total Bilirubin 0.8 Direct Bilirubin 0.5 AST 48 H D ALT 26 Alkaline Phosphatase 110 Troponin I High Sens 626.4 H* B-Natriuretic Peptide Total Protein 7.1 D Albumin 3.3 L D 0701/19/21 01/19/21 15:55 15:55 18:58 WBC RBC Hgb Hct MCV MCH MCHC RDW Plt Count MPV Immature Gran % (Auto) Neut % (Auto) Lymph % (Auto) Treasure % (Auto) Eos % (Auto) Baso % (Auto) Lymph # (Auto) Treasure # (Auto) Eos # (Auto) Baso # (Auto) Abs Immat Gran (auto) Absolute Neuts (auto) Absolute Nucleated RBC Nucleated RBC % (auto) Smear Tech's Comments PT 14.1 H INR 1.2 H APTT 34.0 Sodium Potassium Chloride Carbon Dioxide Anion Gap BUN Creatinine Estim Creat Clear Calc Estimated GFR Random Glucose Calcium Magnesium Total Bilirubin Direct Bilirubin AST ALT Alkaline Phosphatase Troponin I High Sens 664.1 H* B-Natriuretic Peptide 393 H Total Protein Albumin Quality Stroke Does the patient have a stroke diagnosis?: No VTE Prior VTE?: No VTE Risk Level:: Medical - moderate - high VTE Device Contraindication: N/A - Device Ordered VTE Drug Contraindication: Treatment Not Indicated Assessment and Plan (1) Elevated troponin: Status: Acute (2) ESRD (end stage renal disease) on dialysis: Status: Acute (3) Syncope: Status: Acute Assessment and Plan: 75-year-old female patient with past medical history significant for end-stage renal disease, coronary artery disease, status post [id number] myocardial infarction, status post recent bowel surgery, presented to [facility] after she had a syncopal episode associated with slurred speech and left-sided facial droop and was noted to have bleeding from fistula of left arm. 1. Syncope/elevated troponins. Unknown cause of syncope. Question related to hypotension after hemodialysis. The cardiology evaluation appreciated-syncope probably due to cerebral hypoperfusion secondary to a blood pressures, added bilateral carotid. Patient received overnight fluids, in the morning we give her midodrine also. Blood pressure is improving Will continue to monitor. 2. Bleeding from fistula. H&H stable No new signs Nephrology evaluation pending 3. End-stage renal disease. Continue hemodialysis. nephrology consultation. 4. History of hypertension. Medications needs to be reconciled. Will resume home medications. It seems that the patient is on Lipitor hold isosorbide,losartan, and metoprolol for now due to borderline blood pressure- will add slowly as per blood pressure. 5. History of diabetes mellitus. The patient is on Trulicity. We will follow blood sugars closely. 6. Deep vein thrombosis prophylaxis. We will place on compression boots due to bleeding from fistula.
[2021-01-20 08:34] LABS: Hematocrit 35.4 % (37-47); Hemoglobin 11.4 g/dl (12.0-16.0); Mean Corpuscular HGB Conc 32.2 g/dl (31.0-35.0); Mean Corpuscular Hemoglobin 33.6 pg (27.0-33.0); Mean Corpuscular Volume 104.4 fL (80-98); Mean Platelet Volume 10.8 fL (9.4-12.3); Platelet Count 294 X10*3/uL (160-400); Red Blood Count 3.39 X10*6/uL (4.20-5.50); Red Cell Distribution Width 15.9 % (11.0-16.0); White Blood Count 11.1 X10*3/uL (4.8-10.8)
[2021-01-20 09:06] LABS: Glucose, Whole Blood 97 mg/dL (60-115)
[2021-01-20 09:34] LABS: Anion Gap 15 (12-20); Blood Urea Nitrogen 34 mg/dL (9-16); Calcium 8.6 mg/dL (8.4-10.2); Carbon Dioxide 25 mmol/L (22-29); Chloride 99 mmol/L (96-108); Creatinine Clr Calc Pharmacy 7.3; Estimated Glomerular Filt Rate 7; Glucose Random 104 mg/dL (60-115); Potassium 4.8 mmol/L (3.3-5.1); Sodium 134 mmol/L (135-145)
[2021-01-20] MEDS: Sevelamer Carbonate Tablet 800 MG TABLET PO ×4 (09:58→21:24)
[2021-01-20] MEDS: Cholecalciferol (Vitamin D3) 25 MCG TABLET PO (09:58)
[2021-01-20] MEDS: Fenofibrate,Micronized 134 MG CAPSULE PO (09:58)
[2021-01-20] MEDS: Gabapentin 100 MG CAPSULE PO ×2 (09:58→21:23)
[2021-01-20] MEDS: PARoxetine HCL 20 MG TABLET PO (09:58)
[2021-01-20] MEDS: Cyanocobalamin (Vitamin B-12) 1,000 MCG TABLET 1000 MCG PO (09:58)
[2021-01-20] MEDS: Midodrine HCl 10 MG TABLET PO (09:58)
--- NOTE | 2021-01-20 10:37 | PM.CNCAR ---
History of Present Illness History of Present Illness Date of Service: 01/20/21 Requesting physician: Marta Mccain Consult reason: troponin elevation and other (Syncope) Chief complaint: SYNCOPE/BLEEDING FROM FISTULA Narrative: I was requested to see Kristine in cardiology consultation due to elevated troponin and syncope with some neurologic symptoms. Patient with extremely complex past medical history including diffuse coronary artery disease with multiple interventions, last 1 in September this year when she present with acute coronary syndrome and subsequently underwent drug-eluting stent to the circumflex artery which was deemed to be her culprit vessel. This was a complicated intervention. She did also had significant residual LAD disease with positive IFR, was deemed to be not a culprit lesion to be managed medically. Since that hospital admission she has been admitted to [facility] for rehabilitation. She also has underlying moderate aortic stenosis, labile blood pressure, end-stage renal disease on hemodialysis, Sunday, heart failure with preserved ejection fraction hyperlipidemia, diabetes, poor functional status and frailty. She presented to the hospital yesterday after having her dialysis session she was sent to her [facility] facility and subsequently developed bleeding from the AV fistula site. She then was in her wheelchair and subsequently had lost consciousness and passed out, nurse at notice that she had some facial droop and some focal neurologic findings and shows cold and clammy. She was then subsequently transported to the hospital by ambulance. She says she regained consciousness while she was being put in the ambulance. She does not recall any other events. She did not have any prodrome of prior chest pain, shortness of breath, palpitations, lightheadedness. In the ED she was noted to have elevated troponin the 600 range. EKG done showed normal sinus rhythm with right bundle-branch block with left ventricular hypertrophy and diffuse ST T wave changes which are better compared to a prior EKG. We will call from the emergency room about possibility of IV anticoagulation, however due to bleeding AV fistula this was contraindicated. Subsequent troponin was flat. She has been admitted. She has been alert and oriented. Her blood pressure runs on the lower side. Currently she denies any chest pain, shortness of breath, lightheadedness. She is comfortable in bed. Review of Systems Constitutional: Constitutional: Denies chills, Reports fatigue, Denies fever(s) and Reports malaise Cardiovascular: Cardiovascular: Denies chest pain, Denies leg edema, Denies lightheadedness, Reports Loss of Consciousness, Denies palpitations and Denies dyspnea Respiratory: Respiratory: Reports no additional respiratory complaints and Denies dyspnea Gastrointestinal: Gastrointestinal: Reports no additional gastrointestinal complaints Genitourinary: Genitourinary: Reports no additional female genitourinary complaints Musculoskeletal: Musculoskeletal: Reports no additional musculoskeletal complaints Neurologic: Reports system reviewed and no additional complaints, except as documented Psychiatric: Psychiatric: Reports no additional psychiatric complaints Endocrine: Endocrine: Reports no additional endocrine complaints, Reports fatigue and Denies palpitations Hematologic/Lymphatic: Hematologic/Lymphatic: Reports no additional hematologic/lymphatic complaints [facility] Past Medical History Medical History Anemia Aortic stenosis CHF (congestive heart failure), NYHA class I Coronary artery disease CRF (chronic renal failure) ESRD (end stage renal disease) on dialysis H/O non-ST elevation myocardial infarction (NSTEMI) Hyperlipidemia Family History Family History Father No problems noted. Mother Bladder cancer Maternal Aunt Colon cancer Paternal Aunt Colon cancer Surgical History Surgical History H/O abdominal hysterectomy H/O right hemicolectomy History of angioplasty History of biopsy History of cataract surgery History of surgery Social History Social History Household Members: Significant Other Housing: Apartment Do you presently have visiting nurse or other home services: Yes Alcohol intake: never Patient Tobacco Use Status: Former Tobacco user Use of substances other than those prescribed or required for medical reasons: No Have you been hit, kicked, punched, or otherwise hurt by someone within the past year? If so, by whom?: No Do you feel safe in your current relationship?: Yes Is there a partner from a previous relationship who is making you feel unsafe now?: No Are you made to feel afraid or neglected: No Advance Directives: No Advance Directives Information Provided: Yes Do you have thoughts of harming others: None Do you have a plan to hurt others: No Plan Recently lost weight without trying: No Nutrition Risks: No Nutritional Risk Patient : No : No Poor oral hygiene: No Meds Allergies Allergy/AdvReac Type Severity Reaction Status Date / Time Penicillins Allergy Mild RASH Verified 10/24/20 20:11 penicillin V Allergy Unknown rash of Verified 10/24/20 20:11 skin Active Medications: Current Medications Generic Name Dose Route Start Last Admin Trade Name Freq PRN Reason Stop Dose Admin Acetaminophen 650 mg 01/19/21 21:39 Acetaminophen 325 Mg Tablet PO Q4H PRN PAIN OR ELEVATED TEMP Albuterol Sulfate 2 puff 01/19/21 21:39 Albuterol Sulfate 90 Mcg 8 Gm Inhaler INHALE Q4H PRN Shortness Of Breath Or Wheezing Atorvastatin Calcium 80 mg 01/20/21 21:00 Atorvastatin Calcium 80 Mg Tablet PO BEDTIME MOSHE Cyanocobalamin 1,000 mcg 01/20/21 09:00 01/20/21 09:58 Cyanocobalamin (Vitamin B-12) 1,000 Mcg Tablet PO 1,000 mcg DAILY MOSHE Administration Famotidine 20 mg 01/20/21 21:00 Famotidine 20 Mg Tablet PO BEDTIME MOSHE Fenofibrate 134 mg 01/20/21 09:00 01/20/21 09:58 Fenofibrate,Micronized 134 Mg Capsule PO 134 mg DAILY MOSHE Administration Fluticasone Propionate 2 spray 01/20/21 09:00 01/20/21 09:58 Fluticasone Propionate Nasal 16 Gm [place] NOSTRIL-B Not Given BID MOSHE Gabapentin 100 mg 01/20/21 09:00 01/20/21 09:58 Gabapentin 100 Mg Capsule PO 100 mg BID MOSHE Administration Insulin Human Lispro 0 unit 01/20/21 07:30 01/20/21 09:57 Insulin Lispro 100 Unit/Ml 3 Ml Vial SUBCUT Not Given QIDACHS COUNTS INCLUDE 234 BEDS AT THE [facility] Protocol Montelukast Sodium 10 mg 01/20/21 21:00 Montelukast Sodium 10 Mg Tablet PO BEDTIME MOSHE Ondansetron HCl 4 mg 01/19/21 18:37 Ondansetron Hcl 4 Mg/2 Ml Vial IVPUSH Q8H PRN Nausea and Vomiting Paroxetine HCl 20 mg 01/20/21 09:00 01/20/21 09:58 Paroxetine Hcl 20 Mg Tablet PO 20 mg DAILY MOSHE Administration Sevelamer Carbonate 800 mg 01/20/21 21:00 Sevelamer Carbonate Tablet 800 Mg Tablet PO BEDTIME MOSHE Sevelamer Carbonate 800 mg 01/20/21 08:00 01/20/21 09:58 Sevelamer Carbonate Tablet 800 Mg Tablet PO 800 mg TIDWM MOSHE Administration Sodium Chloride 3 ml 01/20/21 00:00 01/20/21 09:58 0.9 % Sodium Chloride Flush 3 Ml Syringe IVFLUSH 3 ml QSHIFT COUNTS INCLUDE 234 BEDS AT THE [facility] Administration Vitamin D 25 mcg 01/20/21 09:00 01/20/21 09:58 Cholecalciferol (Vitamin D3) 25 Mcg Tablet PO 25 mcg DAILY COUNTS INCLUDE 234 BEDS AT THE [facility] Administration Home Medications Medication Instructions Recorded Confirmed Last Taken Type albuterol sulfate 90 mcg/actuation 2 puff INHALATION Q4H PRN g 06/30/20 01/19/21 10/24/20 History aerosol inhaler cholecalciferol (vitamin D3) 25 25 mcg PO DAILY 06/30/20 01/19/21 10/24/20 History mcg (1,000 unit) capsule fenofibrate micronized 134 mg 134 mg PO DAILY 06/30/20 01/19/21 10/24/20 History capsule fluticasone propionate 50 2 spray INTRANASAL BID 06/30/20 01/19/21 10/24/20 History mcg/actuation nasal spray,suspension sevelamer carbonate 800 mg tablet 800 mg PO TIDWMEAL tab 06/30/20 01/19/21 10/24/20 History losartan 25 mg tablet 25 mg PO DAILY tab 08/26/20 01/19/21 10/24/20 History Trulicity 1.5 mg SUBCUT MO 01/19/21 01/19/21 Unknown History acetaminophen [Tylenol] 650 mg PO Q4H PRN 01/19/21 01/19/21 Unknown History atorvastatin 80 mg PO BEDTIME 01/19/21 01/19/21 Unknown History calcitriol 0.5 mcg PO Q48H 01/19/21 01/19/21 01/17/21 History cyanocobalamin (vitamin B-12) 1,000 mcg PO DAILY 01/19/21 01/19/21 Unknown History [Vitamin B-12] ferrous sulfate [Feosol] 325 mg PO DAILY 01/19/21 01/19/21 Unknown History gabapentin 1 cap PO BID 01/19/21 01/19/21 Unknown History insulin lispro 1 sliding scale dose SUBCUT TIDAC 01/19/21 01/19/21 Unknown History metoprolol succinate [Toprol XL] 75 mg PO DAILY 01/19/21 01/19/21 Unknown History mometasone-formoterol [Dulera] 2 puff INHALATION BID 01/19/21 01/19/21 Unknown History montelukast 10 mg PO BEDTIME 01/19/21 01/19/21 Unknown History nitroglycerin [Nitrostat] 0.4 mg SUBLINGUAL Q5M PRN 01/19/21 01/19/21 Unknown History omega-3 acid ethyl esters 2 cap PO BID 01/19/21 01/19/21 Unknown History paroxetine HCl 20 mg PO DAILY 01/19/21 01/19/21 Unknown History sevelamer carbonate 800 mg PO BEDTIME 01/19/21 01/19/21 Unknown History ticagrelor [Brilinta] 1 tab PO BID 01/19/21 01/19/21 Unknown History Physical Exam Vital Signs: Vital Signs: Last Vital Signs Temp 98.0 F 01/20/21 04:00 Pulse 76 01/20/21 04:00 Resp 16 01/20/21 04:00 BP 120/38 L 01/20/21 08:00 Pulse Ox 96 01/20/21 04:00 Body Mass Index 26.9 Const: General: cooperative, comfortable, no acute distress, alert, awake, ill appearing and tired appearing Nutritional Appearance: average body habitus and other (Frail elderly woman) Orientation/consciousness: patient oriented x3 HENMT: Head: Yes normocephalic and Yes atraumatic Neck: Neck: Yes trachea midline, Yes supple and Yes no JVD Carotids: delayed carotid upstroke Resp: Effort & Inspection: decreased respiratory effort Auscultation: clear to auscultation bilaterally, no crackles, no wheezes and diminished lung sounds Cardio: Jugular venous distension: no JVD Palpation: normal PMI Rate: regular rate Rhythm: regular rhythm Heart sounds: S1 normal heart sound present, no click, no gallops, Murmur heart sound present systolic late, decrescendo, crescendo, at the right sternal border and other (Radiating to carotids) and Other heart sounds present (Absent S2) GI: Auscultation: normal bowel sounds Skin: General skin exam: no rashes or lesions noted and ecchymosis Neuro: General: patient oriented x3 and no focal motor deficits Extrem: General: Yes no clubbing, cyanosis or edema Results Labs and Meds Result diagrams: 01/20/21 08:11 01/20/21 08:11 Lab results: Laboratory Results - last 24 hr 01/19/21 01/19/21 01/19/21 15:55 15:55 15:55 WBC 10.1 RBC 3.55 L Hgb 11.8 L Hct 37.3 MCV 105.1 H MCH 33.2 H MCHC 31.6 RDW 15.8 Plt Count 265 MPV 10.8 Immature Gran % (Auto) 1.1 H Neut % (Auto) 66.1 Lymph % (Auto) 23.2 [place] % (Auto) 7.9 Eos % (Auto) 1.4 Baso % (Auto) 0.3 Lymph # (Auto) 2.4 [place] # (Auto) 0.8 Eos # (Auto) 0.1 Baso # (Auto) 0.0 Abs Immat Gran (auto) 0.11 H Absolute Neuts (auto) 6.7 Absolute Nucleated RBC 0.000 Nucleated RBC % (auto) 0.0 Smear Tech's Comments VERIFIED PT INR APTT Sodium 136 Potassium 4.8 Chloride 98 Carbon Dioxide 26 Anion Gap 17 BUN 19 H D Creatinine 4.35 H* Estim Creat Clear Calc 10.0 Estimated GFR 10 POC Glucose Random Glucose 104 Calcium 8.8 Magnesium 2.1 Total Bilirubin 0.8 Direct Bilirubin 0.5 AST 48 H D ALT 26 Alkaline Phosphatase 110 Troponin I High Sens 626.4 H* B-Natriuretic Peptide Total Protein 7.1 D Albumin 3.3 L D Blood Type Antibody Screen 01/19/21 01/19/21 01/19/21 15:55 15:55 18:58 WBC RBC Hgb Hct MCV MCH MCHC RDW Plt Count MPV Immature Gran % (Auto) Neut % (Auto) Lymph % (Auto) [place] % (Auto) Eos % (Auto) Baso % (Auto) Lymph # (Auto) [place] # (Auto) Eos # (Auto) Baso # (Auto) Abs Immat Gran (auto) Absolute Neuts (auto) Absolute Nucleated RBC Nucleated RBC % (auto) Smear Tech's Comments PT 14.1 H INR 1.2 H APTT 34.0 Sodium Potassium Chloride Carbon Dioxide Anion Gap BUN Creatinine Estim Creat Clear Calc Estimated GFR POC Glucose Random Glucose Calcium Magnesium Total Bilirubin Direct Bilirubin AST ALT Alkaline Phosphatase Troponin I High Sens 664.1 H* B-Natriuretic Peptide 393 H Total Protein Albumin Blood Type Antibody Screen 01/20/21 01/20/21 01/20/21 08:10 08:11 08:11 WBC 11.1 H RBC 3.39 L Hgb 11.4 L Cancelled Hct 35.4 L Cancelled MCV 104.4 H MCH 33.6 H MCHC 32.2 RDW 15.9 Plt Count 294 MPV 10.8 Immature Gran % (Auto) Neut % (Auto) Lymph % (Auto) [place] % (Auto) Eos % (Auto) Baso % (Auto) Lymph # (Auto) [place] # (Auto) Eos # (Auto) Baso # (Auto) Abs Immat Gran (auto) Absolute Neuts (auto) Absolute Nucleated RBC 0.000 Nucleated RBC % (auto) 0.0 Smear Tech's Comments PT INR APTT Sodium Potassium Chloride Carbon Dioxide Anion Gap BUN Creatinine Estim Creat Clear Calc Estimated GFR POC Glucose Random Glucose Calcium Magnesium Total Bilirubin Direct Bilirubin AST ALT Alkaline Phosphatase Troponin I High Sens B-Natriuretic Peptide Total Protein Albumin Blood Type O Positive Antibody Screen NEGATIVE 01/20/21 01/20/21 08:11 08:38 WBC RBC Hgb Hct MCV MCH MCHC RDW Plt Count MPV Immature Gran % (Auto) Neut % (Auto) Lymph % (Auto) [place] % (Auto) Eos % (Auto) Baso % (Auto) Lymph # (Auto) [place] # (Auto) Eos # (Auto) Baso # (Auto) Abs Immat Gran (auto) Absolute Neuts (auto) Absolute Nucleated RBC Nucleated RBC % (auto) Smear Tech's Comments PT INR APTT Sodium 134 L Potassium 4.8 Chloride 99 Carbon Dioxide 25 Anion Gap 15 BUN 34 H D Creatinine 6.00 H* Estim Creat Clear Calc 7.3 Estimated GFR 7 POC Glucose 97 Random Glucose 104 Calcium 8.6 Magnesium Total Bilirubin Direct Bilirubin AST ALT Alkaline Phosphatase Troponin I High Sens B-Natriuretic Peptide Total Protein Albumin Blood Type Antibody Screen EKG shows normal sinus rhythm with right bundle-branch block with LVH with diffuse ST T wave changes which could be related to repolarization abnormality as well as ischemia Imaging Radiologist's impression: Impressions Chest X-Ray 01/19/21 12:57 IMPRESSION: No evidence for acute disease in the chest. Head CT 01/19/21 13:06 IMPRESSION: No acute intracranial findings. Age-appropriate prominence of the ventricles and extra-axial CSF spaces and periventricular white matter disease. Sinusitis, most severe in the left maxillary sinus, similar to previous exam. Assessment and Plan (1) Elevated troponin: Status: Acute Patient has elevated troponin but flat, most likely reason for myocardial injury is hyper perfusion and low blood pressure related to bleeding fistula. Close attention to adequate hemostasis after dialysis needs to be paid especially given that she is on now Brilinta as well as aspirin. This will lead to reduce hospitalization due to bleeding as well as hypoperfusion due to low blood pressure. I do not think she is having an acute coronary syndrome at this point time she has no cardiac symptoms like she had in September. Continue aggressive medical management for coronary artery disease, see below. (2) Syncope: Status: Acute Syncope which is concerning again appears to be related to cerebral hypoperfusion related to bleeding and low blood pressure. She does run lower blood pressure of bleeding is likely that she had central hypertension. However focal neurologic findings are concerning and given her diffuse vascular disease likely that she has bilateral carotid disease. Would suggest carotid duplex to assess for the same. This should be done prior to her discharge today. If her blood pressure remains low and especially on dialysis day consider adding low-dose midodrine therapy to her regimen. Also consider stopping her losartan and allow for permissive hypertension up to systolic 140 mm of mercury to allow for adequate safety margin and avoid recurrent syncope due to cerebral hypoperfusion. Advised to maintain adequate oral hydration for her. She has received bunch of IV fluids overnight would hold off on IV fluid resuscitation (3) Coronary artery disease: Qualifiers: Coronary Disease-Associated Artery/Lesion type: bypass graft [place] vs. transplanted heart: [place] heart Associated angina: with stable angina Qualified Code(s): I25.708 - Atherosclerosis of coronary artery bypass graft(s), unspecified, with other forms of angina pectoris Status: Acute CAD with diffuse coronary artery disease with complex coronary artery disease with multiple coronary interventions in the past most recently to the circumflex artery for restenoses which was suspected to be due to prior improper deployment of prior stent. She also has residual significant LAD disease which was hemodynamically significant and RCA disease which was not hemodynamically significant. Currently not having active anginal symptoms or acute coronary syndrome. Will continue to manage medically. Continue Toprol therapy. Continue high-intensity statin therapy. Avoid hypotension. Continue aggressive management of diabetes. Overall prognosis is limited given her poor functional status as well as recurrent hospitalization with diffuse vascular disease and end-stage renal disease. Will follow up in the clinic in 2-4 weeks time. Thank you for allowing me to partake in the care Procedures Date of Service Date of Service: 01/20/21
[2021-01-20 12:13] LABS: Glucose, Whole Blood 140 mg/dL (60-115)
--- NOTE | 2021-01-20 12:29 | MHC.CM.PN ---
IMM 01/20/2021, EMR REVIEWED PT ADMITTED W/SYNCOPE AND BLEEDING FROM FISTULA, CM MET W/PT WHO IS A&O, PT REPORTS SHE LIVES W/HER S.O., USES A FRONT WHEELED WALKER AND NO OTHER DME, NO HOME SERVICES. PT VERIFIES PCP, HCP AND COPY HAS BEEN REQUESTED [facility] IS ON FILE FROM PREVIOUS VISIT. PT REPORTS SHE MAY WANT A VNA UPON D/C BUT ALSO REPORTS IT DEPENDS ON HOW SHE FEELS. D/C PLAN HOME VS HOME W/VNA, PT WILL NEED TRANSPORT PCP: SHELLEY MENDEZ HCP: JONATHAN RIVERS (S.O.) [phone] OSCAR PARRA, PT DOES NOT HAVE PHONE OR PHONE NUMBER
--- NOTE | 2021-01-20 12:50 | PM.EVENT ---
Event Note Date of Service: 01/20/21 Event Note: Pt seen and examind Full consult to follow Will arrange for HD in AM - Inpatient
[2021-01-20 16:19] LABS: Glucose, Whole Blood 99 mg/dL (60-115)
[2021-01-20 18:39] LABS: Cholesterol 88 mg/dL; HDL Cholesterol 21 mg/dL; LDL Cholesterol Calculated 37 mg/dl; Triglycerides 154 mg/dL
[2021-01-20 20:19] LABS: Glucose, Whole Blood 119 mg/dL (60-115)
[2021-01-20] MEDS: Montelukast Sodium 10 MG TABLET PO (21:24)
[2021-01-20] MEDS: Famotidine 20 MG TABLET PO (21:24)
[2021-01-20] MEDS: Atorvastatin Calcium 80 MG TABLET PO (21:24)
[2021-01-20] MEDS: Acetaminophen 325 MG TABLET 650 MG PO (21:29)
[2021-01-21 03:22] VITALS: BP 134/45; PULSE 71; RESP 16; TEMP 36.3; O2SAT 95
[2021-01-21 06:26] LABS: Hematocrit 32.6 % (37-47); Hemoglobin 10.6 g/dl (12.0-16.0); Mean Corpuscular HGB Conc 32.5 g/dl (31.0-35.0); Mean Corpuscular Hemoglobin 33.3 pg (27.0-33.0); Mean Corpuscular Volume 102.5 fL (80-98); Mean Platelet Volume 10.7 fL (9.4-12.3); Platelet Count 282 X10*3/uL (160-400); Red Blood Count 3.18 X10*6/uL (4.20-5.50); Red Cell Distribution Width 15.5 % (11.0-16.0); White Blood Count 11.9 X10*3/uL (4.8-10.8)
[2021-01-21] MEDS: Acetaminophen 325 MG TABLET 650 MG PO ×2 (07:20→16:09)
[2021-01-21 07:21] VITALS: BP 118/51; PULSE 65; RESP 17; TEMP 36.4; O2SAT 96
[2021-01-21] MEDS: 0.9 % Sodium Chloride Flush 3 ML SYRINGE IVFLUSH ×2 (07:21→16:09)
[2021-01-21 07:25] LABS: Glucose, Whole Blood 98 mg/dL (60-115)
[2021-01-21 07:44] LABS: Anion Gap 17 (12-20); Blood Urea Nitrogen 54 mg/dL (9-16); Calcium 8.7 mg/dL (8.4-10.2); Carbon Dioxide 22 mmol/L (22-29); Chloride 98 mmol/L (96-108); Creatinine Clr Calc Pharmacy 5.6; Estimated Glomerular Filt Rate 5; Glucose Random 92 mg/dL (60-115); Potassium 5.4 mmol/L (3.3-5.1); Sodium 132 mmol/L (135-145)
--- NOTE | 2021-01-21 12:31 | MHC.CM.PN ---
dc plan is for pt to return to [facility] when dcd
--- NOTE | 2021-01-21 15:45 | PM.DS ---
DS: Providers Provider Date of Service: 01/21/21 Date of admission: 01/19/21 18:38 Primary care physician: Mesha Rogel MD Consults: 01/19/21 18:41 Consult to Cardiology Routine Consulting Provider: Simon Marinelli Reason for consultation: elevated trop Has provider been notified: Yes 01/19/21 19:05 Consult to Nephrology Routine Consulting Provider: Rolando Pulido Reason for consultation: ckd on hd Has provider been notified: No DS: Diagnosis Discharge Diagnosis (1) Elevated troponin: Status: Acute (2) ESRD (end stage renal disease) on dialysis: Status: Acute (3) Syncope: Status: Acute DS: Medications Discharge Medications Home Medications: Home Medications Medication Instructions Recorded Confirmed albuterol sulfate 90 mcg/actuation 2 puff INHALATION Q4H PRN g 06/30/20 01/19/21 aerosol inhaler cholecalciferol (vitamin D3) 25 25 mcg PO DAILY 06/30/20 01/19/21 mcg (1,000 unit) capsule fenofibrate micronized 134 mg 134 mg PO DAILY 06/30/20 01/19/21 capsule fluticasone propionate 50 2 spray INTRANASAL BID 06/30/20 01/19/21 mcg/actuation nasal spray,suspension sevelamer carbonate 800 mg tablet 800 mg PO TIDWMEAL tab 06/30/20 01/19/21 losartan 25 mg tablet 25 mg PO DAILY tab 08/26/20 01/19/21 Trulicity 1.5 mg SUBCUT MO 01/19/21 01/19/21 acetaminophen [Tylenol] 650 mg PO Q4H PRN 01/19/21 01/19/21 atorvastatin 80 mg PO BEDTIME 01/19/21 01/19/21 calcitriol 0.5 mcg PO Q48H 01/19/21 01/19/21 cyanocobalamin (vitamin B-12) 1,000 mcg PO DAILY 01/19/21 01/19/21 [Vitamin B-12] ferrous sulfate [Feosol] 325 mg PO DAILY 01/19/21 01/19/21 gabapentin 1 cap PO BID 01/19/21 01/19/21 insulin lispro 1 sliding scale dose SUBCUT TIDAC 01/19/21 01/19/21 metoprolol succinate [Toprol XL] 75 mg PO DAILY 01/19/21 01/19/21 mometasone-formoterol [Dulera] 2 puff INHALATION BID 01/19/21 01/19/21 montelukast 10 mg PO BEDTIME 01/19/21 01/19/21 nitroglycerin [Nitrostat] 0.4 mg SUBLINGUAL Q5M PRN 01/19/21 01/19/21 omega-3 acid ethyl esters 2 cap PO BID 01/19/21 01/19/21 paroxetine HCl 20 mg PO DAILY 01/19/21 01/19/21 sevelamer carbonate 800 mg PO BEDTIME 01/19/21 01/19/21 ticagrelor [Brilinta] 1 tab PO BID 01/19/21 01/19/21 Previous Rx's Medication Instructions Recorded aspirin 81 mg tablet,delayed 81 mg PO DAILY #90 tab 07/19/20 release famotidine 20 mg tablet 20 mg PO BEDTIME #90 tab 09/20/20 DS: Summary Hospital Course Hospital Course: 75-year-old female patient with past medical history significant for end-stage renal disease, coronary artery disease, status post [id number] myocardial infarction, status post recent bowel surgery, presented to [facility] after she had a syncopal episode associated with slurred speech and left-sided facial droop and was noted to have bleeding from fistula of left arm. Hospital Course: Patient initially admitted due to syncope and elevated troponin: Seen by Cardiology: Syncope was thought to be related to hypoperfusion related to bleeding and low blood pressure subsequently patient's blood pressure medications including losartan, metoprolol and Imdur was on hold and patient blood pressure seems to be significantly improved with patient also received fluid in ED and also a dose of midodrine initially, holding above medications: She has tolerated the dialysis today, we will stop the losartan for now and continue metoprolol and Imdur. Discussed with Nephrology in detail. Carotid study seems fine except has some left subclavian artery possible stenosis(discussion with radiology): Follow-up with vacular outpatienntly for further management. As far as AV fistula bleeding is concerned patient is to be paid close attention during the dialysis since the patient is on aspirin and Brilinta also. h/h stable around 10.6 Patient was seen by Nephrology and dialysis given today patient tolerated well and going home. Above management discussed with the patient in detail length she understand and in agreement with the above plan, time spent 50 minutes and 50% time spent on counseling. Significant findings: As above. Procedures performed: None. Treatment and response: As above. Complications: None. Time Spent with Patient Time attestation: Total time spent providing and/or coordinating discharge services: Discharge coordination time: Greater than 30 minutes Quality: Stroke Does the patient have a stroke diagnosis?: No Physical Exam Vital Signs: Vital Signs: Last Vital Signs Temp 97.6 F 01/21/21 07:21 Pulse 65 01/21/21 07:21 Resp 17 01/21/21 07:21 BP 118/51 L 01/21/21 07:21 Pulse Ox 96 01/21/21 07:21 Body Mass Index 26.9 Cvs: rrr, [id number] , no murmur res: clear to auscultation ,no rhonchii or wheezing abd: no rebound or guarding ,nt, bs present. ext pulses present , no cyanosis skin: fistula area seems clean .has dressing , no overt bleeding neuro: axo3 , nonfocal DS: Data Data Completed and Pending Labs on day of discharge: Laboratory Results - last 24 hr 01/20/21 01/20/21 01/20/21 16:13 18:08 20:15 WBC RBC Hgb Hct MCV MCH MCHC RDW Plt Count MPV Absolute Nucleated RBC Nucleated RBC % (auto) Sodium Potassium Chloride Carbon Dioxide Anion Gap BUN Creatinine Estim Creat Clear Calc Estimated GFR POC Glucose 99 119 H Random Glucose Calcium Triglycerides 154 Cholesterol 88 LDL Cholesterol, Calc 37 HDL Cholesterol 01/21/21 01/21/21 01/21/21 06:01 06:01 07:18 WBC 11.9 H RBC 3.18 L Hgb 10.6 L Hct 32.6 L MCV 102.5 H MCH 33.3 H MCHC 32.5 RDW 15.5 Plt Count 282 MPV 10.7 Absolute Nucleated RBC 0.000 Nucleated RBC % (auto) 0.0 Sodium 132 L Potassium 5.4 H Chloride 98 Carbon Dioxide 22 Anion Gap 17 BUN 54 H D Creatinine 7.73 H* Estim Creat Clear Calc 5.6 Estimated GFR 5 POC Glucose 98 Random Glucose 92 Calcium 8.7 Triglycerides Cholesterol LDL Cholesterol, Calc HDL Cholesterol Discharge Plan Discharge Patient Disposition: [facility] Discharge Diagnosis: Elevated troponin, syncope, bleeding at the AV fistula site. Referrals: michael castro [Other] - 1 Week Po,Mesha Castillo MD [Primary Care Provider] - 1 Week Discharge Medications: Continued famotidine 20 mg tablet 20 mg PO BEDTIME Qty: 90 RF: 2 calcitriol 0.5 mcg Capsule 0.5 mcg PO Q48H RF: 0 acetaminophen [Tylenol] 325 mg Tablet 650 mg PO Q4H PRN (Reason: PAIN OR ELEVATED TEMP) RF: 0 cyanocobalamin (vitamin B-12) [Vitamin B-12] 1,000 mcg Tablet 1,000 mcg PO DAILY RF: 0 ferrous sulfate [Feosol] 325 mg (65 mg iron) Tablet 325 mg PO DAILY RF: 0 nitroglycerin [Nitrostat] 0.4 mg Tablet, Sublingual 0.4 mg SUBLINGUAL Q5M PRN (Reason: Angina) RF: 0 gabapentin 100 mg capsule 1 cap PO BID RF: 0 metoprolol succinate [Toprol XL] 25 mg Tablet Extended Release 24 Hr 75 mg PO DAILY RF: 0 insulin lispro 100 unit/mL Solution 1 sliding scale dose SUBCUT TIDAC RF: 0 sevelamer carbonate 800 mg tablet 800 mg PO BEDTIME RF: 0 Dulera 200-5 mcg/actuation HFA aerosol inhaler 2 puff inhalation BID RF: 0 Brilinta 90 mg tablet 1 tab PO BID RF: 0 atorvastatin 80 mg tablet 80 mg PO BEDTIME RF: 0 paroxetine HCl 20 mg tablet 20 mg PO DAILY RF: 0 montelukast 10 mg tablet 10 mg PO BEDTIME RF: 0 omega-3 acid ethyl esters 1 gram capsule 2 cap PO BID RF: 0 Trulicity 1.5 mg/0.5 mL pen injector 1.5 mg subcut MO RF: 0 fenofibrate micronized 134 mg capsule 134 mg PO DAILY RF: 0 albuterol sulfate [ProAir HFA] 90 mcg/actuation HFA aerosol inhaler 2 puff inhalation Q4H PRN (Reason: Shortness Of Breath Or Wheezing) RF: 0 fluticasone propionate 50 mcg/actuation spray,suspension 2 spray intranasal BID RF: 0 cholecalciferol (vitamin D3) 25 mcg (1,000 unit) capsule 25 mcg PO DAILY RF: 0 sevelamer carbonate 800 mg tablet 800 mg PO TIDWMEAL RF: 0 aspirin 81 mg tablet,delayed release (DR/EC) 81 mg PO DAILY Qty: 90 RF: 1 Discontinued losartan 25 mg tablet 25 mg PO DAILY RF: 0 Hold Instructions: Resume on 11/01/20. [place] [facility] [place]charge Orders: Discharge Order (Routine); Ordered 01/21/21 Ordered By: Suzanna Bustamante Diet: advance to usual diet Activity on Discharge: As tolerated Stand Alone Forms: Patient Portal Discharge page Care Plan Goals: Patient initially admitted due to syncope and elevated troponin: Seen by Cardiology: Syncope was thought to be related to hypoperfusion related to bleeding and low blood pressure subsequently patient's blood pressure medications including losartan, metoprolol and Imdur was on hold and patient blood pressure seems to be significantly improved in addition patient also received fluid in ED and also a dose of midodrine initially: She has tolerated the dialysis today, we will stop the losartan for now and continue metoprolol and Imdur. As far as AV fistula bleeding is concerned patient is to be paid close attention during the dialysis since the patient is on aspirin and Brilinta also. Patient was seen by Nephrology and dialysis given today patient tolerated well and going home. Health Concerns: As above. Plan of Treatment: As above. Assessment: As above. Discharge Date/Time: 01/21/21 18:09
[2021-01-21 16:00] VITALS: BP 128/62; PULSE 75; RESP 15; TEMP 36.3; O2SAT 97
[2021-01-21] MEDS: Cholecalciferol (Vitamin D3) 25 MCG TABLET PO (16:07)
[2021-01-21] MEDS: Cyanocobalamin (Vitamin B-12) 1,000 MCG TABLET 1000 MCG PO (16:07)
[2021-01-21] MEDS: PARoxetine HCL 20 MG TABLET PO (16:07)
[2021-01-21] MEDS: Fenofibrate,Micronized 134 MG CAPSULE PO (16:08)
[2021-01-21] MEDS: Sevelamer Carbonate Tablet 800 MG TABLET PO (16:09)
[2021-01-21 16:16] LABS: Glucose, Whole Blood 99 mg/dL (60-115)
--- NOTE | 2021-01-21 16:21 | MHC.CM.PN ---
pt to be transferred at 5;30 to [facility] ,pts hcp notified of dc
--- NOTE | 2021-01-21 17:53 | PC.NURSE ---
fistula site dressing to left arm CDI. No bleeding
--- NOTE | 2021-01-24 11:33 | CONS_ITS ---
DATE OF SERVICE: 01/20/2021 REASON FOR CONSULTATION: Consult requested by the medical team to evaluate and help in management of the patient's end-stage renal disease, who is presented to the hospital with syncopal episode. HISTORY OF PRESENT ILLNESS: The patient is a 75-year-old female with past medical history of ESRD on hemodialysis on Sunday, Sunday, Sunday; history of aortic stenosis; CHF; coronary artery disease, non-ST elevation AL; who was recently admitted to [facility] in September 2020; diagnosed to have non ST elevation AL and was treated and transferred to [facility]. There was intervention done. She did have ileostomy and colon resection. Patient was apparently receiving hemodialysis yesterday and sent back to [facility], where she had bleeding from her left AV fistula. She was sitting on a wheelchair and then passed out. She was brought into the hospital for further evaluation. She did not have any symptoms like chest pain, palpitations, lightheadedness, or dizziness. She was brought into the hospital and the patient was evaluated in the ER and she had a CT scan of the head without contrast, which showed no acute intracranial hemorrhage. There was sinusitis. A workup showed patient's troponin level was 626. She had a Surgicel placed in the fistula site and bleeding stopped. Renal consult has been requested to help with management of ESRD. PAST MEDICAL HISTORY: ESRD on hemodialysis Sunday, Sunday, Sunday; history of aortic stenosis; history of CHF; coronary artery disease; history of non-ST elevation AL in the past; history of hyperlipidemia. PAST SURGICAL HISTORY: Colectomy and recent ileostomy at [facility], AV fistula placement in the past. FAMILY HISTORY: Parents are . Mother had bladder CA. Maternal aunt had colon CA and patient's aunt had colon CA. PERSONAL AND SOCIAL HISTORY: Patient denies alcohol use. Is a former smoker. Currently resides in a nursing facility. HOME MEDICATIONS: Reviewed. PHYSICAL EXAMINATION: GENERAL: Patient is resting in the bed. Awake, alert, oriented x3. No significant distress. VITAL SIGNS: Blood pressure was 96/26, pulse 76, afebrile. HEENT: Pupils equal bilaterally and reactive to light. No jugular venous distention. NECK: Supple. No thyromegaly is noted. Mucosa are moist. There is no scleral icterus or conjunctival congestion. CARDIOVASCULAR SYSTEM: S1, S2 without rub or murmur. RESPIRATORY SYSTEM: Air entry decreased in the bases. No crepitation or rhonchi is noted. ABDOMEN: Soft, nontender. No guarding. No rigidity. Bowel sounds normal. UPPER EXTREMITY: AV fistula without any bleeding, but there was Surgicel in place. NEURO: Essentially nonfocal. LABS: Done today. WBCs 11.1, hemoglobin 11.4, hematocrit 35.4, platelets were 294. INR 1.2. Sodium was 134, potassium 4.8, chloride 99, CO2 25, BUN 34, creatinine 6, estimated GFR 7.3, glucose 119, calcium 8.6, cholesterol was 88. IMPRESSION: 1. Elderly female with end-stage renal disease on hemodialysis, admitted with bleeding AV fistula, which is resolved. 2. Syncope with elevated troponin. Workup is in progress. 3. Hypotension post dialysis. 4. History of hypertension at baseline. 5. Type 2 diabetes mellitus. RECOMMENDATIONS: At this juncture, the patient is getting a workup for her syncope. She has been evaluated by Cardiology. Her AV fistula bleeding has stopped. During dialysis tomorrow, we will try to use a smaller gauge needle. We will watch for post dialysis bleeding in a.m. In the meantime, we should continue with the patient's phosphate binders. She is on Renvela. The patient's hemoglobin level is stable at 11.4 and there is no need for erythropoietin injections. Thank you for allowing me to participate in medical management of the patient. MD ADE Alvarado/JERMAINE / [id number]
== END 2021-01-21 18:09 | disposition skilled nursing facility (03) | DRG 314 ==
LOC: HO.ED 12:24 → HO.EDOVER 18:50 → HO.S3 01-20 06:28
PROVIDERS: Physician Assistant; Admitting Provider Hospitalist; Emergency Provider Emergency Medicine Emergency Medical Services; PCP Internal Medicine; Visit Provider Internal Medicine
DX: T82.838A Hemorrhage due to vascular prosthetic devices, implants and grafts, initial encounter (principal); N18.6 End stage renal disease; I13.2 Hypertensive heart and chronic kidney disease with heart failure and with stage 5 chronic kidney disease, or end stage renal disease; E11.22 Type 2 diabetes mellitus with diabetic chronic kidney disease; E78.5 Hyperlipidemia, unspecified; I25.2 Old myocardial infarction; R79.89 Other specified abnormal findings of blood chemistry; I77.1 Stricture of artery; Z87.891 Personal history of nicotine dependence; Z88.0 Allergy status to penicillin; Z99.2 Dependence on renal dialysis; Z79.4 Long term (current) use of insulin; Z79.51 Long term (current) use of inhaled steroids; Z79.82 Long term (current) use of aspirin; Z79.899 Other long term (current) drug therapy; Z66 Do not resuscitate
CPT/HCPCS: 36415; 70450; 71045; 80048; 80061; 80076; 82947; 83735; 83880; 84484; 85025; 85027; 85610; 85730; 86850; 86900; 86901; 90999; 93005; 93880; 99285

== ENCOUNTER 2021-01-24 08:09 | Outpatient (REF) | payer MEDICARE, SELFPAY ==
[2021-01-24 06:40] LABS: Hematocrit 33.5 % (37-47); Hemoglobin 10.6 g/dl (12.0-16.0); Mean Corpuscular HGB Conc 31.6 g/dl (31.0-35.0); Mean Corpuscular Hemoglobin 33.1 pg (27.0-33.0); Mean Corpuscular Volume 104.7 fL (80-98); Mean Platelet Volume 11.1 fL (9.4-12.3); Platelet Count 268 X10*3/uL (160-400); Red Cell Distribution Width 15.1 % (11.0-16.0); White Blood Count 14.7 X10*3/uL (4.8-10.8)
[2021-01-24 07:40] LABS: Anion Gap 19 (12-20); Blood Urea Nitrogen 58 mg/dL (9-16); Calcium 8.1 mg/dL (8.4-10.2); Carbon Dioxide 19 mmol/L (22-29); Chloride 97 mmol/L (96-108); Estimated Glomerular Filt Rate 4; Glucose Random 86 mg/dL (60-115); Potassium 5.4 mmol/L (3.3-5.1); Sodium 130 mmol/L (135-145)
== END 2021-01-24 08:10 | disposition home or self-care (01) ==
LOC: HO.MMNH1L 08:09
PROVIDERS: Visit Provider Family Medicine
DX: N18.6 End stage renal disease (principal); Z99.2 Dependence on renal dialysis
CPT/HCPCS: 36415; 80048; 85027

== ENCOUNTER 2021-01-31 21:20 | Outpatient (REF) | payer MEDICARE, SELFPAY ==
[2021-01-31 06:45] LABS: Hematocrit 29.3 % (37-47); Hemoglobin 9.3 g/dl (12.0-16.0); Mean Corpuscular HGB Conc 31.7 g/dl (31.0-35.0); Mean Corpuscular Hemoglobin 33.2 pg (27.0-33.0); Mean Corpuscular Volume 104.6 fL (80-98); Mean Platelet Volume 11.5 fL (9.4-12.3); Platelet Count 284 X10*3/uL (160-400); White Blood Count 13.2 X10*3/uL (4.8-10.8)
[2021-01-31 07:41] LABS: Anion Gap 17 (12-20); Blood Urea Nitrogen 55 mg/dL (9-16); Calcium 8.4 mg/dL (8.4-10.2); Carbon Dioxide 22 mmol/L (22-29); Chloride 96 mmol/L (96-108); Estimated Glomerular Filt Rate 5; Glucose Random 115 mg/dL (60-115); Potassium 5.7 mmol/L (3.3-5.1); Sodium 129 mmol/L (135-145)
== END 2021-01-31 21:21 | disposition home or self-care (01) ==
LOC: HO.MMNH1L 21:20
PROVIDERS: Visit Provider Family Medicine
DX: N18.6 End stage renal disease (principal)
CPT/HCPCS: 36415; 80048; 85027

== ENCOUNTER 2021-02-07 00:20 | Outpatient (REF) | payer MEDICARE, SELFPAY ==
[2021-02-07 07:30] LABS: Hematocrit 30.3 % (37-47); Hemoglobin 9.5 g/dl (12.0-16.0); Mean Corpuscular HGB Conc 31.4 g/dl (31.0-35.0); Mean Corpuscular Hemoglobin 33.3 pg (27.0-33.0); Mean Corpuscular Volume 106.3 fL (80-98); Mean Platelet Volume 11.5 fL (9.4-12.3); Platelet Count 239 X10*3/uL (160-400); Red Blood Count 2.85 X10*6/uL (4.20-5.50); Red Cell Distribution Width 15.2 % (11.0-16.0); White Blood Count 12.8 X10*3/uL (4.8-10.8)
[2021-02-07 08:03] LABS: Anion Gap 20 (12-20); Blood Urea Nitrogen 58 mg/dL (9-16); Calcium 8.3 mg/dL (8.4-10.2); Carbon Dioxide 23 mmol/L (22-29); Chloride 94 mmol/L (96-108); Estimated Glomerular Filt Rate 5; Glucose Random 109 mg/dL (60-115); Potassium 5.6 mmol/L (3.3-5.1); Sodium 131 mmol/L (135-145)
== END 2021-02-07 00:21 | disposition home or self-care (01) ==
LOC: HO.MMNH1L 00:20
PROVIDERS: Visit Provider Family Medicine
DX: N18.6 End stage renal disease (principal)
CPT/HCPCS: 36415; 80048; 85027

== ENCOUNTER 2021-02-09 07:11 | Outpatient (REF) | payer MEDICARE, SELFPAY ==
[2021-02-09 08:42] LABS: Blood Urea Nitrogen 52 mg/dL (9-16); Estimated Glomerular Filt Rate 5
== END 2021-02-09 07:12 | disposition home or self-care (01) ==
LOC: HO.MMNH1L 07:11
PROVIDERS: Visit Provider Family Medicine
DX: N18.6 End stage renal disease (principal); Z99.2 Dependence on renal dialysis
CPT/HCPCS: 36415; 82565; 84520

== ENCOUNTER 2021-02-12 21:17 | Emergency (ER) | payer MEDICARE, SELFPAY ==
--- NOTE | ~2021-02-12 | XR_ITS ---
EXAMINATION: XR SHOULDER, RIGHT CLINICAL INFORMATION: Deformity. Fall. COMPARISON: None TECHNIQUE: AP external rotation, Grashey, scapular Y, and axillary views of the right shoulder. FINDINGS: Comminuted proximal humeral fracture with a transverse component through the humeral neck as well as a displaced fracture through the posterior aspect of the greater tuberosity. No dislocation. Small acromioclavicular and glenohumeral marginal osteophytes. No osseous erosion. Atherosclerotic calcifications. XR/XR shoulder RT min 2V IMPRESSION: Comminuted and displaced proximal humeral fracture.
--- NOTE | ~2021-02-12 | CT_ITS ---
EXAMINATION: CT HEAD WITHOUT CONTRAST CT CERVICAL SPINE WITHOUT CONTRAST CLINICAL INFORMATION: Status post fall. On blood thinners. COMPARISON: CT head 01/19/2021, 06/27/2019, cervical spine x-rays of 03/15/2012. TECHNIQUE: Multidetector volumetric CT imaging of the head and cervical spine is acquired without intravenous contrast administration. Post processing is performed at a dedicated workstation. Multiplanar reformatted images are submitted. This CT scan was performed using dose optimization techniques as appropriate to a performed exam including the following: *Automated exposure control. *Adjustment of mA and/or kV according to patient size (this includes techniques or standardized protocols for targeted exams were dose is matched to indication/reason for exam; i.e. extremities or head). *Use of iterative reconstruction technique. DLP: 684 mGy-cm and 418 mGy-cm FINDINGS: CT HEAD: There is no evidence of acute intracranial hemorrhage, midline shift or mass effect. No evidence of acute territorial infarction. No abnormal extra-axial fluid collection is noted. Kjwe-uo-prreh matter differentiation is well preserved. Moderate global volume loss is noted with proportionate dilatation of the ventricles and cortical sulci. Severe calcific atherosclerosis of the internal carotid and vertebral arteries. Large subgaleal hematoma is noted over the right anterior frontal region. No evidence of fracture of the osseous calvarium. Mastoid air cells and middle ear cavities are well aerated. Moderate circumferential mucosal thickening in the left maxillary sinus. Scattered opacification of the ethmoid air cells. CT CERVICAL SPINE: There is straightening of the cervical spine which is likely related to muscle spasm or patient positioning. The vertebral body heights and alignment are maintained. There is gmdqvyyq-he-zmdkxl narrowing of the C5-C6 and C6-C7 disc spaces with small marginal endplate osteophytes. Moderate bilateral neural foraminal stenosis is noted at C5-C6 and C6-C7. No evidence of tight central canal stenosis. Atlantoaxial and atlanto-occipital alignments are maintained. Degenerative changes are noted at the atlantoaxial articulation. The posterior elements are intact and in normal alignment. Multilevel mild bilateral facet arthropathy is noted. No significant thyroid nodule is seen. Visualized lung apices are unremarkable. CT/CT head/brain wo con IMPRESSION: HEAD: No evidence of acute intracranial hemorrhage. Large subgaleal hematoma over the right anterior frontal calvarium. CERVICAL SPINE: No evidence of acute fracture or traumatic subluxation in the cervical spine. Cervical spondylosis.
--- NOTE | ~2021-02-12 | CT_ITS ---
EXAMINATION: CT HEAD WITHOUT CONTRAST CT CERVICAL SPINE WITHOUT CONTRAST CLINICAL INFORMATION: Status post fall. On blood thinners. COMPARISON: CT head 01/19/2021, 06/27/2019, cervical spine x-rays of 03/15/2012. TECHNIQUE: Multidetector volumetric CT imaging of the head and cervical spine is acquired without intravenous contrast administration. Post processing is performed at a dedicated workstation. Multiplanar reformatted images are submitted. This CT scan was performed using dose optimization techniques as appropriate to a performed exam including the following: *Automated exposure control. *Adjustment of mA and/or kV according to patient size (this includes techniques or standardized protocols for targeted exams were dose is matched to indication/reason for exam; i.e. extremities or head). *Use of iterative reconstruction technique. DLP: 684 mGy-cm and 418 mGy-cm FINDINGS: CT HEAD: There is no evidence of acute intracranial hemorrhage, midline shift or mass effect. No evidence of acute territorial infarction. No abnormal extra-axial fluid collection is noted. Bzyp-me-cscro matter differentiation is well preserved. Moderate global volume loss is noted with proportionate dilatation of the ventricles and cortical sulci. Severe calcific atherosclerosis of the internal carotid and vertebral arteries. Large subgaleal hematoma is noted over the right anterior frontal region. No evidence of fracture of the osseous calvarium. Mastoid air cells and middle ear cavities are well aerated. Moderate circumferential mucosal thickening in the left maxillary sinus. Scattered opacification of the ethmoid air cells. CT CERVICAL SPINE: There is straightening of the cervical spine which is likely related to muscle spasm or patient positioning. The vertebral body heights and alignment are maintained. There is fexgkece-uk-dggwry narrowing of the C5-C6 and C6-C7 disc spaces with small marginal endplate osteophytes. Moderate bilateral neural foraminal stenosis is noted at C5-C6 and C6-C7. No evidence of tight central canal stenosis. Atlantoaxial and atlanto-occipital alignments are maintained. Degenerative changes are noted at the atlantoaxial articulation. The posterior elements are intact and in normal alignment. Multilevel mild bilateral facet arthropathy is noted. No significant thyroid nodule is seen. Visualized lung apices are unremarkable. CT/CT cervical spine wo con IMPRESSION: HEAD: No evidence of acute intracranial hemorrhage. Large subgaleal hematoma over the right anterior frontal calvarium. CERVICAL SPINE: No evidence of acute fracture or traumatic subluxation in the cervical spine. Cervical spondylosis.
[2021-02-12 21:28] VITALS: BP 104/32; BP 112/40; PULSE 55; PULSE 65; RESP 15; TEMP 36.6; O2SAT 95; BMI 27.1
--- NOTE | 2021-02-12 21:45 | ED_ITS ---
HPI - Fall General Chief Complaint: Fall Stated Complaint: FALL Time Seen by Provider: 02/12/21 21:36 Source: patient Mode of arrival: ambulatory Limitations: no limitations History of Present Illness HPI Narrative: Patient comes emergency room from [facility] [place], patient states that she was sitting in her wheelchair, lean over to 4 and bilateral the chair to the floor. Patient complaining of localized pain in the forehead, states she did not have loss of consciousness. Patient takes blood thinners and aspirin. Patient is on dialysis. Patient reports that she has chronic low blood pressure at baseline. Patient states that she also has right-sided shoulder pain Related Data Home Medications Medication Instructions Recorded Confirmed albuterol sulfate 90 mcg/actuation 2 puff INHALATION Q4H PRN g 06/30/20 01/19/21 aerosol inhaler (ProAir HFA) cholecalciferol (vitamin D3) 25 25 mcg PO DAILY 06/30/20 01/19/21 mcg (1,000 unit) capsule fenofibrate micronized 134 mg 134 mg PO DAILY 06/30/20 01/19/21 capsule fluticasone propionate 50 2 spray INTRANASAL BID 06/30/20 01/19/21 mcg/actuation nasal spray,suspension sevelamer carbonate 800 mg tablet 800 mg PO TIDWMEAL tab 06/30/20 01/19/21 acetaminophen 325 mg tablet 650 mg PO Q4H PRN 01/19/21 01/19/21 (Tylenol) atorvastatin 80 mg tablet 80 mg PO BEDTIME 01/19/21 01/19/21 calcitriol 0.5 mcg capsule 0.5 mcg PO Q48H 01/19/21 01/19/21 cyanocobalamin (vitamin B-12) 1,000 mcg PO DAILY 01/19/21 01/19/21 1,000 mcg tablet (Vitamin B-12) dulaglutide 1.5 mg/0.5 mL 1.5 mg SUBCUT MO 01/19/21 01/19/21 subcutaneous pen injector (Trulicity) ferrous sulfate 325 mg (65 mg 325 mg PO DAILY 01/19/21 01/19/21 iron) tablet (Feosol) gabapentin 100 mg capsule 1 cap PO BID 01/19/21 01/19/21 insulin lispro 100 unit/mL 1 sliding scale dose SUBCUT TIDAC 01/19/21 01/19/21 subcutaneous solution metoprolol succinate 25 mg 75 mg PO DAILY 01/19/21 01/19/21 tablet,extended release 24 hr (Toprol XL) mometasone-formoterol HFA 200 2 puff INHALATION BID 01/19/21 01/19/21 mcg-5 mcg/actuation aerosol inhaler (Dulera) montelukast 10 mg tablet 10 mg PO BEDTIME 01/19/21 01/19/21 nitroglycerin 0.4 mg sublingual 0.4 mg SUBLINGUAL Q5M PRN 01/19/21 01/19/21 tablet (Nitrostat) omega-3 acid ethyl esters 1 gram 2 cap PO BID 01/19/21 01/19/21 capsule paroxetine HCl 20 mg tablet 20 mg PO DAILY 01/19/21 01/19/21 sevelamer carbonate 800 mg tablet 800 mg PO BEDTIME 01/19/21 01/19/21 ticagrelor 90 mg tablet (Brilinta) 1 tab PO BID 01/19/21 01/19/21 Previous Rx's Medication Instructions Recorded aspirin 81 mg tablet,delayed 81 mg PO DAILY #90 tab 07/19/20 release famotidine 20 mg tablet 20 mg PO BEDTIME #90 tab 09/20/20 oxycodone 5 mg tablet 5 mg PO Q8H PRN #14 tab 02/13/21 Allergies Allergy/AdvReac Type Severity Reaction Status Date / Time Penicillins Allergy Mild RASH Verified 02/12/21 21:28 penicillin V Allergy Unknown rash of Verified 02/12/21 21:28 skin Review of Systems Review of Systems: Constitutional : No Weight loss, No Fever, No Chills, No Night Sweats, No Fatigue, No Malaise ENT/Mouth : No Hearing loss, No Ear Pain, No Nasal Congestion, No Sinus Pain, No Hoarseness, No sore throat, No Rhinorrhea, No Swallowing Difficulty Eyes: No Eye Pain, No Swelling, No Redness, No Foreign Body, No Discharge, No Vision Changes Cardiovascular : No Chest Pain, No SOB, No Dyspnea on Exertion, No Orthopnea, No Edema, No Palpitations Respiratory : No Cough, No Sputum, No Wheezing, No Smoke Exposure, No Dyspnea Gastrointestinal : No Nausea, No Vomiting, No Diarrhea, No Constipation, No abdominal Pain, No Hematochezia, No Melena Genitourinary : no irregular bleeding, No Dysuria, No Urinary Frequency, No Hematuria, No Urinary Incontinence, No Urgency, No Flank Pain, No Urinary Flow Changes, No Hesitancy Musculoskeletal : Complaining of right-sided shoulder pain No Myalgias, No Joint Swelling Skin : Complaining of a large bruise to the forehead Neuro : No Weakness, No Numbness, No Paresthesias, No Loss of Consciousness, No Dizziness, No Headache Psych : No Anxiety/Panic, No Depression, No SI/HI/AH/VH, No Social Issues, Heme/Lymph: Easy bruising due to blood thinners Endocrine : No Polyuria, No Polydipsia, No Temperature Intolerance FOR[facility]LY [facility] Past Medical History Medical History Anemia Aortic stenosis CHF (congestive heart failure), NYHA class I Coronary artery disease CRF (chronic renal failure) ESRD (end stage renal disease) on dialysis H/O non-ST elevation myocardial infarction (NSTEMI) Hyperlipidemia Surgical History H/O abdominal hysterectomy H/O right hemicolectomy History of angioplasty History of biopsy History of cataract surgery History of surgery Family History Family History Father No problems noted. Mother Bladder cancer Maternal Aunt Colon cancer Paternal Aunt Colon cancer Social History Social History Household Members: Significant Other Housing: Apartment Do you presently have visiting nurse or other home services: Yes Alcohol intake: never Patient Tobacco Use Status: Former Tobacco user Advance Directives: No Advance Directives Information Provided: No service: No Current occupational status: retired Physical Exam Vital Signs: Vital Signs: Last Vital Signs Temp 97.4 F 02/12/21 22:00 Pulse 76 02/13/21 00:13 Resp 16 02/13/21 00:13 BP 115/34 L 02/13/21 00:13 Pulse Ox 98 02/13/21 00:13 Body Mass Index 27.1 Const: Other: Appearance: Alert. Oriented X3. No acute distress. Eyes: Pupils equal, round and reactive to light. ENT: Pharynx normal. Neck: On C-spine precautions, no C-spine tenderness, no palpable step-offs CVS: Normal heart rate and rhythm. Pulses normal. Normal S1 and S2 Respiratory: No respiratory distress. Breath sounds normal. No Wheezing. No rales Abdomen: Soft and nontender. No rigidity. No distention. good BS x4 Skin: Skin warm and dry. Large ecchymosis above the right eyebrow on the forehead Extremities: Patient cannot move/abduct the right shoulder due to pain Neuro: Oriented X 3. No motor deficit. No sensory deficit. No slurred speech. Course Course Course Narrative: I discussed the CT scan of the head and neck with the patient, no acute findings. However, the x-ray shows a humeral fracture on the right donald e. Patient is now in a sling. I discussed the patient with MIHIR Zapien from Orthopedics, patient will have to follow as an outpatient. On arrival, labs showed a potassium level of 6.0. Patient received IV dextrose, insulin, Kayexalate, calcium gluconate, potassium is now 4.7. Patient's BUN and creatinine are at baseline, patient is due for dialysis on Sunday. Patient will be discharged to the custodial, and continue with dialysis as scheduled MDM - Fall Lab Data Result diagrams: 02/12/21 21:58 02/13/21 01:09 Labs: Lab Results 02/12/21 02/12/21 02/12/21 Range/Units 21:58 21:58 21:58 WBC 14.9 H (4.8-10.8) X10*3/uL RBC 3.06 L (4.20-5.50) X10*6/uL Hgb 10.4 L (12.0-16.0) g/dl Hct 32.0 L (37-47) % MCV 104.6 H (80-98) fL MCH 34.0 H (27.0-33.0) pg MCHC 32.5 (31.0-35.0) g/dl RDW 15.4 (11.0-16.0) % Plt Count 309 D (160-400) X10*3/uL MPV 11.0 (9.4-12.3) fL Immature Gran % (Auto) 0.7 H (0.0-0.4) % Neut % (Auto) 63.3 (45-73) % Lymph % (Auto) 21.1 (20-40) % Callaway % (Auto) 11.3 H (2-11) % Eos % (Auto) 3.4 (0-4) % Baso % (Auto) 0.2 (0-2) % Lymph # (Auto) 3.1 (1.2-4.9) X10*3/uL Callaway # (Auto) 1.7 H (0.1-1.2) X10*3/uL Eos # (Auto) 0.5 H (0.0-0.4) X10*3/uL Baso # (Auto) 0.0 (0.0-0.2) X10*3/uL Abs Immat Gran (auto) 0.10 H (0.00-0.03) X10*3/uL Absolute Neuts (auto) 9.4 H (2.0-8.3) X10*3/uL Absolute Nucleated RBC 0.000 (0.0-0.012) X10*3/uL Nucleated RBC % (auto) 0.0 (0.0-0.2) /100WBC Smear Tech's Comments VERIFIED PT 12.8 (9.9-13.0) SEC INR 1.1 (0.9-1.1) Sodium 134 L (135-145) mmol/L Potassium 6.0 H* (3.3-5.1) mmol/L Chloride 95 L (96-108) mmol/L Carbon Dioxide 26 (22-29) mmol/L Anion Gap 19 (12-20) BUN 38 H (9-16) mg/dL Creatinine 6.15 H* (0.5-1.4) mg/dL Estim Creat Clear Calc 7.1 Estimated GFR 7 POC Glucose (60-115) mg/dL Random Glucose 135 H (60-115) mg/dL Calcium 9.0 D (8.4-10.2) mg/dL Total Bilirubin 0.7 (0.0-1.0) mg/dL Direct Bilirubin 0.2 (0.0-0.5) mg/dL AST 55 H (5-31) U/L ALT 26 (0-31) U/L Alkaline Phosphatase 159 H D (39-117) U/L Total Protein 7.1 (6.5-8.0) g/dL Albumin 3.2 L (3.5-5.0) g/dL 02/12/21 02/12/21 02/13/21 Range/Units 23:14 23:48 00:38 WBC (4.8-10.8) X10*3/uL RBC (4.20-5.50) X10*6/uL Hgb (12.0-16.0) g/dl Hct (37-47) % MCV (80-98) fL MCH (27.0-33.0) pg MCHC (31.0-35.0) g/dl RDW (11.0-16.0) % Plt Count (160-400) X10*3/uL MPV (9.4-12.3) fL Immature Gran % (Auto) (0.0-0.4) % Neut % (Auto) (45-73) % Lymph % (Auto) (20-40) % Callaway % (Auto) (2-11) % Eos % (Auto) (0-4) % Baso % (Auto) (0-2) % Lymph # (Auto) (1.2-4.9) X10*3/uL Callaway # (Auto) (0.1-1.2) X10*3/uL Eos # (Auto) (0.0-0.4) X10*3/uL Baso # (Auto) (0.0-0.2) X10*3/uL Abs Immat Gran (auto) (0.00-0.03) X10*3/uL Absolute Neuts (auto) (2.0-8.3) X10*3/uL Absolute Nucleated RBC (0.0-0.012) X10*3/uL Nucleated RBC % (auto) (0.0-0.2) /100WBC Smear Tech's Comments PT (9.9-13.0) SEC INR (0.9-1.1) Sodium (135-145) mmol/L Potassium (3.3-5.1) mmol/L Chloride (96-108) mmol/L Carbon Dioxide (22-29) mmol/L Anion Gap (12-20) BUN (9-16) mg/dL Creatinine (0.5-1.4) mg/dL Estim Creat Clear Calc Estimated GFR POC Glucose 401 H* 332 H 293 H (60-115) mg/dL Random Glucose (60-115) mg/dL Calcium (8.4-10.2) mg/dL Total Bilirubin (0.0-1.0) mg/dL Direct Bilirubin (0.0-0.5) mg/dL AST (5-31) U/L ALT (0-31) U/L Alkaline Phosphatase (39-117) U/L Total Protein (6.5-8.0) g/dL Albumin (3.5-5.0) g/dL 02/13/21 Range/Units 01:09 WBC (4.8-10.8) X10*3/uL RBC (4.20-5.50) X10*6/uL Hgb (12.0-16.0) g/dl Hct (37-47) % MCV (80-98) fL MCH (27.0-33.0) pg MCHC (31.0-35.0) g/dl RDW (11.0-16.0) % Plt Count (160-400) X10*3/uL MPV (9.4-12.3) fL Immature Gran % (Auto) (0.0-0.4) % Neut % (Auto) (45-73) % Lymph % (Auto) (20-40) % Callaway % (Auto) (2-11) % Eos % (Auto) (0-4) % Baso % (Auto) (0-2) % Lymph # (Auto) (1.2-4.9) X10*3/uL Callaway # (Auto) (0.1-1.2) X10*3/uL Eos # (Auto) (0.0-0.4) X10*3/uL Baso # (Auto) (0.0-0.2) X10*3/uL Abs Immat Gran (auto) (0.00-0.03) X10*3/uL Absolute Neuts (auto) (2.0-8.3) X10*3/uL Absolute Nucleated RBC (0.0-0.012) X10*3/uL Nucleated RBC % (auto) (0.0-0.2) /100WBC Smear Tech's Comments PT (9.9-13.0) SEC INR (0.9-1.1) Sodium 133 L (135-145) mmol/L Potassium 4.7 D (3.3-5.1) mmol/L Chloride 94 L (96-108) mmol/L Carbon Dioxide 26 (22-29) mmol/L Anion Gap 18 (12-20) BUN 38 H (9-16) mg/dL Creatinine 6.30 H* (0.5-1.4) mg/dL Estim Creat Clear Calc 7.0 Estimated GFR 6 POC Glucose (60-115) mg/dL Random Glucose 260 H D (60-115) mg/dL Calcium 10.0 D (8.4-10.2) mg/dL Total Bilirubin (0.0-1.0) mg/dL Direct Bilirubin (0.0-0.5) mg/dL AST (5-31) U/L ALT (0-31) U/L Alkaline Phosphatase (39-117) U/L Total Protein (6.5-8.0) g/dL Albumin (3.5-5.0) g/dL Imaging Data Head and cervical spine CT: Radiologist's impression: No significant abnormality is noted involving the heart, lungs, mediastinum, bony thorax or soft tissues. XR/XR chest 1V IMPRESSION: Unremarkable examination. ? Right shoulder x-ray: Radiologist's impression: Comminuted proximal humeral fracture with a transverse component through the humeral neck as well as a displaced fracture through the posterior aspect of the greater tuberosity. No dislocation. Small acromioclavicular and glenohumeral marginal osteophytes. No osseous erosion. Atherosclerotic calcifications.? XR/XR shoulder RT min 2V IMPRESSION: Comminuted and displaced proximal humeral fracture. Critical Care Time Critical Care Time Critical Care Time: Yes Total Critical Care Time: 60 Attestation: 60 minutes were spent in direct patient care, stabilization. Discharge Plan Discharge Clinical Impression: Acute hyperkalemia, Fall, Traumatic hematoma of forehead, Closed right humeral fracture Patient Disposition: Home, Self-Care Instructions: Arm Fracture in Adults (ED), Hyperkalemia (ED), Fall Prevention (ED) Additional Instructions: Please follow-up with your primary care physician tomorrow. Please call Orthopedics to schedule an appointment. you have any worsening or new symptoms, please return to the emergency room or call 911 Prescriptions: New oxycodone 5 mg tablet 5 mg PO Q8H PRN (Reason: pain) Qty: 14 RF: 0 No Action famotidine 20 mg tablet 20 mg PO BEDTIME Qty: 90 RF: 2 calcitriol 0.5 mcg Capsule 0.5 mcg PO Q48H RF: 0 acetaminophen [Tylenol] 325 mg Tablet 650 mg PO Q4H PRN (Reason: PAIN OR ELEVATED TEMP) RF: 0 cyanocobalamin (vitamin B-12) [Vitamin B-12] 1,000 mcg Tablet 1,000 mcg PO DAILY RF: 0 ferrous sulfate [Feosol] 325 mg (65 mg iron) Tablet 325 mg PO DAILY RF: 0 nitroglycerin [Nitrostat] 0.4 mg Tablet, Sublingual 0.4 mg SUBLINGUAL Q5M PRN (Reason: Angina) RF: 0 gabapentin 100 mg capsule 1 cap PO BID RF: 0 metoprolol succinate [Toprol XL] 25 mg Tablet Extended Release 24 Hr 75 mg PO DAILY RF: 0 insulin lispro 100 unit/mL Solution 1 sliding scale dose SUBCUT TIDAC RF: 0 sevelamer carbonate 800 mg tablet 800 mg PO BEDTIME RF: 0 Dulera 200-5 mcg/actuation HFA aerosol inhaler 2 puff inhalation BID RF: 0 Brilinta 90 mg tablet 1 tab PO BID RF: 0 atorvastatin 80 mg tablet 80 mg PO BEDTIME RF: 0 paroxetine HCl 20 mg tablet 20 mg PO DAILY RF: 0 montelukast 10 mg tablet 10 mg PO BEDTIME RF: 0 omega-3 acid ethyl esters 1 gram capsule 2 cap PO BID RF: 0 Trulicity 1.5 mg/0.5 mL pen injector 1.5 mg subcut MO RF: 0 fenofibrate micronized 134 mg capsule 134 mg PO DAILY RF: 0 albuterol sulfate [ProAir HFA] 90 mcg/actuation HFA aerosol inhaler 2 puff inhalation Q4H PRN (Reason: Shortness Of Breath Or Wheezing) RF: 0 fluticasone propionate 50 mcg/actuation spray,suspension 2 spray intranasal BID RF: 0 cholecalciferol (vitamin D3) 25 mcg (1,000 unit) capsule 25 mcg PO DAILY RF: 0 sevelamer carbonate 800 mg tablet 800 mg PO TIDWMEAL RF: 0 aspirin 81 mg tablet,delayed release (DR/EC) 81 mg PO DAILY Qty: 90 RF: 1 Referrals: Francisco Meyer MD [Physician] - 2 days
[2021-02-12 22:00] VITALS: BP 104/28; PULSE 66; RESP 16; TEMP 36.3; O2SAT 97
[2021-02-12 22:06] LABS: Basophils Percent Auto 0.2 % (0-2); Eosinophils Absolute Auto 0.5 X10*3/uL (0.0-0.4); Eosinophils Percent Auto 3.4 % (0-4); Hemoglobin 10.4 g/dl (12.0-16.0); Imm Gran Pct Auto 0.7 % (0.0-0.4); Lymphocytes Absolute Auto 3.1 X10*3/uL (1.2-4.9); Lymphocytes Percent Auto 21.1 % (20-40); MANUAL DIFF FLAG SCAN; Mean Corpuscular HGB Conc 32.5 g/dl (31.0-35.0); Mean Corpuscular Volume 104.6 fL (80-98); Monocytes Absolute Auto 1.7 X10*3/uL (0.1-1.2); Monocytes Percent Auto 11.3 % (2-11); Neutrophils Absolute Auto 9.4 X10*3/uL (2.0-8.3); Neutrophils Percent Auto 63.3 % (45-73); Platelet Count 309 X10*3/uL (160-400); Red Blood Count 3.06 X10*6/uL (4.20-5.50); Red Cell Distribution Width 15.4 % (11.0-16.0); SCAN SMEAR FLAG 1; White Blood Count 14.9 X10*3/uL (4.8-10.8)
[2021-02-12 22:17] LABS: INTERNATIONAL NORM RATIO 1.1 (0.9-1.1); Prothrombin Time 12.8 SEC (9.9-13.0)
--- NOTE | 2021-02-12 22:18 | PC.NURSE ---
TYESHA WOODY IS AWARE OF PATIENT LOW BLOOD PRESSURE .
[2021-02-12 22:23] LABS: SLIDE REVIEW VERIFIED
[2021-02-12 22:43] LABS: Alanine Aminotransferase 26 U/L (0-31); Albumin Level 3.2 g/dL (3.5-5.0); Alkaline Phosphatase 159 U/L (39-117); Anion Gap 19 (12-20); Aspartate Amino Transferase 55 U/L (5-31); Bilirubin Direct 0.2 mg/dL (0.0-0.5); Bilirubin Total 0.7 mg/dL (0.0-1.0); Blood Urea Nitrogen 38 mg/dL (9-16); Carbon Dioxide 26 mmol/L (22-29); Chloride 95 mmol/L (96-108); Creatinine Clr Calc Pharmacy 7.1; Estimated Glomerular Filt Rate 7; Glucose Random 135 mg/dL (60-115); Sodium 134 mmol/L (135-145); Total Protein 7.1 g/dL (6.5-8.0)
[2021-02-12] MEDS: Insulin Regular, Human 100 UNIT/ML 3 ML VIAL 10 UNIT IVPUSH (22:59)
[2021-02-12] MEDS: Calcium Gluconate/NaCl,Iso-Osm 2 GM/100 ML PLAST..BAG IV (23:01)
[2021-02-12] MEDS: Sodium Polystyrene Sulfon/Sorb 15 GM/60 ML ORAL.SUSP 30 GM PO (23:01)
--- NOTE | 2021-02-12 23:16 | PC.NURSE ---
Pt medicated per AUG. POC 401 mg/dl. Plan for q30 minute POCs. Per MD to remove cervical collar. Continue to monitor.
[2021-02-12 23:52] LABS: Glucose, Whole Blood 401 mg/dL (60-115)
[2021-02-12 23:53] LABS: Glucose, Whole Blood 332 mg/dL (60-115)
[2021-02-13 00:13] VITALS: BP 115/34; PULSE 76; RESP 16; O2SAT 98
--- NOTE | 2021-02-13 00:21 | PC.NURSE ---
ER MD REPORTS THAT PLAN FOR PT IS TO REPEAT LABS TO CHECK POTASSIUM. IF POTASSIUM RETURNS TO NORMAL, PT TO BE DISCHARGED AND FOLLOW UP WITH ORTHO.
[2021-02-13] MEDS: oxyCODONE HCl Immed Release 5 MG TABLET PO (00:27)
[2021-02-13 00:41] LABS: Glucose, Whole Blood 293 mg/dL (60-115)
[2021-02-13 01:57] LABS: Anion Gap 18 (12-20); Blood Urea Nitrogen 38 mg/dL (9-16); Carbon Dioxide 26 mmol/L (22-29); Chloride 94 mmol/L (96-108); Estimated Glomerular Filt Rate 6; Glucose Random 260 mg/dL (60-115); Potassium 4.7 mmol/L (3.3-5.1); Sodium 133 mmol/L (135-145)
--- NOTE | 2021-02-13 03:06 | PC.NURSE ---
[facility]'s partner called and spoke to her on her cell phone. pt's ostomy bag emptied and changed.
--- NOTE | 2021-02-13 03:08 | PC.NURSE ---
RIGHT UPPER EXTREMITY PLACED IN SLING, SECURED. PT HAS BILATERAL COOL SKIN ON HANDS. GOOD RADIAL PULSE ON RIGHT. PT HAS HEMATOMA AND BRUISE ON RIGHT FOREHEAD.
== END 2021-02-13 03:47 | disposition home or self-care (01) ==
PROVIDERS: Emergency Provider Emergency Medicine; PCP Family Medicine
DX: E87.5 Hyperkalemia (principal); S42.251A Displaced fracture of greater tuberosity of right humerus, initial encounter for closed fracture; S00.83XA Contusion of other part of head, initial encounter; W05.0XXA Fall from non-moving wheelchair, initial encounter; Z91.81 History of falling; Y93.9 Activity, unspecified; Y92.129 Unspecified place in nursing home as the place of occurrence of the external cause; Y99.9 Unspecified external cause status
CPT/HCPCS: 36415; 70450; 72125; 73030; 80048; 80076; 82947; 85025; 85610; 96365; 96366; 96375; 99284; 99291; J0610

== ENCOUNTER 2021-02-14 00:33 | Outpatient (REF) | payer MEDICARE, SELFPAY ==
[2021-02-14 06:49] LABS: Hematocrit 30.4 % (37-47); Hemoglobin 9.4 g/dl (12.0-16.0); Mean Corpuscular HGB Conc 30.9 g/dl (31.0-35.0); Mean Corpuscular Hemoglobin 32.8 pg (27.0-33.0); Mean Corpuscular Volume 105.9 fL (80-98); Mean Platelet Volume 11.3 fL (9.4-12.3); Platelet Count 298 X10*3/uL (160-400); Red Blood Count 2.87 X10*6/uL (4.20-5.50); Red Cell Distribution Width 15.1 % (11.0-16.0); White Blood Count 13.3 X10*3/uL (4.8-10.8)
[2021-02-14 07:31] LABS: Anion Gap 22 (12-20); Blood Urea Nitrogen 59 mg/dL (9-16); Calcium 8.5 mg/dL (8.4-10.2); Carbon Dioxide 18 mmol/L (22-29); Chloride 100 mmol/L (96-108); Glucose Random 118 mg/dL (60-115); Sodium 134 mmol/L (135-145)
[2021-02-14 07:45] LABS: Estimated Glomerular Filt Rate 5
== END 2021-02-14 00:34 | disposition home or self-care (01) ==
LOC: HO.MMNH1L 00:33
PROVIDERS: Visit Provider Family Medicine
DX: N18.6 End stage renal disease (principal)
CPT/HCPCS: 36415; 80048; 85027

== ENCOUNTER 2021-02-21 05:00 | Outpatient (REF) | payer MEDICARE, SELFPAY ==
[2021-02-21 07:06] LABS: Hematocrit 29.5 % (37-47); Hemoglobin 9.5 g/dl (12.0-16.0); Mean Corpuscular HGB Conc 32.2 g/dl (31.0-35.0); Mean Corpuscular Hemoglobin 33.9 pg (27.0-33.0); Mean Corpuscular Volume 105.4 fL (80-98); Mean Platelet Volume 11.1 fL (9.4-12.3); Platelet Count 292 X10*3/uL (160-400); Red Cell Distribution Width 14.9 % (11.0-16.0); White Blood Count 11.5 X10*3/uL (4.8-10.8)
[2021-02-21 08:04] LABS: Anion Gap 19 (12-20); Blood Urea Nitrogen 74 mg/dL (9-16); Calcium 8.2 mg/dL (8.4-10.2); Carbon Dioxide 23 mmol/L (22-29); Chloride 97 mmol/L (96-108); Estimated Glomerular Filt Rate 5; Glucose Random 103 mg/dL (60-115); Potassium 5.9 mmol/L (3.3-5.1); Sodium 133 mmol/L (135-145)
== END 2021-02-21 05:01 | disposition home or self-care (01) ==
LOC: HO.MMNH1L 05:00
PROVIDERS: Visit Provider Family Medicine
DX: N18.6 End stage renal disease (principal)
CPT/HCPCS: 36415; 80048; 85027

== ENCOUNTER 2021-02-28 01:07 | Outpatient (REF) | payer MEDICARE, SELFPAY ==
[2021-02-28 06:56] LABS: Hematocrit 31.7 % (37-47); Hemoglobin 9.9 g/dl (12.0-16.0); Mean Corpuscular HGB Conc 31.2 g/dl (31.0-35.0); Mean Corpuscular Hemoglobin 32.6 pg (27.0-33.0); Mean Corpuscular Volume 104.3 fL (80-98); Mean Platelet Volume 11.7 fL (9.4-12.3); Platelet Count 264 X10*3/uL (160-400); Red Blood Count 3.04 X10*6/uL (4.20-5.50); Red Cell Distribution Width 13.8 % (11.0-16.0); White Blood Count 10.9 X10*3/uL (4.8-10.8)
[2021-02-28 07:27] LABS: Anion Gap 20 (12-20); Blood Urea Nitrogen 59 mg/dL (9-16); Carbon Dioxide 18 mmol/L (22-29); Chloride 100 mmol/L (96-108); Glucose Random 93 mg/dL (60-115); Potassium 5.6 mmol/L (3.3-5.1); Sodium 132 mmol/L (135-145)
[2021-02-28 08:13] LABS: Estimated Glomerular Filt Rate 4
== END 2021-02-28 01:08 | disposition home or self-care (01) ==
LOC: HO.MMNH1L 01:07
PROVIDERS: Visit Provider Family Medicine
DX: N18.6 End stage renal disease (principal)
CPT/HCPCS: 36415; 80048; 85027

== ENCOUNTER 2021-03-08 21:23 | Outpatient (REF) | payer MEDICARE, SELFPAY ==
[2021-03-08 07:14] LABS: Hematocrit 32.6 % (37-47); Hemoglobin 10.3 g/dl (12.0-16.0); Mean Corpuscular HGB Conc 31.6 g/dl (31.0-35.0); Mean Corpuscular Hemoglobin 33.2 pg (27.0-33.0); Mean Corpuscular Volume 105.2 fL (80-98); Mean Platelet Volume 11.4 fL (9.4-12.3); Platelet Count 300 X10*3/uL (160-400); Red Cell Distribution Width 15.3 % (11.0-16.0); White Blood Count 11.9 X10*3/uL (4.8-10.8)
[2021-03-08 08:31] LABS: Anion Gap 14 (12-20); Blood Urea Nitrogen 33 mg/dL (9-16); Calcium 8.3 mg/dL (8.4-10.2); Carbon Dioxide 25 mmol/L (22-29); Chloride 100 mmol/L (96-108); Estimated Glomerular Filt Rate 7; Glucose Random 92 mg/dL (60-115); Potassium 4.7 mmol/L (3.3-5.1); Sodium 134 mmol/L (135-145)
== END 2021-03-08 21:24 | disposition home or self-care (01) ==
LOC: HO.MMNH1L 21:23
PROVIDERS: Visit Provider Family Medicine
DX: N18.6 End stage renal disease (principal)
CPT/HCPCS: 36415; 80048; 85027

== ENCOUNTER 2021-03-14 | Outpatient (REF) | payer MEDICARE, SELFPAY ==
[2021-03-14 06:24] LABS: Hematocrit 34.3 % (37-47); Hemoglobin 10.7 g/dl (12.0-16.0); Mean Corpuscular HGB Conc 31.2 g/dl (31.0-35.0); Mean Corpuscular Hemoglobin 32.6 pg (27.0-33.0); Mean Corpuscular Volume 104.6 fL (80-98); Mean Platelet Volume 11.6 fL (9.4-12.3); Platelet Count 243 X10*3/uL (160-400); Red Blood Count 3.28 X10*6/uL (4.20-5.50); Red Cell Distribution Width 14.6 % (11.0-16.0); White Blood Count 11.1 X10*3/uL (4.8-10.8)
[2021-03-14 07:33] LABS: Anion Gap 18 (12-20); Blood Urea Nitrogen 40 mg/dL (9-16); Calcium 8.4 mg/dL (8.4-10.2); Carbon Dioxide 20 mmol/L (22-29); Chloride 101 mmol/L (96-108); Glucose Random 83 mg/dL (60-115); Potassium 5.6 mmol/L (3.3-5.1); Sodium 133 mmol/L (135-145)
[2021-03-14 07:46] LABS: Estimated Glomerular Filt Rate 5
== END 2021-03-14 00:01 | disposition home or self-care (01) ==
LOC: HO.MMNH1L
PROVIDERS: Visit Provider Family Medicine
DX: N18.6 End stage renal disease (principal)
CPT/HCPCS: 36415; 80048; 85027

== ENCOUNTER 2021-03-18 12:38 | Outpatient (REF) | payer MEDICARE, SELFPAY ==
--- NOTE | ~2021-03-18 | XR_ITS ---
EXAMINATION: XR SHOULDER, RIGHT CLINICAL INFORMATION: Right shoulder pain. COMPARISON: Right shoulder radiographs dated 02/12/2021. TECHNIQUE: AP and scapular Y views of the right shoulder. FINDINGS: Redemonstration of a comminuted proximal humeral fracture in unchanged anatomic alignment with interval new bone/callus formation. No new lytic or blastic osseous lesion. Moderate acromioclavicular osteoarthritis with lateral subacromial spurring, unchanged. Atherosclerotic calcifications. XR/XR shoulder RT min 2V IMPRESSION: Comminuted proximal humeral fracture in unchanged anatomic alignment with interval new bone/callus formation.
== END 2021-03-18 12:39 | disposition home or self-care (01) ==
LOC: HO.HOSX 12:38
PROVIDERS: Visit Provider Physician Assistant
DX: S42.201D Unspecified fracture of upper end of right humerus, subsequent encounter for fracture with routine healing (principal)
CPT/HCPCS: 73030; 99202

== ENCOUNTER 2021-03-21 00:35 | Outpatient (REF) | payer MEDICARE, SELFPAY ==
[2021-03-21 06:51] LABS: Hematocrit 35.1 % (37-47); Hemoglobin 11.2 g/dl (12.0-16.0); Mean Corpuscular HGB Conc 31.9 g/dl (31.0-35.0); Mean Corpuscular Hemoglobin 32.9 pg (27.0-33.0); Mean Corpuscular Volume 103.2 fL (80-98); Mean Platelet Volume 11.2 fL (9.4-12.3); Platelet Count 247 X10*3/uL (160-400); Red Cell Distribution Width 14.4 % (11.0-16.0); White Blood Count 12.8 X10*3/uL (4.8-10.8)
[2021-03-21 08:51] LABS: Anion Gap 19 (12-20); Blood Urea Nitrogen 67 mg/dL (9-16); Calcium 8.6 mg/dL (8.4-10.2); Carbon Dioxide 18 mmol/L (22-29); Chloride 101 mmol/L (96-108); Estimated Glomerular Filt Rate 4; Glucose Random 83 mg/dL (60-115); Potassium 5.8 mmol/L (3.3-5.1); Sodium 132 mmol/L (135-145)
== END 2021-03-21 00:36 | disposition home or self-care (01) ==
LOC: HO.MMNH2L 00:35
PROVIDERS: Visit Provider Family Medicine
DX: N18.6 End stage renal disease (principal)
CPT/HCPCS: 36415; 80048; 85027

== ENCOUNTER 2021-03-28 00:21 | Outpatient (REF) | payer MEDICARE, SELFPAY | END 2021-03-28 00:22 | disposition home or self-care (01) | LOC: HO.MMNH2L 00:21 | PROVIDERS: Visit Provider Family Medicine | DX: Z13.89 Encounter for screening for other disorder (principal) ==

== ENCOUNTER 2021-03-29 | Outpatient (REF) | payer OTHER, SELFPAY ==
[2021-03-29 06:14] LABS: Hematocrit 31.8 % (37-47); Hemoglobin 9.9 g/dl (12.0-16.0); Mean Corpuscular HGB Conc 31.1 g/dl (31.0-35.0); Mean Corpuscular Hemoglobin 31.6 pg (27.0-33.0); Mean Corpuscular Volume 101.6 fL (80-98); Mean Platelet Volume 10.9 fL (9.4-12.3); Platelet Count 389 X10*3/uL (160-400); Red Blood Count 3.13 X10*6/uL (4.20-5.50); Red Cell Distribution Width 14.8 % (11.0-16.0); White Blood Count 14.2 X10*3/uL (4.8-10.8)
[2021-03-29 07:16] LABS: Anion Gap 17 (12-20); Blood Urea Nitrogen 46 mg/dL (9-16); Calcium 8.4 mg/dL (8.4-10.2); Carbon Dioxide 23 mmol/L (22-29); Chloride 100 mmol/L (96-108); Estimated Glomerular Filt Rate 6; Glucose Random 96 mg/dL (60-115); Potassium 5.3 mmol/L (3.3-5.1); Sodium 135 mmol/L (135-145)
== END 2021-03-29 00:01 | disposition home or self-care (01) ==
LOC: HO.MMNH2L
PROVIDERS: Visit Provider Family Medicine
DX: Z13.89 Encounter for screening for other disorder (principal)
CPT/HCPCS: 36415; 80048; 85027

== ENCOUNTER 2021-04-04 01:16 | Outpatient (REF) | payer MEDICARE, SELFPAY | END 2021-04-04 01:17 | disposition home or self-care (01) | LOC: HO.MMNH2L 01:16 | PROVIDERS: Visit Provider Family Medicine | DX: Z13.89 Encounter for screening for other disorder (principal) ==

== ENCOUNTER 2021-04-05 06:51 | Outpatient (REF) | payer MEDICARE, SELFPAY ==
[2021-04-05 07:14] LABS: Hematocrit 33.4 % (37-47); Hemoglobin 10.5 g/dl (12.0-16.0); Mean Corpuscular HGB Conc 31.4 g/dl (31.0-35.0); Mean Corpuscular Hemoglobin 31.3 pg (27.0-33.0); Mean Corpuscular Volume 99.7 fL (80-98); Mean Platelet Volume 11.2 fL (9.4-12.3); Platelet Count 289 X10*3/uL (160-400); Red Blood Count 3.35 X10*6/uL (4.20-5.50); Red Cell Distribution Width 14.6 % (11.0-16.0); White Blood Count 12.4 X10*3/uL (4.8-10.8)
[2021-04-05 07:38] LABS: Anion Gap 18 (12-20); Blood Urea Nitrogen 51 mg/dL (9-16); Calcium 8.3 mg/dL (8.4-10.2); Carbon Dioxide 21 mmol/L (22-29); Chloride 102 mmol/L (96-108); Estimated Glomerular Filt Rate 6; Glucose Random 113 mg/dL (60-115); Potassium 5.5 mmol/L (3.3-5.1); Sodium 135 mmol/L (135-145)
== END 2021-04-05 06:52 | disposition home or self-care (01) ==
LOC: HO.MMNH2L 06:51
PROVIDERS: Visit Provider Family Medicine
DX: N18.6 End stage renal disease (principal)
CPT/HCPCS: 36415; 80048; 85027

== ENCOUNTER 2021-04-06 07:32 | Outpatient (REF) | payer MEDICARE, SELFPAY ==
[2021-04-06 08:09] LABS: INTERNATIONAL NORM RATIO 1.3 (0.9-1.1); Prothrombin Time 14.7 SEC (9.9-13.0)
== END 2021-04-06 07:33 | disposition home or self-care (01) ==
LOC: HO.MMNH2L 07:32
PROVIDERS: Visit Provider Family Medicine
DX: Z01.812 Encounter for preprocedural laboratory examination (principal)
CPT/HCPCS: 36415; 85610

== ENCOUNTER 2021-04-12 | Outpatient (REF) | payer MEDICARE, SELFPAY ==
[2021-04-12 06:39] LABS: Hematocrit 32.2 % (37-47); Hemoglobin 10.1 g/dl (12.0-16.0); Mean Corpuscular HGB Conc 31.4 g/dl (31.0-35.0); Mean Corpuscular Hemoglobin 30.6 pg (27.0-33.0); Mean Corpuscular Volume 97.6 fL (80-98); Mean Platelet Volume 11.8 fL (9.4-12.3); Platelet Count 291 X10*3/uL (160-400); Red Cell Distribution Width 14.6 % (11.0-16.0); White Blood Count 11.9 X10*3/uL (4.8-10.8)
[2021-04-12 07:36] LABS: Anion Gap 17 (12-20); Blood Urea Nitrogen 52 mg/dL (9-16); Calcium 8.2 mg/dL (8.4-10.2); Carbon Dioxide 19 mmol/L (22-29); Chloride 101 mmol/L (96-108); Estimated Glomerular Filt Rate 6; Glucose Random 76 mg/dL (60-115); Potassium 6.4 mmol/L (3.3-5.1); Sodium 131 mmol/L (135-145)
== END 2021-04-12 00:01 | disposition home or self-care (01) ==
LOC: HO.MMNH2L
PROVIDERS: Visit Provider Family Medicine
DX: N18.6 End stage renal disease (principal)
CPT/HCPCS: 36415; 80048; 85027

== ENCOUNTER 2021-04-15 12:58 | Outpatient (REF) | payer MEDICARE, SELFPAY ==
--- NOTE | ~2021-04-15 | XR_ITS ---
EXAMINATION: XR SHOULDER, RIGHT CLINICAL INFORMATION: Right shoulder pain. COMPARISON: Most recent right shoulder radiographs dated 03/18/2021 TECHNIQUE: AP and scapular Y views of the right shoulder. FINDINGS: Redemonstration of a chronic humeral head fracture in unchanged anatomic alignment with mild new bone/callus formation. Acromioclavicular and glenohumeral osteoarthritis, unchanged. Prominent atherosclerotic calcifications. XR/XR shoulder RT min 2V IMPRESSION: Proximal humeral head fracture in unchanged anatomic alignment with mild interval increase in new bone/callus formation when compared to the most recent radiographs.
== END 2021-04-15 12:59 | disposition home or self-care (01) ==
LOC: HO.HOSX 12:58
PROVIDERS: Visit Provider Physician Assistant
DX: S42.201D Unspecified fracture of upper end of right humerus, subsequent encounter for fracture with routine healing (principal)
CPT/HCPCS: 73030; 99212

== ENCOUNTER 2021-04-18 00:23 | Outpatient (REF) | payer MEDICARE, SELFPAY ==
[2021-04-18 06:42] LABS: Hematocrit 31.8 % (37-47); Hemoglobin 10.2 g/dl (12.0-16.0); Mean Corpuscular HGB Conc 32.1 g/dl (31.0-35.0); Mean Corpuscular Hemoglobin 31.3 pg (27.0-33.0); Mean Corpuscular Volume 97.5 fL (80-98); Mean Platelet Volume 11.8 fL (9.4-12.3); Platelet Count 283 X10*3/uL (160-400); Red Blood Count 3.26 X10*6/uL (4.20-5.50); White Blood Count 12.7 X10*3/uL (4.8-10.8)
[2021-04-18 07:39] LABS: Anion Gap 22 (12-20); Blood Urea Nitrogen 77 mg/dL (9-16); Calcium 8.4 mg/dL (8.4-10.2); Carbon Dioxide 18 mmol/L (22-29); Chloride 98 mmol/L (96-108); Estimated Glomerular Filt Rate 4; Glucose Random 101 mg/dL (60-115); Potassium 6.8 mmol/L (3.3-5.1); Sodium 131 mmol/L (135-145)
== END 2021-04-18 00:24 | disposition home or self-care (01) ==
LOC: HO.MMNH2L 00:23
PROVIDERS: Visit Provider Family Medicine
DX: N18.6 End stage renal disease (principal)
CPT/HCPCS: 36415; 80048; 85027

== ENCOUNTER 2021-04-25 00:23 | Outpatient (REF) | payer MEDICARE, SELFPAY ==
[2021-04-25 06:59] LABS: Hematocrit 32.2 % (37-47); Hemoglobin 10.1 g/dl (12.0-16.0); Mean Corpuscular HGB Conc 31.4 g/dl (31.0-35.0); Mean Corpuscular Hemoglobin 31.3 pg (27.0-33.0); Mean Corpuscular Volume 99.7 fL (80-98); Mean Platelet Volume 11.4 fL (9.4-12.3); Platelet Count 310 X10*3/uL (160-400); Red Blood Count 3.23 X10*6/uL (4.20-5.50); Red Cell Distribution Width 15.3 % (11.0-16.0); White Blood Count 13.5 X10*3/uL (4.8-10.8)
[2021-04-25 07:55] LABS: Anion Gap 18 (12-20); Blood Urea Nitrogen 59 mg/dL (9-16); Calcium 8.4 mg/dL (8.4-10.2); Carbon Dioxide 20 mmol/L (22-29); Chloride 98 mmol/L (96-108); Estimated Glomerular Filt Rate 5; Glucose Random 94 mg/dL (60-115); Potassium 5.9 mmol/L (3.3-5.1); Sodium 130 mmol/L (135-145)
== END 2021-04-25 00:24 | disposition home or self-care (01) ==
LOC: HO.MMNH2L 00:23
PROVIDERS: Visit Provider Family Medicine
DX: N18.6 End stage renal disease (principal)
CPT/HCPCS: 36415; 80048; 85027

== ENCOUNTER 2021-05-02 08:13 | Outpatient (REF) | payer MEDICARE, SELFPAY | END 2021-05-02 08:14 | disposition home or self-care (01) | LOC: HO.MMNH2L 08:13 | PROVIDERS: Visit Provider Family Medicine | DX: Z13.89 Encounter for screening for other disorder (principal) ==

== ENCOUNTER 2021-05-03 | Outpatient (REF) | payer MEDICARE, SELFPAY ==
[2021-05-03 06:56] LABS: Hematocrit 27.3 % (37.0-47.0); Hemoglobin 8.6 g/dl (12.0-16.0); Mean Corpuscular HGB Conc 31.5 g/dl (31.0-35.0); Mean Corpuscular Hemoglobin 30.9 pg (27.0-33.0); Mean Corpuscular Volume 98.2 fL (80.0-98.0); Mean Platelet Volume 11.1 fL (9.4-12.3); Platelet Count 248 X10*3/uL (160-400); Red Blood Count 2.78 X10*6/uL (4.20-5.50); Red Cell Distribution Width 16.1 % (11.0-16.0); White Blood Count 15.2 X10*3/uL (4.8-10.8)
[2021-05-03 07:34] LABS: Anion Gap 13 (12-20); Blood Urea Nitrogen 29 mg/dL (9-16); Calcium 7.6 mg/dL (8.4-10.2); Carbon Dioxide 27 mmol/L (22-29); Chloride 95 mmol/L (96-108); Estimated Glomerular Filt Rate 9; Glucose Random 101 mg/dL (60-115); Potassium 4.3 mmol/L (3.3-5.1); Sodium 131 mmol/L (135-145)
== END 2021-05-03 00:01 | disposition home or self-care (01) ==
LOC: HO.MMNH2L
PROVIDERS: Visit Provider Family Medicine
DX: Z13.89 Encounter for screening for other disorder (principal)
CPT/HCPCS: 36415; 80048; 85027

== ENCOUNTER 2021-05-06 13:04 | Outpatient (REF) | payer MEDICARE, SELFPAY ==
[2021-05-06 13:37] LABS: Basophils Absolute Auto 0.1 X10*3/uL (0.0-0.2); Basophils Percent Auto 0.2 % (0-2); Hematocrit 23.6 % (37.0-47.0); Hemoglobin 7.3 g/dl (12.0-16.0); Imm Gran Abs Auto 0.41 X10*3/uL (0.00-0.03); Lymphocytes Absolute Auto 5.2 X10*3/uL (1.2-4.9); Lymphocytes Percent Auto 12.5 % (20-40); MANUAL DIFF FLAG SCAN; Mean Corpuscular HGB Conc 30.9 g/dl (31.0-35.0); Mean Corpuscular Hemoglobin 31.5 pg (27.0-33.0); Mean Corpuscular Volume 101.7 fL (80.0-98.0); Mean Platelet Volume 11.2 fL (9.4-12.3); Monocytes Absolute Auto 2.6 X10*3/uL (0.1-1.2); Monocytes Percent Auto 6.3 % (2-11); Neutrophils Absolute Auto 33.2 x10*3/uL (2.0-8.3); Platelet Count 312 X10*3/uL (160-400); Red Blood Count 2.32 X10*6/uL (4.20-5.50); Red Cell Distribution Width 16.5 % (11.0-16.0); SCAN SMEAR FLAG 1
[2021-05-06 13:40] LABS: White Blood Count 41.6 X10*3/uL (4.8-10.8)
[2021-05-06 14:05] LABS: SLIDE REVIEW VERIFIED
[2021-05-06 14:08] LABS: Alanine Aminotransferase 23 U/L (0-31); Albumin Level 2.9 g/dL (3.5-5.0); Alkaline Phosphatase 115 U/L (39-117); Anion Gap 18 (12-20); Aspartate Amino Transferase 39 U/L (5-31); Bilirubin Direct 0.4 mg/dL (0.0-0.5); Bilirubin Total 0.6 mg/dL (0.0-1.0); Blood Urea Nitrogen 46 mg/dL (9-16); Calcium 8.1 mg/dL (8.4-10.2); Carbon Dioxide 25 mmol/L (22-29); Chloride 92 mmol/L (96-108); Estimated Glomerular Filt Rate 6; Glucose Random 259 mg/dL (60-115); Potassium 5.2 mmol/L (3.3-5.1); Sodium 130 mmol/L (135-145); Total Protein 5.6 g/dL (6.5-8.0)
== END 2021-05-06 13:05 | disposition home or self-care (01) ==
LOC: HO.MMNH2L 13:04
PROVIDERS: Visit Provider Family Medicine
DX: Z79.899 Other long term (current) drug therapy (principal)
CPT/HCPCS: 36415; 80048; 80076; 85025

== ENCOUNTER 2021-05-09 00:58 | Outpatient (REF) | payer MEDICARE, SELFPAY | END 2021-05-09 00:59 | disposition home or self-care (01) | LOC: HO.MMNH2L 00:58 | PROVIDERS: Visit Provider Family Medicine | DX: Z13.89 Encounter for screening for other disorder (principal) ==

== ENCOUNTER 2021-05-13 06:38 | Outpatient (REF) | payer MEDICARE, SELFPAY ==
[2021-05-13 07:14] LABS: Hematocrit 32.8 % (37.0-47.0); Hemoglobin 10.5 g/dl (12.0-16.0); Mean Corpuscular Hemoglobin 30.3 pg (27.0-33.0); Mean Corpuscular Volume 94.5 fL (80.0-98.0); Mean Platelet Volume 11.4 fL (9.4-12.3); Platelet Count 217 X10*3/uL (160-400); Red Blood Count 3.47 X10*6/uL (4.20-5.50); Red Cell Distribution Width 17.5 % (11.0-16.0); White Blood Count 10.2 X10*3/uL (4.8-10.8)
[2021-05-13 07:26] LABS: Alanine Aminotransferase 48 U/L (0-31); Albumin Level 2.5 g/dL (3.5-5.0); Alkaline Phosphatase 179 U/L (39-117); Anion Gap 13 (12-20); Aspartate Amino Transferase 91 U/L (5-31); Bilirubin Total 0.8 mg/dL (0.0-1.0); Blood Urea Nitrogen 16 mg/dL (9-16); Calcium 7.4 mg/dL (8.4-10.2); Carbon Dioxide 24 mmol/L (22-29); Chloride 99 mmol/L (96-108); Estimated Glomerular Filt Rate 13; Glucose Random 100 mg/dL (60-115); Potassium 3.2 mmol/L (3.3-5.1); Sodium 133 mmol/L (135-145); Total Protein 5.4 g/dL (6.5-8.0)
== END 2021-05-13 06:39 | disposition home or self-care (01) ==
LOC: HO.MMNH2L 06:38
PROVIDERS: Visit Provider Family Medicine
DX: D50.0 Iron deficiency anemia secondary to blood loss (chronic) (principal)
CPT/HCPCS: 36415; 80053; 85027

== ENCOUNTER 2021-05-16 00:43 | Outpatient (REF) | payer MEDICARE, SELFPAY ==
[2021-05-16 07:31] LABS: Hematocrit 34.8 % (37.0-47.0); Hemoglobin 10.7 g/dl (12.0-16.0); Mean Corpuscular HGB Conc 30.7 g/dl (31.0-35.0); Mean Corpuscular Hemoglobin 30.7 pg (27.0-33.0); Mean Corpuscular Volume 99.7 fL (80.0-98.0); Mean Platelet Volume 12.1 fL (9.4-12.3); Platelet Count 245 X10*3/uL (160-400); Red Blood Count 3.49 X10*6/uL (4.20-5.50); Red Cell Distribution Width 18.9 % (11.0-16.0); White Blood Count 13.9 X10*3/uL (4.8-10.8)
[2021-05-16 08:57] LABS: Anion Gap 15 (12-20); Blood Urea Nitrogen 46 mg/dL (9-16); Calcium 7.7 mg/dL (8.4-10.2); Carbon Dioxide 24 mmol/L (22-29); Chloride 97 mmol/L (96-108); Estimated Glomerular Filt Rate 5; Glucose Random 185 mg/dL (60-115); Potassium 4.1 mmol/L (3.3-5.1); Sodium 132 mmol/L (135-145)
== END 2021-05-16 00:44 | disposition home or self-care (01) ==
LOC: HO.MMNH2L 00:43
PROVIDERS: Visit Provider Family Medicine
DX: N18.6 End stage renal disease (principal)
CPT/HCPCS: 36415; 80048; 85027

== ENCOUNTER 2021-05-23 22:13 | Outpatient (REF) | payer MEDICARE, SELFPAY ==
[2021-05-23 07:10] LABS: Hematocrit 38.8 % (37.0-47.0); Mean Corpuscular HGB Conc 30.9 g/dl (31.0-35.0); Mean Corpuscular Hemoglobin 32.1 pg (27.0-33.0); Mean Corpuscular Volume 103.7 fL (80.0-98.0); Mean Platelet Volume 11.5 fL (9.4-12.3); Platelet Count 271 X10*3/uL (160-400); Red Blood Count 3.74 X10*6/uL (4.20-5.50); Red Cell Distribution Width 20.8 % (11.0-16.0); White Blood Count 13.1 X10*3/uL (4.8-10.8)
[2021-05-23 07:25] LABS: Anion Gap 16 (12-20); Blood Urea Nitrogen 39 mg/dL (9-16); Calcium 8.5 mg/dL (8.4-10.2); Carbon Dioxide 25 mmol/L (22-29); Chloride 100 mmol/L (96-108); Glucose Random 86 mg/dL (60-115); Potassium 5.7 mmol/L (3.3-5.1); Sodium 135 mmol/L (135-145)
[2021-05-23 08:06] LABS: Estimated Glomerular Filt Rate 8
== END 2021-05-23 22:14 | disposition home or self-care (01) ==
LOC: HO.MMNH2L 22:13
PROVIDERS: Visit Provider Family Medicine
DX: N18.6 End stage renal disease (principal)
CPT/HCPCS: 36415; 80048; 85027

== ENCOUNTER 2021-05-30 01:03 | Outpatient (REF) | payer MEDICARE, SELFPAY | END 2021-05-30 01:04 | disposition home or self-care (01) | LOC: HO.MMNH2L 01:03 | PROVIDERS: Visit Provider Family Medicine | DX: Z13.89 Encounter for screening for other disorder (principal) ==

== ENCOUNTER 2021-05-31 15:23 | Outpatient (REF) | payer MEDICARE, SELFPAY ==
[2021-05-31 16:48] LABS: Mean Corpuscular Hemoglobin 31.4 pg (27.0-33.0); Mean Corpuscular Volume 101.4 fL (80.0-98.0); Mean Platelet Volume 11.2 fL (9.4-12.3); Platelet Count 250 X10*3/uL (160-400); Red Blood Count 4.14 X10*6/uL (4.20-5.50); Red Cell Distribution Width 18.5 % (11.0-16.0)
[2021-05-31 17:14] LABS: Anion Gap 20 (12-20); Blood Urea Nitrogen 45 mg/dL (9-16); Calcium 8.9 mg/dL (8.4-10.2); Carbon Dioxide 26 mmol/L (22-29); Chloride 94 mmol/L (96-108); Estimated Glomerular Filt Rate 6; Glucose Random 112 mg/dL (60-115); Potassium 6.2 mmol/L (3.3-5.1); Sodium 134 mmol/L (135-145)
== END 2021-05-31 15:24 | disposition home or self-care (01) ==
LOC: HO.MMNH2L 15:23
PROVIDERS: Visit Provider Family Medicine
DX: Z13.89 Encounter for screening for other disorder (principal)
CPT/HCPCS: 36415; 80048; 85027

== ENCOUNTER 2021-06-01 12:34 | Outpatient (REF) | payer MEDICARE, SELFPAY ==
--- NOTE | ~2021-06-01 | XR_ITS ---
EXAMINATION: XR SHOULDER, RIGHT CLINICAL INFORMATION: Right shoulder pain COMPARISON: Right shoulder x-rays 04/15/2021 TECHNIQUE: Two views of the right shoulder. FINDINGS: Diffuse osteopenia. Redemonstrated proximal humeral fracture in similar alignment. There is no gross evidence of dislocation on these 2 views. Similar degenerative changes of the glenohumeral and acromioclavicular joints. Vascular calcifications again noted. XR/XR shoulder RT min 2V IMPRESSION: Proximal humeral fracture again noted in similar alignment.
== END 2021-06-01 12:35 | disposition home or self-care (01) ==
LOC: HO.HOSX 12:34
PROVIDERS: Visit Provider Physician Assistant
DX: S42.201D Unspecified fracture of upper end of right humerus, subsequent encounter for fracture with routine healing (principal)
CPT/HCPCS: 73030; 99212

== ENCOUNTER 2021-06-06 00:31 | Outpatient (REF) | payer MEDICARE, SELFPAY ==
[2021-06-06 07:49] LABS: Hematocrit 36.6 % (37.0-47.0); Hemoglobin 11.5 g/dl (12.0-16.0); Mean Corpuscular HGB Conc 31.4 g/dl (31.0-35.0); Mean Corpuscular Hemoglobin 31.4 pg (27.0-33.0); Mean Platelet Volume 11.7 fL (9.4-12.3); Platelet Count 260 X10*3/uL (160-400); Red Blood Count 3.66 X10*6/uL (4.20-5.50); Red Cell Distribution Width 17.1 % (11.0-16.0); White Blood Count 18.2 X10*3/uL (4.8-10.8)
[2021-06-06 08:52] LABS: Anion Gap 21 (12-20); Blood Urea Nitrogen 76 mg/dL (9-16); Calcium 8.5 mg/dL (8.4-10.2); Carbon Dioxide 17 mmol/L (22-29); Chloride 97 mmol/L (96-108); Estimated Glomerular Filt Rate 5; Glucose Random 88 mg/dL (60-115); Potassium 6.5 mmol/L (3.3-5.1); Sodium 128 mmol/L (135-145)
== END 2021-06-06 00:32 | disposition home or self-care (01) ==
LOC: HO.MMNH2L 00:31
PROVIDERS: Visit Provider Family Medicine
DX: N18.6 End stage renal disease (principal)
CPT/HCPCS: 36415; 80048; 85027

== ENCOUNTER 2021-06-10 13:37 | Outpatient (REF) | payer MEDICARE, SELFPAY ==
[2021-06-10 14:10] LABS: Appearance Urine CLOUDY; Color Urine OTHER; Glucose Urine UA 100 MG/DL (NEG); Leukocyte Esterase Urine 2+ (NEG); Nitrite Urine POS (NEG); Specific Gravity - Urine 1.025 (1.005-1.025); UACC Culture Trigger YES; Urine Blood 3+ (NEG); Urine Ketones 40 MG/DL (NEG); Urine Protein 3+ MG/DL (NEG-TRACE)
[2021-06-10 14:28] LABS: WBC Urine TNTC /HPF (0-4)
[2021-06-10 14:29] LABS: Bacteria Urine 3+ /LPF; RBC Urine 0 /HPF (0)
== END 2021-06-10 13:38 | disposition home or self-care (01) ==
LOC: HO.LNP 13:37
PROVIDERS: Visit Provider Family Medicine
DX: E11.9 Type 2 diabetes mellitus without complications (principal); Z99.2 Dependence on renal dialysis
CPT/HCPCS: 81001; 81003; 87086

== ENCOUNTER 2021-06-13 00:23 | Outpatient (REF) | payer MEDICARE, SELFPAY ==
[2021-06-13 06:58] LABS: Hematocrit 33.7 % (37.0-47.0); Hemoglobin 10.6 g/dl (12.0-16.0); Mean Corpuscular HGB Conc 31.5 g/dl (31.0-35.0); Mean Corpuscular Hemoglobin 30.5 pg (27.0-33.0); Mean Corpuscular Volume 96.8 fL (80.0-98.0); Mean Platelet Volume 11.6 fL (9.4-12.3); Platelet Count 265 X10*3/uL (160-400); Red Blood Count 3.48 X10*6/uL (4.20-5.50); Red Cell Distribution Width 16.6 % (11.0-16.0); White Blood Count 28.2 X10*3/uL (4.8-10.8)
[2021-06-13 07:52] LABS: Anion Gap 18 (12-20); Blood Urea Nitrogen 63 mg/dL (9-16); Calcium 8.4 mg/dL (8.4-10.2); Carbon Dioxide 21 mmol/L (22-29); Chloride 97 mmol/L (96-108); Glucose Random 106 mg/dL (60-115); Sodium 130 mmol/L (135-145)
[2021-06-13 08:08] LABS: Estimated Glomerular Filt Rate 4; Potassium 6.2 mmol/L (3.3-5.1)
== END 2021-06-13 00:24 | disposition home or self-care (01) ==
LOC: HO.MMNH2L 00:23
PROVIDERS: Visit Provider Family Medicine
DX: N18.6 End stage renal disease (principal)
CPT/HCPCS: 36415; 80048; 85027

== ENCOUNTER 2021-06-20 01:35 | Outpatient (REF) | payer MEDICARE, SELFPAY | END 2021-06-20 01:36 | disposition home or self-care (01) | LOC: HO.MMNH2L 01:35 | PROVIDERS: Visit Provider Family Medicine | DX: Z13.89 Encounter for screening for other disorder (principal) ==